=== PATIENT | male | born 1935 | race African-American/Black ===

== ENCOUNTER 2016-12-06 08:46 | Outpatient (CLI) | payer MEDICARE, OTHER ==
[~2016-12-06] VITALS: Ht 165.1 cm; Wt 71.2 kg
[2016-12-06 09:38] VITALS: BP 135/51
[2016-12-06] MEDS ORDERED: ACETAMINOPHEN325 M1 ORAL (10:55)
[2016-12-06] MEDS ORDERED: MINOXIDIL2.5 MG GT (10:55)
[2016-12-06] MEDS ORDERED: HYDRALAZINE HCL25 M1 GT (10:55)
[2016-12-06] MEDS ORDERED: MILK OF MA400 MG/51 ORAL (10:55)
[2016-12-06] MEDS ORDERED: CRANBERRY450 M3 GT (10:55)
[2016-12-06] MEDS ORDERED: ZYPREXA2.5 MG GT (10:55)
[2016-12-06] MEDS ORDERED: COLACE100 MG GT (10:55)
[2016-12-06] MEDS ORDERED: LABETALOL HCL100 MG GT (10:55)
[2016-12-06] MEDS ORDERED: LEVETIRACE100 MG/1 M GT (10:55)
[2016-12-06] MEDS ORDERED: LEVOTHYROXINE125 MCG GT (10:55)
[2016-12-06] MEDS ORDERED: TAMSULOSIN HCL0.4 MG GT (10:55)
[2016-12-06] MEDS ORDERED: NEPHROVITE1 TAB GT (10:55)
[2016-12-06] MEDS ORDERED: AMLODIPINE BESYL5 MG GT (10:55)
[2016-12-06] MEDS ORDERED: LORAZEPAM1 MG ORAL (10:55)
[2016-12-06] MEDS ORDERED: OMEPRAZOLE40 M1 GT (10:55)
--- NOTE | 2016-12-06 11:07 | GI Initial Consult Note ---
History of Present Illness General Date patient seen: Dec 06, 2016 Time patient seen: 10:00 Referring physician: KELLY Reason for Consultation: GTUBE REMOVAL Present Illness HPI 81 year old male patient referred by Dr. Valentino for G Tube removal today. The patient had the Gtube palced in 2015 due to dental issues and was unable to eat at the time. Currently okay with oral intake and PO meds. Has not been using the GT. Denies any weight loss or changes in dietary habits. Home Meds Reported Medications Acetaminophen* (ACETAMINOPHEN 325MG TABLET*) 325 Mg Tablet, 650 MG ORAL Q4H Y for Pain Scale (3-5), TAB 12/06/16 Tamsulosin Hcl (TAMSULOSIN HCL*) 0.4 Mg Cap.er.24h, 0.4 MG GT BEDTIME, CAP 12/06/16 Omeprazole (OMEPRAZOLE) 40 Mg Capsule.dr, 40 MG GT DAILY, CAP 12/06/16 Olanzapine* (ZYPREXA*) 2.5 Mg Tablet, 2.5 MG GT DAILY, #30 TAB 0 Refills 12/06/16 Vitamin B Cmplx/Vit C/Folic AC (Nephro-Kecia Tablet) 0.8 Mg Tablet, 1 TAB GT DAILY, #30 TAB 0 Refills 12/06/16 Minoxidil* (LONITEN*) 2.5 Mg Tablet, 5 MG GT DAILY, TAB 12/06/16 Magnesium Hydroxide* (MILK OF MAGNESIA*) 400 Mg/5 Ml Oral.susp, 30 ML ORAL PRN, ML 12/06/16 Lorazepam* (LORAZEPAM*) 1 Mg Tablet, 1 MG ORAL Q8HR, TAB 12/06/16 Levothyroxine Sodium* (LEVOTHYROXINE SODIUM*) 125 Mcg Tablet, 125 MCG GT DAILY, TAB Take in the morning on an empty stomach, at least 30 minutes before food. 12/06/16 Levetiracetam* (LEVETIRACETAM*) 100 Mg/1 Ml Solution, 500 MG GT BID 12/06/16 Labetalol Hcl* (NORMODYNE*) 100 Mg Tablet, 400 MG GT EVERY 12 HOURS, TAB 12/06/16 Hydralazine Hcl* (HYDRALAZINE HCL*) 25 Mg Tablet, 25 MG GT Q6HR, TAB 0 Refills 12/06/16 Cranberry Fruit Concentrate (CRANBERRY) 450 Mg Tablet, 450 MG GT DAILY, TAB 12/06/16 Docusate Sodium* (COLACE*) 100 Mg Capsule, 100 MG GT DAILY, CAP 12/06/16 Amlodipine Besylate* (AMLODIPINE BESYLATE*) 5 Mg Tablet, 5 MG GT DAILY, TAB 12/06/16 Med list reviewed/reconciled: Yes Allergies: Coded Allergies: No Known Allergies (Unverified , 12/06/16) Patient History History Provided By: Patient PMH Narrative Anemia ESRD NSTEMI hypothyroidism chronic pancreatitis arthritis dementia GERD HTN Social History: Denies: smoking, alcohol use, drug use, other Review of Systems All Other Systems: limited Physical Exam Vital Signs Date Time Temp Pulse Resp B/P (MAP) Pulse Ox O2 Delivery O2 Flow Rate FiO2 12/06/16 09:38 98.1 65 16 135/51 Sp02 EP Interpretation: reviewed General Appearance: well appearing, no apparent distress, alert Head: normocephalic EENT: PERRL/EOMI, normal ENT inspection Neck: supple Respiratory: normal breath sounds, no respiratory distress Cardiovascular: regular rhythm Gastrointestinal: normal inspection, non tender, soft, gt - present Rectal: deferred Genitourinary: no CVA tenderness Musculoskeletal: normal inspection, back normal, other - ambulates with cane Neurologic: normal inspection, alert, oriented x3, responsive Psychiatric: normal inspection, other - forgetful Skin: normal inspection, normal color, no rash, warm/dry Lymphatic: normal inspection, no adenopathy GI: Plan Problems: (1) PEG (percutaneous endoscopic gastrostomy) adjustment/replacement/removal (2) Anemia (3) ESRD (end stage renal disease) (4) Hypothyroidism (5) Chronic pancreatitis (6) Arthritis (7) Dementia (8) GERD (gastroesophageal reflux disease) (9) HTN (hypertension) Plan GT removed, patient tolerated procedure well. - do not shower for 24 hours. - dressing change prn RTC x 3 months will consider colonoscopy Thank you for referring this patient. Tiera An N.P. Dec 06, 2016 11:07
== END 2016-12-06 09:30 | disposition home or self-care (01) ==
LOC: PAN 08:46
DX: Z43.1 Encounter for attention to gastrostomy (principal); D64.9 Anemia, unspecified; I12.0 Hypertensive chronic kidney disease with stage 5 chronic kidney disease or end stage renal disease; N18.6 End stage renal disease; E03.9 Hypothyroidism, unspecified; K86.1 Other chronic pancreatitis; M19.90 Unspecified osteoarthritis, unspecified site; F03.90 Unspecified dementia, unspecified severity, without behavioral disturbance, psychotic disturbance, mood disturbance, and anxiety; K21.9 Gastro-esophageal reflux disease without esophagitis
CPT/HCPCS: 99201

== ENCOUNTER 2017-03-21 10:02 | Outpatient (CLI) | payer MEDICARE, OTHER ==
[~2017-03-21 10:02] MED LIST: ACETAMINOPHEN325 M1 ORAL; AMLODIPINE BESYL5 MG PO; COLACE100 MG GT; CRANBERRY450 M3 GT; HYDRALAZINE HCL25 M1 PO; LABETALOL HCL100 MG PO; LEVETIRACE100 MG/1 M PO; LEVOTHYROXINE125 MCG PO; LORAZEPAM1 MG ORAL; MILK OF MA400 MG/51 ORAL; MINOXIDIL2.5 MG PO; NEPHROVITE1 TAB PO; OMEPRAZOLE40 M1 GT; TAMSULOSIN HCL0.4 MG PO; ZYPREXA2.5 MG GT
--- NOTE | 2017-03-21 10:51 | GI Progress Note ---
Assessment/Plan Problems: (1) Anemia ICD Codes: D64.9 - Anemia, unspecified SNOMED: 437705638 (2) Dementia ICD Codes: F03.90 - Unspecified dementia without behavioral disturbance SNOMED: 35837044 (3) PEG (percutaneous endoscopic gastrostomy) adjustment/replacement/removal ICD Codes: Z43.1 - Encounter for attention to gastrostomy SNOMED: 830163576, 335788059 Status: stable Status Narrative Discussed with Dr. Mcdaniel. Assessment/Plan anemia labs reviewed >> - Hgb 9.0, Nov 2016 - Hgb 14.9, 03/14/17. s/p GT site removal assessed. cont plan of care RTC x 6 months Subjective Subjective denies blood in stool decrease in appetite Objective T 97.8 BP 124/42 P 63 98 RA WT 144 98 RA General Appearance: WD/WN, no apparent distress, alert Cardiovascular: normal rate Respiratory/Chest: normal breath sounds, no respiratory distress Abdominal Exam: normal bowel sounds, non tender, soft Extremities: normal range of motion, non-tender Tiera An N.PLivan Mar 21, 2017 10:50
[2017-03-21 11:19] VITALS: BP 124/42
== END 2017-03-21 10:34 | disposition home or self-care (01) ==
LOC: PAN 10:02
DX: Z43.1 Encounter for attention to gastrostomy (principal); D64.9 Anemia, unspecified; F03.90 Unspecified dementia, unspecified severity, without behavioral disturbance, psychotic disturbance, mood disturbance, and anxiety
CPT/HCPCS: 99212

== ENCOUNTER 2017-05-16 09:47 | Outpatient (CLI) | payer MEDICARE, OTHER ==
[2017-05-16 15:20] VITALS: BP 129/75
--- NOTE | 2017-05-17 15:33 | GI Progress Note ---
Assessment/Plan Problems: (1) Colonoscopy planned SNOMED: 814517366 (2) Anemia ICD Codes: D64.9 - Anemia, unspecified SNOMED: 942166433 Status: stable Status Narrative Seen with Dr. Mcdaniel. Assessment/Plan EGD/colonoscopy scheduled 05/22/17 - CLD & (Nulytely/Suprep/Movi-Prep) prep instructions given and acknowledged by patient. - NPO @ DE day prior procedure explained. The patient was seen and examined at bedside and all new and available data was reviewed in the patients chart. I agree with the above findings, impression and plan. (Patient seen earlier today. Signature stamp does not reflect patient encounter time.). - Kade Mcdaniel MD Subjective Gastrointestinal/Abdominal: Reports: no symptoms Subjective s/p GT removal weight loss Objective T 98.1 BP 129/45 P 68 General Appearance: WD/WN, no apparent distress, alert Cardiovascular: normal rate Respiratory/Chest: normal breath sounds, no respiratory distress Abdominal Exam: normal bowel sounds, non tender, soft Extremities: normal range of motion, non-tender Tiera An N.PLivan May 17, 2017 15:33 KEILY MCDANIEL May 24, 2017 11:30
== END 2017-05-16 10:20 | disposition home or self-care (01) ==
LOC: ANE 09:47 → PAN 10:20
DX: D64.9 Anemia, unspecified (principal)

== ENCOUNTER 2017-05-30 09:45 | Day surgery (SDC) | payer MEDICARE, OTHER ==
--- NOTE | 2017-05-23 07:01 | Anethesia Preoperative Eval ---
Anesthesia Pre-op PMH/ROS General Date of Evaluation: May 23, 2017 Time of Evaluation: 06:54 Anesthesiologist: colin ASA Score: ASA 4 Mallampati Score Class I : Soft palate, uvula, fauces, pillars visible Class II: Soft palate, uvula, fauces visible Class III: Soft palate, base of uvula visible Class IV: Only hard plate visible Mallampati Classification: Class II Surgeon: sandrita Diagnosis: anemia Surgical Procedure: egd/colonoscopy Anesthesia History: none Family History: no anesthesia problems Allergies: Coded Allergies: No Known Allergies (Unverified , 12/06/16) Medications: see eMAR Past Medical History Cardiovascular: Reports: HTN Pulmonary: Reports: COPD Gastrointestinal/Genitourinary: Reports: GERD, ESRD, other - pancreatitis Neurologic/Psychiatric: Reports: dementia, CVA Endocrine: Reports: DM, hypothyroidism Hematology/Immune: Reports: anemia Musculoskeletal/Integumentary: Reports: OA Anesthesia Pre-op Phys. Exam Physician Exam Constitutional: NAD Neurologic: CN 2-12 intact Cardiovascular: RRR Respiratory: CTA Gastrointestinal: S/NT/ND Airway Exam Mallampati Score: Class II MO: limited Neck: short TMD: 2fb ROM: limited Anesthesia Pre-op A/P Risk Assessment & Plan Assessment: asa4 Plan: mac Status Change Before Surgery: No Pre-Antibiotics Drug: BRIAN Davalos May 23, 2017 07:01
[~2017-05-30] VITALS: Ht 172.7 cm; Wt 68.0 kg
[2017-05-30] VITALS (7 sets, daily range): BP systolic 120–154; BP diastolic 46–75
[~2017-05-30 09:45] MED LIST changes: +Atropine Inj 1mg/10ml Syr IV PRN; +DiphenhydrAMINE 50mg/ml Inj IVP PRN; +Midazolam 2mg/2ml Inj IVP PRN; +fentaNYL 100 mcg/2 mL IV PRN
[2017-05-30] MEDS ORDERED: Propofol 200mg/20ml IV ONE (09:46)
[2017-05-30] MEDS ORDERED: Lidocaine 1% MPF 10mg/ml 5ml ONE (09:46)
[2017-05-30] MEDS ORDERED: LR 1000ml ONE (09:46)
--- NOTE | 2017-05-30 10:51 | Anethesia Preoperative Eval ---
Anesthesia Pre-op PMH/ROS General Date of Evaluation: May 30, 2017 Anesthesiologist: Irving ASA Score: ASA 4 Mallampati Score Class I : Soft palate, uvula, fauces, pillars visible Class II: Soft palate, uvula, fauces visible Class III: Soft palate, base of uvula visible Class IV: Only hard plate visible Mallampati Classification: Class II Surgeon: Jonas Diagnosis: ?GI bleed Surgical Procedure: EGD and colonoscopy Anesthesia History: none Family History: no anesthesia problems Allergies: Coded Allergies: No Known Allergies (Unverified , 05/30/17) Medications: see eMAR Past Medical History Cardiovascular: Reports: HTN, CAD, OR, other - h/o NSTEMI, Denies: valve dz, arrhythmia Pulmonary: Reports: COPD, Denies: asthma, DANIEL, other Gastrointestinal/Genitourinary: Reports: GERD, ESRD - on dialysis-M,W,F, Denies: CRI, other Neurologic/Psychiatric: Reports: dementia, CVA, depression/anxiety, other - seizures, schizophrenia, Denies: TIA Endocrine: Reports: DM, hypothyroidism, Denies: steroids, other HEENT: Denies: cataract (L), cataract (R), glaucoma, YAVAPAI-APACHE (L), YAVAPAI-APACHE (R), other Hematology/Immune: Reports: anemia, Denies: DVT, bleeding disorder, other Musculoskeletal/Integumentary: Reports: OA, DJD, Denies: RA, DDD, edema, other PSxH Narrative: Fistula Anesthesia Pre-op Phys. Exam Physician Exam see chart Constitutional: NAD Cardiovascular: RRR Respiratory: CTA Airway Exam Mallampati Score: Class II MO: full ROM: full Teeth: intact Anesthesia Pre-op A/P Labs Chemistry Test 05/30/17 10:20 Potassium Level 4.9 MMOL/L (3.5-5.1) Studies Pre-op Studies: EKG - sr Risk Assessment & Plan Assessment: ASA IV Plan: MAC Status Change Before Surgery: No Pre-Antibiotics Drug: N/A JOSE ANGEL CHAVEZ M.D. May 30, 2017 10:51
[2017-05-30] MEDS ORDERED: ASPIR 8181 MG ORAL (10:53)
[2017-05-30] MEDS ORDERED: DEPAKOTE ER250 MG ORAL (10:53)
[2017-05-30] MEDS ORDERED: LR 1000ml 1,000 ML IVLG SCH (11:04)
[2017-05-30] MEDS ORDERED: fentaNYL 100 mcg/2 mL IV PRN (11:15)
[2017-05-30] MEDS ORDERED: Hydromorphone 0.5mg/0.5ml inj IVP PRN (11:15)
[2017-05-30] MEDS ORDERED: DiphenhydrAMINE 50mg/ml Inj IVP PRN (11:15)
--- NOTE | 2017-05-30 12:10 | Immediate Post-Op Evaluation ---
Immediate Post-Op Evalulation Immediate Post-Op Evalulation Procedure: EGD and colonoscopy Date of Evaluation: May 30, 2017 Time of Evaluation: 13:22 IV Fluids: 300 Blood Products: 0 Estimated Blood Loss: 0 Urinary Output: 0 Blood Pressure Systolic: 151 Blood Pressure Diastolic: 55 Pulse Rate: 69 Respiratory Rate: 18 O2 Sat by Pulse Oximetry: 98 Temperature (Fahrenheit): 97.7 Pain Score (1-10): 0 Nausea: No Vomiting: No Complications 0 Patient Status: awake, reacts, patent, none Hydration Status: adequate Drug: N/A JOSE ANGEL CHAVEZ M.D. May 30, 2017 12:10
--- NOTE | 2017-05-30 12:11 | 48 Hour Post Anesthesia Eval ---
Post Anesthesia Evaluation Procedure: EGD and colonoscopy Date of Evaluation: May 30, 2017 Time of Evaluation: 14:30 Blood Pressure Systolic: 142 0: 55 Pulse Rate: 72 Respiratory Rate: 20 Temperature (Fahrenheit): 98 O2 Sat by Pulse Oximetry: 100 Airway: patent Nausea: No Vomiting: No Pain Intensity: 0 Hydration Status: adequate Cardiopulmonary Status: at baseline Mental Status/LOC: patient returned to baseline Post-Anesthesia Complications: 0 Follow-up care needed: ready to discharge JOSE ANGEL CHAVEZ M.D. May 30, 2017 12:10
--- NOTE | 2017-05-30 12:24 | Pre-Procedure Note/Attestation ---
Pre-Procedure Note/Attestation Complete Prior to Procedure Planned Procedure: not applicable Procedure Narrative: esophagogastroduodenoscopy and colonoscopy Indications for Procedure Pre-Operative Diagnosis: screening colon, GERD Attestation I attest that I discussed the nature of the procedure; its benefits; risks and complications; and alternatives (and the risks and benefits of such alternatives ), prior to the procedure, with the patient (or the patient's legal teleservices representative). I attest that, if there was a reasonable possibility of needing a blood transfusion, the patient (or the patient's legal teleservices representative) was given the [facility] standardized written summary, pursuant to the [employer] Blood Safety Act ([place] Health and Safety Code # 1645, as amended). I attest that I re-evaluated the patient just prior to the surgery and that there has been no change in the patient's H&P, except as documented below: KEILY DRAPER May 30, 2017 12:24
--- NOTE | 2017-05-30 12:25 | Short Stay Surgery H&P ---
History of Present Illness History of Present Illness Chief Complaint see recent office note HPI Enrike Juarez is a 82 year old male who was admitted on for Anemia Patient History Allergies: Coded Allergies: No Known Allergies (Unverified , 05/30/17) PAST MEDICAL HISTORY: Past Surgeries: Social History: Medication History Scheduled Amlodipine Besylate* (Amlodipine Besylate*), 5 MG PO BID, (Reported) Aspirin* (Aspir 81*), 81 MG ORAL DAILY, (Reported) Divalproex Sodium* (Depakote Er*), 250 MG ORAL TID, (Reported) Hydralazine Hcl* (Hydralazine Hcl*), 25 MG PO QID, (Reported) Labetalol Hcl* (Normodyne*), 400 MG PO EVERY 12 HOURS, (Reported) Levetiracetam* (Levetiracetam*), 500 MG PO BID, (Reported) Levothyroxine Sodium* (Levothyroxine Sodium*), 125 MCG PO DAILY, (Reported) Minoxidil* (Loniten*), 5 MG PO DAILY, (Reported) Tamsulosin Hcl (Tamsulosin Hcl*), 0.4 MG PO BEDTIME, (Reported) Vitamin B Cmplx/Vit C/Folic AC (Nephro-Kecia Tablet), 1 TAB PO DAILY, (Reported) Discontinued Medications Acetaminophen* (Acetaminophen 325MG Tablet*), 650 MG ORAL Q4H PRN for Pain Scale (3-5), (Reported) Discontinued Reason: Pt stopped taking med Cranberry Fruit Concentrate (Cranberry), 450 MG GT DAILY, (Reported) Discontinued Reason: Pt stopped taking med Docusate Sodium* (Colace*), 100 MG GT DAILY, (Reported) Discontinued Reason: Pt stopped taking med Lorazepam* (Lorazepam*), 1 MG ORAL Q8HR, (Reported) Discontinued Reason: Pt stopped taking med Magnesium Hydroxide* (Milk Of Magnesia*), 30 ML ORAL PRN, (Reported) Discontinued Reason: Pt stopped taking med Olanzapine* (Zyprexa*), 2.5 MG GT DAILY, (Reported) Discontinued Reason: Pt stopped taking med Omeprazole (Omeprazole), 40 MG GT DAILY, (Reported) Discontinued Reason: Pt stopped taking med Physical Exam Vital Signs Last Vital Signs Date Time Temp Pulse Resp B/P (MAP) Pulse Ox O2 Delivery O2 Flow Rate FiO2 05/30/17 10:54 98.3 67 18 154/75 99 Room Air 98.3 Labs Laboratory Tests Test 05/30/17 10:20 Potassium Level 4.9 MMOL/L (3.5-5.1) Plan Attestation Are the patient's medical conditions optimized for surgery? KEILY DRAPER May 30, 2017 12:25
--- NOTE | 2017-05-30 13:02 | Endoscopy Procedure Note ---
Endoscopy Procedure Note General Indication for Procedure: SCREENING COLON, gerd Procedures Performed: EGD, colonoscopy Operative Findings/Diagnosis: ONE COLON POLYP, GASTRITIS Specimen: yes Pt Tolerated Procedure Well: Yes Estimated Blood Loss: none Anesthesia Anesthesiologist: KATHRYN Anesthesia: MAC Inserted Devices Implant(s) used?: No Quality Quality of Bowel Preparation: Fair Did scope reach the cecum?: Yes Was there any complications?: No GI Core Measures 50 yrs or older w/o bx or poly: No 10yrs. F/U not recommended: Yes If not recommended, why?: Above average risk 10 yrs. F/U needed: No KEILY DRAPER May 30, 2017 13:02
--- NOTE | 2017-05-30 18:15 | Procedure Note ---
DATE OF PROCEDURE: 05/30/2017 SURGEON: Homero Mcdaniel M.D. PROCEDURE: Upper endoscopy with biopsy and colonoscopy with biopsy. ANESTHESIA: Per Dr. Villatoro. INSTRUMENT: Olympus adult flexible upper endoscope and colonoscope. INDICATION: Screening colonoscopy evaluation and chronic anemia. The procedure, risks, benefits, and possible consequences, including hemorrhage, aspiration, perforation and infection, and alternative treatments, were explained to the patient/legal guardian by Dr. Homero Mcdaniel and the patient/legal guardian understood and accepted these risks. DESCRIPTION OF PROCEDURE: After informed consent was obtained and the patient was adequately sedated, Olympus upper endoscope was advanced from the mouth into the second portion of the duodenum and retroflexion was performed in the stomach. The patient had a small esophageal ring, small hiatal hernia, diffuse gastritis. Random biopsy from body and antrum was obtained to rule out H. pylori infection. At this time, the upper endoscope was retrieved. The patient was turned over for colonoscopy. First, rectal exam was performed, which was normal. Then, the scope was advanced from the rectum into the cecum. Quality of prep was poor. 30% of the colonic mucosa was not seen in this examination given the poor prep. The patient had one diminutive polyp in the transverse colon, which was removed with cold biopsy forceps technique. The patient had retroflexion of the rectum, which showed evidence of a medium-sized internal hemorrhoid. The patient tolerated the procedure very well without any complication. SUMMARY OF FINDINGS: 1. Distal esophageal ring. 2. Small hiatal hernia. 3. Gastritis, status post biopsy. 4. One colonic polyp, removed, see above for details. 5. Poor colonic prep. 6. Internal hemorrhoids. RECOMMENDATIONS: Follow biopsy results and treat accordingly. Homero Mcdaniel M.D. DR: ALISA JOB#: [id number] CC:
--- NOTE | 2017-05-31 03:16 | Procedure Note ---
DATE OF PROCEDURE: 05/30/2017 NOTE: POOR AUDIO SURGEON: Homero Mcdaniel M.D. PROCEDURE: Upper endoscopy with biopsy and colonoscopy . ANESTHESIA: Dr. Villatoro. INSTRUMENT: Olympus adult flexible endoscope and colonoscope. INDICATION: Anemia and screening colonoscopy evaluation. REASON FOR PROCEDURE: The procedure, risks, benefits, and possible consequences, including hemorrhage, aspiration, perforation and infection, and alternative treatments, were explained to the patient/legal guardian by Dr. Homero Mcdaniel and the patient/legal guardian understood and accepted these risks. DESCRIPTION OF PROCEDURE: After informed consent was obtained and the patient was adequately sedated, Olympus upper endoscope was advanced from mouth to second portion of duodenum and retroflexion was performed in the stomach. small hiatal hernia, otherwise upper endoscope was normal. Gastritis was seen in the body and the antrum, which was biopsied to rule out H. pylori infection. At this time, the upper endoscope was retrieved and the patient was turned over for colonoscopy. First, rectal exam was performed . Then, the scope was advanced from the rectum into the cecum. Quality of prep was poor. see about . SUMMARY OF FINDINGS: 1. gastritis . 2. prep . 3. 4. RECOMMENDATIONS: Follow up biopsy results and treat accordingly. Homero Mcdaniel M.D. DR: ALISA JOB#: [id number] CC:
[2017-05-31 08:12] VITALS: BP 142/55
--- NOTE | 2017-05-31 17:00 | Cardiology Report ---
APPROVED REPORT EKG Measurement Heart [id number] Sinus rhythm with 1st degree AV block Septal infarct, age undetermined Abnormal ECG
== END 2017-05-30 14:30 | disposition home or self-care (01) ==
LOC: GAS 09:45
DX: Z12.11 Encounter for screening for malignant neoplasm of colon (principal); D64.9 Anemia, unspecified; K29.70 Gastritis, unspecified, without bleeding; K44.9 Diaphragmatic hernia without obstruction or gangrene; K64.8 Other hemorrhoids; D12.3 Benign neoplasm of transverse colon; K29.50 Unspecified chronic gastritis without bleeding; K63.5 Polyp of colon; K22.2 Esophageal obstruction; Z79.82 Long term (current) use of aspirin; I25.2 Old myocardial infarction; J44.9 Chronic obstructive pulmonary disease, unspecified; K21.9 Gastro-esophageal reflux disease without esophagitis; I13.11 Hypertensive heart and chronic kidney disease without heart failure, with stage 5 chronic kidney disease, or end stage renal disease; E11.22 Type 2 diabetes mellitus with diabetic chronic kidney disease; N18.6 End stage renal disease; Z99.2 Dependence on renal dialysis; E03.9 Hypothyroidism, unspecified; M19.90 Unspecified osteoarthritis, unspecified site
CPT/HCPCS: 36415; 43239; 45380; 82962; 84132; 93005; J2704; J7120; 94003; 94150

== ENCOUNTER 2017-06-29 13:31 | Outpatient (CLI) | payer MEDICARE, OTHER ==
[~2017-06-29 13:31] MED LIST changes: +ASPIR 8181 MG ORAL; -Atropine Inj 1mg/10ml Syr IV PRN; +DEPAKOTE ER250 MG ORAL; -DiphenhydrAMINE 50mg/ml Inj IVP PRN; -Midazolam 2mg/2ml Inj IVP PRN; -fentaNYL 100 mcg/2 mL IV PRN
--- NOTE | 2017-06-29 14:47 | GI Progress Note ---
Assessment/Plan Problems: (1) Anemia ICD Codes: D64.9 - Anemia, unspecified SNOMED: 611183826 (2) Dementia ICD Codes: F03.90 - Unspecified dementia without behavioral disturbance SNOMED: 48728121 (3) GERD (gastroesophageal reflux disease) ICD Codes: K21.9 - Gastro-esophageal reflux disease without esophagitis SNOMED: 736487021 Status: unchanged Status Narrative Seen with Dr. Mcdaniel. Assessment/Plan SUMMARY OF FINDINGS reviewed with patient: 1. Distal esophageal ring. 2. Small hiatal hernia. 3. Gastritis, status post biopsy. 4. One colonic polyp, removed, see above for details. 5. Poor colonic prep. 6. Internal hemorrhoids. RECOMMENDATIONS: Follow biopsy results and treat accordingly. Labs drawn today >> CBC, CEA, CA19-9, CMP RTC after lab studies Subjective Gastrointestinal/Abdominal: Reports: no symptoms Objective General Appearance: WD/WN, no apparent distress, alert Cardiovascular: normal rate Respiratory/Chest: normal breath sounds, no respiratory distress Abdominal Exam: normal bowel sounds, non tender, soft Extremities: normal range of motion, non-tender Tiera An N.P. Jun 29, 2017 14:47
[2017-06-29 16:55] LABS: BASOPHILS % (AUTO) 0.5 % (0.0-2.0); EOSINOPHILS % (AUTO) 12.9 % (0.0-3.0); HEMATOCRIT 39.7 % (42.0-52.0); HEMOGLOBIN 12.7 G/DL (14.2-18.0); LYMPHOCYTES % (AUTO) 21.1 % (20.0-45.0); MEAN CORPUSCULAR VOLUME 89 FL (80-99); MONOCYTES % (AUTO) 10.8 % (1.0-10.0); NEUTROPHILS % (AUTO) 54.7 % (45.0-75.0); PLATELET COUNT 215 K/UL (150-450); RED BLOOD COUNT 4.48 M/UL (4.70-6.10); RED CELL DISTRIBUTION WIDTH 15.2 % (11.6-14.8); WHITE BLOOD COUNT 5.8 K/UL (4.8-10.8)
[2017-06-29 17:06] LABS: ALANINE AMINOTRANSFERASE 18 U/L (12-78); ALBUMIN 3.1 G/DL (3.4-5.0); ALBUMIN/GLOBULIN RATIO 0.6 (1.0-2.7); ALKALINE PHOSPHATASE 170 U/L (46-116); ANION GAP 11 mmol/L (5-15); ASPARTATE AMINO TRANSFERASE 18 U/L (15-37); BILIRUBIN,TOTAL 0.3 MG/DL (0.2-1.0); BLOOD UREA NITROGEN 56 mg/dL (7-18); CALCIUM 9.2 MG/DL (8.5-10.1); CARBON DIOXIDE 26 MMOL/L (21-32); CHLORIDE 99 MMOL/L (98-107); CREATININE 4.9 MG/DL (0.55-1.30); POTASSIUM 4.5 MMOL/L (3.5-5.1); SODIUM 136 MMOL/L (136-145)
== END 2017-06-29 14:05 | disposition home or self-care (01) ==
LOC: PAN 13:31
DX: K21.9 Gastro-esophageal reflux disease without esophagitis (principal); D64.9 Anemia, unspecified; F03.90 Unspecified dementia, unspecified severity, without behavioral disturbance, psychotic disturbance, mood disturbance, and anxiety; K44.9 Diaphragmatic hernia without obstruction or gangrene; K29.70 Gastritis, unspecified, without bleeding; K64.8 Other hemorrhoids; K63.5 Polyp of colon
CPT/HCPCS: 36415; 80053; 82378; 85025; G0463; 99212

== ENCOUNTER 2017-11-09 12:51 | Outpatient (CLI) | payer MEDICARE, OTHER ==
--- NOTE | 2017-11-09 13:51 | GI Progress Note ---
Assessment/Plan Problems: (1) Constipation ICD Codes: K59.00 - Constipation, unspecified SNOMED: 21149756 (2) PEG (percutaneous endoscopic gastrostomy) adjustment/replacement/removal ICD Codes: Z43.1 - Encounter for attention to gastrostomy SNOMED: 592143501, 576054433 (3) Anemia ICD Codes: D64.9 - Anemia, unspecified SNOMED: 278564734 (4) GERD (gastroesophageal reflux disease) ICD Codes: K21.9 - Gastro-esophageal reflux disease without esophagitis SNOMED: 542967618 (5) Dementia ICD Codes: F03.90 - Unspecified dementia without behavioral disturbance SNOMED: 98621938 Status: stable Status Narrative Seen with Dr. Mcdaniel. Assessment/Plan EGD/colonoscopy done 05/2017. s/p GT removal 07/2017 site healed without any complications patient tolerating diet Rx miralax RTC x 6 months/prn The patient was seen and examined at bedside and all new and available data was reviewed in the patients chart. I agree with the above findings, impression and plan. (Patient seen earlier today. Signature stamp does not reflect patient encounter time.). - Homero Mcdaniel MD Subjective Subjective occasional constipation Objective T 98.1 BP 124/50 P 60 99 RA General Appearance: WD/WN, no apparent distress, alert Cardiovascular: normal rate Respiratory/Chest: normal breath sounds, no respiratory distress Abdominal Exam: normal bowel sounds, non tender, soft Extremities: non-tender Carol An DISHWASHER BUSSER Nov 09, 2017 13:51
== END 2017-11-09 13:21 | disposition home or self-care (01) ==
LOC: PAN 12:51
DX: Z43.1 Encounter for attention to gastrostomy (principal); K59.00 Constipation, unspecified; D64.9 Anemia, unspecified; K21.9 Gastro-esophageal reflux disease without esophagitis; F03.90 Unspecified dementia, unspecified severity, without behavioral disturbance, psychotic disturbance, mood disturbance, and anxiety
CPT/HCPCS: 99212

== ENCOUNTER 2018-02-16 11:08 | Inpatient (IN) | payer MEDICARE, OTHER ==
[~2018-02-16] VITALS: Ht 172.7 cm; Wt 75.7 kg
[2018-02-16 11:15] VITALS: BP 107/52
[2018-02-16 11:42] LABS: HEMATOCRIT 23.4 % (42.0-52.0); HEMOGLOBIN 7.3 G/DL (14.2-18.0); MEAN CORPUSCULAR VOLUME 84 FL (80-99); PLATELET COUNT 203 K/UL (150-450); RED BLOOD COUNT 2.79 M/UL (4.70-6.10); RED CELL DISTRIBUTION WIDTH 13.8 % (11.6-14.8); WHITE BLOOD COUNT 8.9 K/UL (4.8-10.8)
[2018-02-16 11:52] LABS: ANION GAP 11 mmol/L (5-15); BLOOD UREA NITROGEN 43 mg/dL (7-18); CALCIUM 8.8 MG/DL (8.5-10.1); CARBON DIOXIDE 24 MMOL/L (21-32); CHLORIDE 105 MMOL/L (98-107); CREATININE 6.1 MG/DL (0.55-1.30); POTASSIUM 4.6 MMOL/L (3.5-5.1); SODIUM 140 MMOL/L (136-145)
[2018-02-16 11:57] LABS: ALANINE AMINOTRANSFERASE 11 U/L (12-78); ALBUMIN 2.3 G/DL (3.4-5.0); ALBUMIN/GLOBULIN RATIO 0.4 (1.0-2.7); ALKALINE PHOSPHATASE 90 U/L (46-116); ASPARTATE AMINO TRANSFERASE 28 U/L (15-37); BILIRUBIN,TOTAL 0.4 MG/DL (0.2-1.0)
--- NOTE | 2018-02-16 14:01 | Emergency Room Report ---
History of Present Illness General Chief Complaint: Abnormal Labs Source: Medical Record Present Illness HPI Mr. Juarez is an 83 yo male with hx of ESRD who was brought from SNF for evaluation of low hbg per outpatient labs. Dr. Flores is aware of patient. Patient denies pain. Hx is limited due to patient's baseline mental status. Allergies: Coded Allergies: No Known Allergies (Unverified , 05/30/17) Patient History Limited by: age, medical condition Past Medical History: see triage record, old chart reviewed Past Surgical History: unable to obtain Social History: Denies: smoking, alcohol use, drug use Reviewed Nursing Documentation: PMH: Agreed; PSxH: Agreed Nursing Documentation-PMH Past Medical History: No History, Except For Hx Cardiac Problems: Yes - hypothyroism, anemia, HF Hx Hypertension: Yes Hx COPD: Yes Hx Diabetes: Yes - type II Hx Cancer: No Hx Gastrointestinal Problems: Yes - dysphagia, g-tube, GERD Hx Dialysis: Yes - T [facility] Hx Neurological Problems: Yes - s/p left hip fx on 01/28, muscle weakness Hx Cerebrovascular Accident: Yes Hx Transient Ischemic Attacks: Yes Hx Dementia: Yes Hx Seizures: Yes Review of Systems All Other Systems: limited - elderly patient Physical Exam Vital Signs Date Time Temp Pulse Resp B/P (MAP) Pulse Ox O2 Delivery O2 Flow Rate FiO2 02/16/18 11:15 97.0 63 16 107/52 100 Room Air Sp02 EP Interpretation: reviewed, normal General Appearance: normal inspection, no apparent distress, alert, non-toxic, Chronically Ill Eyes: bilateral eye normal inspection ENT: hearing grossly normal, normal pharynx, no angioedema, normal voice Neck: normal inspection, full range of motion, supple Respiratory: normal inspection, chest non-tender, lungs clear, normal breath sounds, no rhonchi, no respiratory distress, no retraction Cardiovascular #1: normal inspection, regular rate, rhythm, no gallop, no rub Gastrointestinal: normal inspection, normal bowel sounds, non tender, soft Rectal: normal exam, normal rectal tone, heme negative stool, other - brown stool Musculoskeletal: back normal Neurologic: alert, responsive Psychiatric: other - pleasant slightly confused Skin: normal inspection, normal color Medical Decision Making Diagnostic Impression: Primary Impression: Anemia Additional Impression: ESRD (end stage renal disease) on dialysis ER Course Severe anemia confirmed on labs today, attributed to anemia of chronic disease, no indication of GI bleed, tranfusion and type and cross ordered, Dr. Flores will admit for transfusion and dialysis to telemetry Labs Test 02/16/18 11:24 White Blood Count 8.9 K/UL (4.8-10.8) Red Blood Count 2.79 M/UL (4.70-6.10) Hemoglobin 7.3 G/DL (14.2-18.0) Hematocrit 23.4 % (42.0-52.0) Mean Corpuscular Volume 84 FL (80-99) Mean Corpuscular Hemoglobin 26.3 PG (27.0-31.0) Mean Corpuscular Hemoglobin Concent 31.3 G/DL (32.0-36.0) Red Cell Distribution Width 13.8 % (11.6-14.8) Platelet Count 203 K/UL (150-450) Mean Platelet Volume 6.3 FL (6.5-10.1) Neutrophils (%) (Auto) % (45.0-75.0) Lymphocytes (%) (Auto) % (20.0-45.0) Monocytes (%) (Auto) % (1.0-10.0) Eosinophils (%) (Auto) % (0.0-3.0) Basophils (%) (Auto) % (0.0-2.0) Differential Total Cells Counted 100 Neutrophils % (Manual) 69 % (45-75) Lymphocytes % (Manual) 15 % (20-45) Monocytes % (Manual) 5 % (1-10) Eosinophils % (Manual) 10 % (0-3) Basophils % (Manual) 0 % (0-2) Band Neutrophils 1 % (0-8) Platelet Estimate Adequate Platelet Morphology Normal Hypochromasia 1+ Sodium Level 140 MMOL/L (136-145) Potassium Level 4.6 MMOL/L (3.5-5.1) Chloride Level 105 MMOL/L (98-107) Carbon Dioxide Level 24 MMOL/L (21-32) Anion Gap 11 mmol/L (5-15) Blood Urea Nitrogen 43 mg/dL (7-18) Creatinine 6.1 MG/DL (0.55-1.30) Estimat Glomerular Filtration Rate mL/min (>60) Glucose Level 193 MG/DL (74-106) Calcium Level 8.8 MG/DL (8.5-10.1) Total Bilirubin 0.4 MG/DL (0.2-1.0) Aspartate Amino Transf (AST/SGOT) 28 U/L (15-37) Alanine Aminotransferase (ALT/SGPT) 11 U/L (12-78) Alkaline Phosphatase 90 U/L (46-116) Total Protein 7.7 G/DL (6.4-8.2) Albumin 2.3 G/DL (3.4-5.0) Globulin 5.4 g/dL Albumin/Globulin Ratio 0.4 (1.0-2.7) EKG Diagnostic Results EKG Time: 11:27 Rate: bradycardiac ST Segments: no acute changes Other Impression Sinus bradycardia rate 55 bpm nl aixs no ST elevation, nonspecific T wave pattern Last Vital Signs Date Time Temp Pulse Resp B/P (MAP) Pulse Ox O2 Delivery O2 Flow Rate FiO2 02/16/18 11:16 97.9 72 18 104/44 95 Room Air Status: unchanged Disposition: PLACE IN OBSERVATION Condition: Stable Referrals: NOT CHOSEN IPA/,REFERRING (PCP) Anita Crane MD Feb 16, 2018 14:00
[2018-02-16 16:00] VITALS: BP 115/46
[2018-02-16 20:00] VITALS: BP 111/59
[2018-02-16] MEDS: Iron Sucrose 100 MG in NS 55 ML IV SCH (20:49)
[2018-02-16] MEDS: levETIRAcetam 500mg/5ml Liquid ORAL SCH (20:51)
[2018-02-16] MEDS: Labetalol 200mg tab ORAL SCH (20:52)
[2018-02-16] MEDS: Tamsulosin 0.4mg cap ORAL SCH (20:52)
[2018-02-16] MEDS: Heparin 5000 units/ml inj SUBQ SCH (20:54)
[2018-02-16] MEDS: Minoxidil 2.5mg tab ORAL SCH (21:00)
[2018-02-16] MEDS ORDERED: Epogen (for ESRD on dialysis) SUBQ SCH (21:00)
[2018-02-17] VITALS: BP 120/61
[2018-02-17] MEDS: HydrALAZINE 25mg tab ORAL SCH ×4 (00:25→17:22)
[2018-02-17 04:00] VITALS: BP 119/82
[2018-02-17] MEDS: Depakote ER 250mg tab ORAL SCH ×3 (06:54→21:12)
[2018-02-17] MEDS: Levothyroxine 125mcg tab ORAL SCH (06:54)
[2018-02-17 08:00] VITALS: BP 115/43
[2018-02-17] MEDS: Minoxidil 2.5mg tab ORAL SCH ×2 (09:00→21:11)
[2018-02-17] MEDS: Labetalol 200mg tab ORAL SCH ×2 (09:00→21:11)
[2018-02-17] MEDS: levETIRAcetam 500mg/5ml Liquid ORAL SCH ×2 (09:23→21:09)
[2018-02-17] MEDS: Heparin 5000 units/ml inj SUBQ SCH ×2 (09:24→21:05)
[2018-02-17 12:00] VITALS: BP 126/52
--- NOTE | 2018-02-17 14:00 | History and Physical Report ---
DATE OF ADMISSION: 02/16/2018 CHIEF COMPLAINT: Low hemoglobin. HISTORY OF PRESENT ILLNESS: This is an 83-year-old male, who is on dialysis every Monday, Monday, Monday. The dialysis unit called me about hemoglobin of 6.9. I called the patient's primary care physician Dr. Madelin Valentino. The patient needed transfusion on dialysis. The patient is admitted for this purpose. The patient had open reduction and internal fixation of his left hip last week in another hospital. This is apparently the reason for his current severe anemia. PAST MEDICAL HISTORY: 1. End-stage renal failure on dialysis. 2. Status post recent open reduction and internal fixation of left hip secondary to fracture. 3. Organic brain syndrome. 4. Status post gastrostomy. 5. Anemia of chronic kidney disease. 6. Benign prostatic hypertrophy. 7. Type 2 diabetes mellitus. 8. Seizure disorder. 9. History of non-STEMI. 10. Hypothyroidism. MEDICATIONS: Amlodipine, Depakote, Procrit on dialysis, subcutaneous heparin, hydralazine, labetalol, Keppra, Synthroid, minoxidil, Protonix, Flomax, and baby aspirin. ALLERGIES: No known drug allergies. FAMILY HISTORY: Unable to obtain. The patient is very confused. SOCIAL HISTORY: Unable to obtain. The patient is very confused. REVIEW OF SYSTEMS: Unable to obtain. The patient is very confused. PHYSICAL EXAMINATION: GENERAL: This is an elderly male, who is in no acute distress. VITAL SIGNS: Blood pressure 115/43, pulse 65 and regular, respirations 20, and temperature 97.1. HEENT: The head is normocephalic and atraumatic. Pupils are equal, round, and reactive to light and accommodation consensually. NECK: Supple. Trachea midline. There was no lymphadenopathy or thyromegaly. LUNGS: Clear to auscultation and percussion. HEART: Regular rate and rhythm without rubs, murmurs, or gallops. ABDOMEN: Soft and nontender. Bowel sounds were active. EXTREMITIES: No clubbing, cyanosis, or edema. He has left upper arm AV fistula. NEUROLOGICAL: He is confused. There were no gross focal findings. LABORATORY AND ANCILLARY DATA: CBC shows hematocrit 23.4, hemoglobin 7.3. Serum chemistry, BUN 43, creatinine 6.1, electrolytes within normal limits. ASSESSMENT: 1. Severe anemia with recently worsening due to recent orthopedic surgery. 2. End-stage renal failure on dialysis. 3. Status post recent open reduction and internal fixation of left hip secondary to fracture. 4. Organic brain syndrome. 5. Status post gastrostomy. 6. Anemia of chronic kidney disease. 7. Benign prostatic hypertrophy. 8. Type 2 diabetes mellitus. 9. Seizure disorder. 10. History of non-STEMI. 11. Hypothyroidism. PLAN: 1. The patient is receiving hemodialysis now with transfusion. 2. Check another set of CBC tomorrow. If stable, discharge back to his longterm. Edda Chavez M.D. DR: SILVANA JOB#: [id number] CC:
[2018-02-17 15:59] VITALS: BP 120/54
[2018-02-17] MEDS ORDERED: Heparin Sod 1000 units/ml 10ml IV SCH (18:00)
[2018-02-17 20:00] VITALS: BP 131/55
[2018-02-17] MEDS: Tamsulosin 0.4mg cap ORAL SCH (21:08)
[2018-02-17] MEDS: Iron Sucrose 100 MG in NS 55 ML IV SCH (21:09)
[2018-02-18] VITALS (7 sets, daily range): BP systolic 111–133; BP diastolic 44–86
[2018-02-18] MEDS: HydrALAZINE 25mg tab ORAL SCH ×4 (00:05→17:28)
[2018-02-18] MEDS: Levothyroxine 125mcg tab ORAL SCH (06:21)
[2018-02-18] MEDS: Depakote ER 250mg tab ORAL SCH ×3 (06:22→21:22)
[2018-02-18 07:41] LABS: BASOPHILS % (AUTO) 0.6 % (0.0-2.0); EOSINOPHILS % (AUTO) 17.7 % (0.0-3.0); HEMATOCRIT 26.8 % (42.0-52.0); HEMOGLOBIN 8.5 G/DL (14.2-18.0); LYMPHOCYTES % (AUTO) 15.8 % (20.0-45.0); MEAN CORPUSCULAR VOLUME 84 FL (80-99); MONOCYTES % (AUTO) 10.4 % (1.0-10.0); NEUTROPHILS % (AUTO) 55.6 % (45.0-75.0); PLATELET COUNT 198 K/UL (150-450); RED BLOOD COUNT 3.19 M/UL (4.70-6.10); RED CELL DISTRIBUTION WIDTH 13.3 % (11.6-14.8); WHITE BLOOD COUNT 8.1 K/UL (4.8-10.8)
[2018-02-18 07:49] LABS: ANION GAP 9 mmol/L (5-15); BLOOD UREA NITROGEN 31 mg/dL (7-18); CALCIUM 8.8 MG/DL (8.5-10.1); CARBON DIOXIDE 27 MMOL/L (21-32); CHLORIDE 103 MMOL/L (98-107); CREATININE 5.7 MG/DL (0.55-1.30); POTASSIUM 4.1 MMOL/L (3.5-5.1); SODIUM 139 MMOL/L (136-145)
[2018-02-18] MEDS: Labetalol 200mg tab ORAL SCH ×2 (08:16→21:26)
[2018-02-18] MEDS: levETIRAcetam 500mg/5ml Liquid ORAL SCH ×2 (08:16→21:25)
[2018-02-18] MEDS: Minoxidil 2.5mg tab ORAL SCH ×2 (08:17→21:26)
[2018-02-18] MEDS: Heparin 5000 units/ml inj SUBQ SCH ×2 (08:17→21:22)
[2018-02-18] MEDS ORDERED: NS 275ml ONE (08:42)
[2018-02-18] MEDS ORDERED: Tubing IV Secondary IV ONE (08:42)
--- NOTE | 2018-02-18 09:51 | Nephrology Progress Note ---
Assessment/Plan Plan Had HD yesterday + 1 unit PRBCs transfused. Hct today 26.8. DC to [facility] Subjective Subjective No new c/o Objective Objective Last 24 Hour Vital Signs Date Time Temp Pulse Resp B/P (MAP) Pulse Ox O2 Delivery O2 Flow Rate FiO2 02/18/18 08:17 125/46 02/18/18 08:16 70 125/46 02/18/18 08:16 70 125/46 02/18/18 07:53 98.8 70 20 125/46 (72) 95 02/18/18 06:21 119/55 02/18/18 04:00 63 02/18/18 04:00 98.4 63 18 130/50 (76) 93 02/18/18 00:05 120/55 02/18/18 00:00 63 02/18/18 00:00 98.3 61 18 120/50 (73) 95 02/17/18 21:11 132/60 02/17/18 21:11 65 132/60 02/17/18 21:00 Room Air 02/17/18 20:00 97.9 67 18 131/55 (80) 98 02/17/18 20:00 67 02/17/18 17:25 70 120/54 02/17/18 17:22 120/54 02/17/18 16:00 67 02/17/18 15:59 97.8 70 20 120/54 (76) 98 02/17/18 12:00 126/52 02/17/18 12:00 98.4 58 20 126/52 (76) 97 02/17/18 11:48 60 Intake and Output 02/17/18 02/18/18 19:00 07:00 Intake Total 420 ml 60 ml Output Total 2000 ml Balance -1580 ml 60 ml Intake Oral 420 ml IV Total 60 ml Hemodialysis UF 2000 ml # Voids 3 Laboratory Tests 02/18/18 06:55: White Blood Count 8.1, Red Blood Count 3.19L, Hemoglobin 8.5L, Hematocrit 26.8L , Mean Corpuscular Volume 84, Mean Corpuscular Hemoglobin 26.7L, Mean Corpuscular Hemoglobin Concent 31.8L, Red Cell Distribution Width 13.3, Platelet Count 198, Mean Platelet Volume 7.1, Neutrophils (%) (Auto) 55.6, Lymphocytes (%) (Auto) 15.8L, Monocytes (%) (Auto) 10.4H, Eosinophils (%) (Auto ) 17.7H, Basophils (%) (Auto) 0.6, Sodium Level 139, Potassium Level 4.1, Chloride Level 103, Carbon Dioxide Level 27, Anion Gap 9, Blood Urea Nitrogen 31H, Creatinine 5.7H, Estimat Glomerular Filtration Rate , Glucose Level 134H, Calcium Level 8.8 Height (Feet): 5 Height (Inches): 8.00 Weight (Pounds): 168 Objective Confused. CV RR Lungs CTA Abd SNT. BS + E No CCE. HAYDER SAGE. Edda Chavez MD Feb 18, 2018 09:51
[2018-02-18] MEDS: Iron Sucrose 100 MG in NS 55 ML IV SCH (21:21)
[2018-02-18] MEDS: Tamsulosin 0.4mg cap ORAL SCH (21:25)
--- NOTE | 2018-02-18 22:46 | Consultation ---
History of Present Illness General Chief Complaint: Abnormal Labs Present Illness HPI 83-year-old male, with hx of dementia with behavioral dist who is my pt at [facility] was admitted for medical stabilization. the pt is confused and unable to provide hx. the pt has memory impairment the pt is more confused than baseline. Allergies: Coded Allergies: No Known Allergies (Unverified , 05/30/17) Medication History Scheduled Amlodipine Besylate* (Amlodipine Besylate*), 5 MG PO BID, (Reported) Aspirin* (Aspir 81*), 81 MG ORAL DAILY, (Reported) Divalproex Sodium* (Depakote Er*), 250 MG ORAL TID, (Reported) Hydralazine Hcl* (Hydralazine Hcl*), 25 MG PO QID, (Reported) Labetalol Hcl* (Normodyne*), 400 MG PO EVERY 12 HOURS, (Reported) Levetiracetam* (Levetiracetam*), 500 MG PO BID, (Reported) Levothyroxine Sodium* (Levothyroxine Sodium*), 125 MCG PO DAILY, (Reported) Minoxidil* (Loniten*), 5 MG PO DAILY, (Reported) Tamsulosin Hcl (Tamsulosin Hcl*), 0.4 MG PO BEDTIME, (Reported) Vitamin B Cmplx/Vit C/Folic AC (Nephro-Kecia Tablet), 1 TAB PO DAILY, (Reported) Patient History Limited by: medical condition History Provided By: Medical Record, PMD Healthcare decision maker Resuscitation status Full Code Advanced Directive on File Past Medical/Surgical History Past Medical/Surgical History: (1) Arthritis (2) Hypothyroidism (3) Chronic pancreatitis (4) ESRD (end stage renal disease) (5) HTN (hypertension) (6) Colonoscopy planned (7) Constipation (8) Dementia (9) GERD (gastroesophageal reflux disease) (10) PEG (percutaneous endoscopic gastrostomy) adjustment/replacement/removal (11) Anemia Review of Systems Psychiatric: Reports: prior hx, anxiety, depressed feelings, emotional problems Physical Exam General Appearance: alert, confused Last 24 Hour Vital Signs Date Time Temp Pulse Resp B/P (MAP) Pulse Ox O2 Delivery O2 Flow Rate FiO2 02/18/18 21:26 132/53 02/18/18 21:26 71 132/53 02/18/18 21:00 98.4 67 20 133/46 (75) 96 02/18/18 21:00 Room Air 02/18/18 20:00 67 02/18/18 17:28 115/49 02/18/18 17:28 59 115/49 02/18/18 16:00 97.9 59 18 115/49 (71) 96 02/18/18 15:44 61 02/18/18 12:00 111/44 02/18/18 12:00 98.6 20 20 111/44 (66) 94 02/18/18 11:52 66 02/18/18 08:17 125/46 02/18/18 08:16 70 125/46 02/18/18 08:16 70 125/46 02/18/18 08:00 Room Air 02/18/18 07:53 98.8 70 20 125/46 (72) 95 02/18/18 07:49 68 02/18/18 06:21 119/55 02/18/18 04:00 63 02/18/18 04:00 98.4 63 18 130/50 (76) 93 02/18/18 00:05 120/55 02/18/18 00:00 63 02/18/18 00:00 98.3 61 18 120/50 (73) 95 Intake and Output 02/17/18 02/18/18 19:00 07:00 Intake Total 420 ml 60 ml Output Total 2000 ml Balance -1580 ml 60 ml Intake Oral 420 ml IV Total 60 ml Hemodialysis UF 2000 ml # Voids 3 Laboratory Tests Test 02/18/18 06:55 White Blood Count 8.1 K/UL (4.8-10.8) Red Blood Count 3.19 M/UL (4.70-6.10) L Hemoglobin 8.5 G/DL (14.2-18.0) L Hematocrit 26.8 % (42.0-52.0) L Mean Corpuscular Volume 84 FL (80-99) Mean Corpuscular Hemoglobin 26.7 PG (27.0-31.0) L Mean Corpuscular Hemoglobin Concent 31.8 G/DL (32.0-36.0) L Red Cell Distribution Width 13.3 % (11.6-14.8) Platelet Count 198 K/UL (150-450) Mean Platelet Volume 7.1 FL (6.5-10.1) Neutrophils (%) (Auto) 55.6 % (45.0-75.0) Lymphocytes (%) (Auto) 15.8 % (20.0-45.0) L Monocytes (%) (Auto) 10.4 % (1.0-10.0) H Eosinophils (%) (Auto) 17.7 % (0.0-3.0) H Basophils (%) (Auto) 0.6 % (0.0-2.0) Sodium Level 139 MMOL/L (136-145) Potassium Level 4.1 MMOL/L (3.5-5.1) Chloride Level 103 MMOL/L (98-107) Carbon Dioxide Level 27 MMOL/L (21-32) Anion Gap 9 mmol/L (5-15) Blood Urea Nitrogen 31 mg/dL (7-18) H Creatinine 5.7 MG/DL (0.55-1.30) H Estimat Glomerular Filtration Rate mL/min (>60) Glucose Level 134 MG/DL (74-106) H Calcium Level 8.8 MG/DL (8.5-10.1) Height (Feet): 5 Height (Inches): 8.00 Weight (Pounds): 168 Medications Current Medications Medications (Trade) Dose Ordered Sig/Yamilka Route PRN Reason Start Time Stop Time Status Last Admin Dose Admin Amlodipine Besylate (Norvasc) 5 mg BID ORAL 02/17/18 09:00 03/19/18 08:59 02/18/18 08:16 Divalproex Sodium (Depakote ER) 250 mg Q8HR ORAL 02/17/18 06:00 03/19/18 05:59 02/18/18 21:22 Epoetin Chris (Procrit (for ESRD on dialysis)) 10,000 units MON-MON-MON SUBQ 02/16/18 21:00 03/18/18 20:59 02/16/18 20:51 Heparin Sodium (Porcine) (Heparin 5000 units/ml) 5,000 units EVERY 12 HOURS SUBQ 02/16/18 21:00 03/18/18 20:59 02/18/18 21:22 Heparin Sodium (Porcine) (Heparin Sod 1000 units/ml 10ml) 2,000 unit ONCE IV 02/19/18 06:00 02/19/18 18:00 Hydralazine HCl (Apresoline) 25 mg Q6HR ORAL 02/17/18 00:00 03/19/18 00:00 02/18/18 06:21 Iron Sucrose 100 mg/Sodium Chloride 60 ml @ 240 mls/hr BEDTIME IV 02/16/18 21:00 02/20/18 21:14 02/18/18 21:21 Labetalol HCl (Normodyne) 400 mg EVERY 12 HOURS ORAL 02/16/18 21:00 03/18/18 20:59 02/18/18 21:26 Levetiracetam (Keppra) 500 mg Q12HR ORAL 02/16/18 21:00 03/18/18 20:59 02/18/18 21:25 Levothyroxine Sodium (Synthroid) 125 mcg ACBREAKFAST ORAL 02/17/18 06:30 03/19/18 06:29 02/18/18 06:21 Minoxidil (Loniten) 5 mg Q12HR ORAL 02/16/18 21:00 03/18/18 20:59 02/18/18 21:26 Pantoprazole (Protonix) 40 mg DAILY ORAL 02/17/18 09:00 03/19/18 08:59 02/18/18 08:16 Sodium Chloride 1,000 ml @ 500 mls/hr Q2H PRN IVLG sbp<90 during hd 02/19/18 06:00 02/19/18 18:00 Tamsulosin HCl (Flomax) 0.4 mg BEDTIME ORAL 02/16/18 21:00 03/18/18 20:59 02/18/18 21:25 Assessment/Plan Problem List: (1) Dementia ICD Codes: F03.90 - Unspecified dementia without behavioral disturbance SNOMED: 86287129 Assessment/Plan encephalopathy due to toxin depakote 250mg tid provided ro/Pravin Knapp MD Feb 18, 2018 22:45
[2018-02-19] VITALS: BP 126/88
[2018-02-19] MEDS: HydrALAZINE 25mg tab ORAL SCH ×3 (00:15→12:00)
[2018-02-19 04:00] VITALS: BP 118/88
[2018-02-19] MEDS ORDERED: Heparin Sod 1000 units/ml 10ml IV SCH (06:00)
[2018-02-19] MEDS: Depakote ER 250mg tab ORAL SCH ×2 (06:06→15:05)
[2018-02-19] MEDS ORDERED: Levothyroxine 125mcg tab ORAL SCH (06:30)
[2018-02-19 06:33] LABS: BASOPHILS % (AUTO) 0.7 % (0.0-2.0); EOSINOPHILS % (AUTO) 16.5 % (0.0-3.0); HEMATOCRIT 27.5 % (42.0-52.0); HEMOGLOBIN 8.7 G/DL (14.2-18.0); LYMPHOCYTES % (AUTO) 17.6 % (20.0-45.0); MEAN CORPUSCULAR VOLUME 85 FL (80-99); MONOCYTES % (AUTO) 9.9 % (1.0-10.0); NEUTROPHILS % (AUTO) 55.4 % (45.0-75.0); PLATELET COUNT 204 K/UL (150-450); RED BLOOD COUNT 3.26 M/UL (4.70-6.10); RED CELL DISTRIBUTION WIDTH 13.3 % (11.6-14.8); WHITE BLOOD COUNT 7.5 K/UL (4.8-10.8)
[2018-02-19 06:53] LABS: ANION GAP 11 mmol/L (5-15); BLOOD UREA NITROGEN 39 mg/dL (7-18); CALCIUM 8.9 MG/DL (8.5-10.1); CARBON DIOXIDE 25 MMOL/L (21-32); CHLORIDE 104 MMOL/L (98-107); CREATININE 6.6 MG/DL (0.55-1.30); PHOSPHORUS 4.6 MG/DL (2.5-4.9); POTASSIUM 4.2 MMOL/L (3.5-5.1); SODIUM 140 MMOL/L (136-145)
[2018-02-19 08:00] VITALS: BP 128/46
[2018-02-19] MEDS ORDERED: Heparin Sod 1000 units/ml 10ml IV ONE (08:00)
--- NOTE | 2018-02-19 08:04 | Nephrology Progress Note ---
Assessment/Plan Plan Had HD yesterday + 1 unit PRBCs transfused. Hct today 26.8. DC to [facility] DC held due to SNF inabilty to accept patient. Awaiting HD. HCt 27.5 Subjective Subjective No new c/o Objective Objective Last 24 Hour Vital Signs Date Time Temp Pulse Resp B/P (MAP) Pulse Ox O2 Delivery O2 Flow Rate FiO2 02/19/18 06:00 118/88 02/19/18 04:00 98.9 71 18 118/88 (98) 99 02/19/18 00:15 126/88 02/19/18 00:00 98.4 65 18 126/88 (101) 100 02/18/18 22:55 98.4 62 20 124/86 (99) 100 02/18/18 21:26 132/53 02/18/18 21:26 71 132/53 02/18/18 21:00 98.4 67 20 133/46 (75) 96 02/18/18 21:00 Room Air 02/18/18 20:00 67 02/18/18 17:28 115/49 02/18/18 17:28 59 115/49 02/18/18 16:00 97.9 59 18 115/49 (71) 96 02/18/18 15:44 61 02/18/18 12:00 111/44 02/18/18 12:00 98.6 20 20 111/44 (66) 94 02/18/18 11:52 66 02/18/18 08:17 125/46 02/18/18 08:16 70 125/46 02/18/18 08:16 70 125/46 Intake and Output 02/18/18 02/19/18 19:00 07:00 Intake Total 195 ml 50 ml Balance 195 ml 50 ml Intake Oral 195 ml 50 ml # Voids 1 # Bowel Movements 2 Laboratory Tests 02/19/18 05:30: White Blood Count 7.5, Red Blood Count 3.26L, Hemoglobin 8.7L, Hematocrit 27.5L , Mean Corpuscular Volume 85, Mean Corpuscular Hemoglobin 26.7L, Mean Corpuscular Hemoglobin Concent 31.6L, Red Cell Distribution Width 13.3, Platelet Count 204, Mean Platelet Volume 7.0, Neutrophils (%) (Auto) 55.4, Lymphocytes (%) (Auto) 17.6L, Monocytes (%) (Auto) 9.9, Eosinophils (%) (Auto) 16.5H, Basophils (%) (Auto) 0.7, Sodium Level 140, Potassium Level 4.2, Chloride Level 104, Carbon Dioxide Level 25, Anion Gap 11, Blood Urea Nitrogen 39H, Creatinine 6.6H, Estimat Glomerular Filtration Rate , Glucose Level 129H, Calcium Level 8.9, Phosphorus Level 4.6 Height (Feet): 5 Height (Inches): 8.00 Weight (Pounds): 167 Objective Confused. CV RR Lungs CTA Abd SNT. BS + E No CCE. HAYDER SAGE. Edda Chavez MD Feb 19, 2018 08:04
[2018-02-19] MEDS ORDERED: Labetalol 200mg tab ORAL SCH (09:00)
[2018-02-19] MEDS ORDERED: Minoxidil 2.5mg tab ORAL SCH (09:00)
[2018-02-19] MEDS ORDERED: levETIRAcetam 500mg/5ml Liquid ORAL SCH (09:00)
[2018-02-19] MEDS ORDERED: Heparin 5000 units/ml inj SUBQ SCH (09:00)
[2018-02-19 12:00] VITALS: BP 129/55
--- NOTE | 2018-02-19 14:15 | General Progress Note ---
Assessment/Plan Problem List: (1) Dementia ICD Codes: F03.90 - Unspecified dementia without behavioral disturbance SNOMED: 92392043 Assessment/Plan encephalopathy cont depakote provided ro/st Subjective Neurologic/Psychiatric: Reports: anxiety, depressed Allergies: Coded Allergies: No Known Allergies (Unverified , 05/30/17) Objective Last 24 Hour Vital Signs Date Time Temp Pulse Resp B/P (MAP) Pulse Ox O2 Delivery O2 Flow Rate FiO2 02/19/18 12:00 97.8 63 18 129/55 (79) 97 02/19/18 12:00 128/46 02/19/18 09:00 Room Air 02/19/18 09:00 128/46 02/19/18 09:00 72 128/46 02/19/18 09:00 72 128/46 02/19/18 08:00 97.8 72 18 128/46 (73) 98 02/19/18 06:00 118/88 02/19/18 04:00 98.9 71 18 118/88 (98) 99 02/19/18 00:15 126/88 02/19/18 00:00 98.4 65 18 126/88 (101) 100 02/18/18 22:55 98.4 62 20 124/86 (99) 100 02/18/18 21:26 132/53 02/18/18 21:26 71 132/53 02/18/18 21:00 98.4 67 20 133/46 (75) 96 02/18/18 21:00 Room Air 02/18/18 20:00 67 02/18/18 17:28 115/49 02/18/18 17:28 59 115/49 02/18/18 16:00 97.9 59 18 115/49 (71) 96 02/18/18 15:44 61 Intake and Output 02/18/18 02/19/18 19:00 07:00 Intake Total 195 ml 50 ml Balance 195 ml 50 ml Intake Oral 195 ml 50 ml # Voids 1 # Bowel Movements 2 Laboratory Tests 02/19/18 05:30: White Blood Count 7.5, Red Blood Count 3.26L, Hemoglobin 8.7L, Hematocrit 27.5L , Mean Corpuscular Volume 85, Mean Corpuscular Hemoglobin 26.7L, Mean Corpuscular Hemoglobin Concent 31.6L, Red Cell Distribution Width 13.3, Platelet Count 204, Mean Platelet Volume 7.0, Neutrophils (%) (Auto) 55.4, Lymphocytes (%) (Auto) 17.6L, Monocytes (%) (Auto) 9.9, Eosinophils (%) (Auto) 16.5H, Basophils (%) (Auto) 0.7, Sodium Level 140, Potassium Level 4.2, Chloride Level 104, Carbon Dioxide Level 25, Anion Gap 11, Blood Urea Nitrogen 39H, Creatinine 6.6H, Estimat Glomerular Filtration Rate , Glucose Level 129H, Calcium Level 8.9, Phosphorus Level 4.6 Height (Feet): 5 Height (Inches): 8.00 Weight (Pounds): 167 General Appearance: no apparent distress, alert, confused Pravin Humphries MD Feb 19, 2018 14:15
[2018-02-19] MEDS ORDERED: D5 1/2NS 1000ml IV ONE (15:28)
[2018-02-19] MEDS ORDERED: Iron Sucrose 100 MG in NS 55 ML IV SCH (21:00)
[2018-02-19] MEDS ORDERED: Tamsulosin 0.4mg cap ORAL SCH (21:00)
[2018-02-19] MEDS ORDERED: Epogen (for ESRD on dialysis) SUBQ SCH (21:00)
--- NOTE | 2018-02-20 11:59 | Discharge Summary ---
Discharge Summary Discharge Summary _ DATE OF ADMISSION: 02/16/2018 DATE OF DISCHARGE: 02/19/2018 REASON FOR ADMISSION: 83 years old male with past medical history of end-stage renal failure, on hemodialysis, organic brain syndrome, anemia of chronic kidney disease, benign prostatic hypertrophy, type 2 diabetes mellitus, seizure disorder, history of non-STEMI, hypothyroidism, status post recent open reduction internal fixation left hip secondary to fracture ,status post gastrostomy, presented with evidence of anemia. At outpatient hemodialysis unit hemoglobin was 6.9. Patient required transfusion on dialysis and subsequently was transferred to [facility] ED for transfusion. Laboratory workup revealed hemoglobin 7.3 ,hematocrit 23.4 with MCV of 84. BUN 43 ,creatinine 6.1, consistent with known history of end-stage renal disease. Patient admitted with diagnoses of severe anemia, recently worsened due to orthopedic surgery, end-stage renal disease on hemodialysis,anemia of chronic kidney disease, status post recent open reduction internal fixation of left hip secondary to fracture, history of non-STEMI, hypothyroidism, organic brain syndrome, status post gastrostomy , benign prostatic hypertrophy , type 2 diabetes mellitus, seizure disorder, CONSULTANTS: psychiatrist HOSPITAL COURSE: Patient admitted to medical surgical floor. Hemodialysis was arranged. Patient received blood transfusion with hemodialysis Patient undergone transfusion of total of 2 units of packed red blood cells. Prior to discharge hemoglobin 8.7 hematocrit 27.5. Patient was on Epogen 10,000 units 3 times week. Patient was given IV Venofer. Blood pressure was managed with multiple regimen of antihypertensive, including calcium channel franny , beta-franny , Hydralazine and Minoxidil . Flomax continued. DVT and GI prophylaxis provided. Seizure precaution maintained. Keppra and Depakote continued. Levothyroxine continued Blood sugar was monitored and remained stable. Patient stabilized and [facility] FINAL DIAGNOSES: Severe anemia ,recently worsened due to recent orthopedic surgery End-stage renal failure, on hemodialysis Anemia of chronic kidney disease Status post recent open reduction internal fixation of left hip secondary to hip fracture Type 2 diabetes mellitus Benign prostatic hypertrophy Seizure disorder History of NSTEMI Hypothyroidism Organic brain syndrome Status post gastrostomy DISCHARGE MEDICATIONS: See Medication Reconciliation list. DISCHARGE INSTRUCTIONS: [facility]. Follow up with medical doctor at the facility. Follow-up with outpatient hemodialysis as scheduled. I have been assigned to dictate discharge summary for this account. I was not involved in the patient's management. Mar Yin NP Feb 20, 2018 11:59
== END 2018-02-19 15:29 | DRG 811 ==
LOC: EDBD 11:08 → EDUNIT# 11:08 → EMR 12:02 → 2E 12:04 → EDBEDREQ 12:45 → 4E 02-18 22:47
PROC: 30233N1 Transfusion of Nonautologous Red Blood Cells into Peripheral Vein, Percutaneous Approach (ICD-10-PCS; principal; 2018-02-16)
PROC: 5A1D70Z Performance of Urinary Filtration, Intermittent, Less than 6 Hours Per Day (ICD-10-PCS; 2018-02-19)
DX: D50.0 Iron deficiency anemia secondary to blood loss (chronic) (principal); N18.6 End stage renal disease; I12.0 Hypertensive chronic kidney disease with stage 5 chronic kidney disease or end stage renal disease; D63.1 Anemia in chronic kidney disease; S72.002D Fracture of unspecified part of neck of left femur, subsequent encounter for closed fracture with routine healing; X58.XXXD Exposure to other specified factors, subsequent encounter; F03.90 Unspecified dementia, unspecified severity, without behavioral disturbance, psychotic disturbance, mood disturbance, and anxiety; F09 Unspecified mental disorder due to known physiological condition; N40.0 Benign prostatic hyperplasia without lower urinary tract symptoms; G40.909 Epilepsy, unspecified, not intractable, without status epilepticus; I25.2 Old myocardial infarction; E03.9 Hypothyroidism, unspecified; Z79.82 Long term (current) use of aspirin; M19.90 Unspecified osteoarthritis, unspecified site; K21.9 Gastro-esophageal reflux disease without esophagitis; E11.22 Type 2 diabetes mellitus with diabetic chronic kidney disease; Z99.2 Dependence on renal dialysis
CPT/HCPCS: 36415; 80048; 80053; 84100; 85007; 85025; 86850; 86900; 86901; 86920; 87081; 93005; 99285

== ENCOUNTER 2018-04-04 15:37 | Inpatient (IN) | payer MEDICARE, OTHER ==
[~2018-04-04] VITALS: Ht 172.7 cm; Wt 69.4 kg
[2018-04-04 15:50] VITALS: BP 122/62
--- NOTE | 2018-04-04 15:50 | NUR ---
ED Nurse Note: Pt RAYSHAWN from dialysis center for G-tube placement and failure to thrive. Pt AAO x1 and refusing chaning to gown and being connected to monitor. Will try again.
--- NOTE | 2018-04-04 16:00 | NUR ---
ED Nurse Note: Convinced patient and pt agreed to change to gown and being connected to monitor. Pressure ulcer noted on both heels and skin dark and very dry. Shunt present on Lt upper arm covered by dressing. Denied pain or other discomfort. Calm and cooperative in bed.
--- NOTE | 2018-04-04 16:38 | Emergency Room Report ---
History of Present Illness General Chief Complaint: General Complaint Source: Medical Record Present Illness HPI Patient is an 83-year-old male sent in by facility for generalized weakness and failure to thrive. Patient had prior history of end-stage renal disease. Patient is currently on dialysis. He was noted to have decreased oral intake.He reportedly had been dialyzed earlier in the day. Allergies: Coded Allergies: No Known Allergies (Unverified , 05/30/17) Patient History Past Medical History: see triage record Reviewed Nursing Documentation: PMH: Agreed; PSxH: Agreed Nursing Documentation-PMH Past Medical History: No History, Except For Hx Cardiac Problems: Yes - hypothyroism, anemia, HF Hx Hypertension: Yes Hx COPD: Yes Hx Diabetes: Yes - type II Hx Cancer: No Hx Gastrointestinal Problems: Yes - dysphagia, g-tube, GERD Hx Dialysis: Yes - T TH S Hx Neurological Problems: Yes - s/p left hip fx on 01/28, muscle weakness Hx Cerebrovascular Accident: Yes Hx Transient Ischemic Attacks: Yes Hx Dementia: Yes Hx Seizures: Yes Review of Systems All Other Systems: negative except mentioned in HPI Physical Exam Vital Signs Date Time Temp Pulse Resp B/P (MAP) Pulse Ox O2 Delivery O2 Flow Rate FiO2 04/04/18 15:38 98.4 70 18 122/62 98 Room Air Sp02 EP Interpretation: reviewed, normal General Appearance: normal inspection, alert, Chronically Ill Head: atraumatic ENT: normal ENT inspection, hearing grossly normal, normal voice Neck: normal inspection, full range of motion, supple, no bony tend Respiratory: normal inspection, lungs clear, normal breath sounds, no respiratory distress, no retraction, no wheezing Cardiovascular #1: regular rate, rhythm, no edema Gastrointestinal: normal inspection, normal bowel sounds, non tender, soft, no guarding, no hernia Genitourinary: no CVA tenderness Musculoskeletal: normal inspection, back normal, normal range of motion Neurologic: normal inspection, alert, responsive, speech normal Psychiatric: normal inspection, judgement/insight normal, mood/affect normal Skin: normal inspection, normal color, no rash Medical Decision Making Diagnostic Impression: Primary Impression: Weakness Additional Impressions: ESRD (end stage renal disease) Dehydration ER Course Patient presented for generalized weakness. Differential diagnosis included was not limited to anemia, urinary tract infection, electrolyte abnormality, hypothyroidism, myocardial infarction, myasthenia gravis, dehydration, among others. Because of complexity of patient's case laboratory testing and imaging studies were ordered. Patient is noted to be poor historian due to dementia. He appears to be generalized weak. Per [facility]ent[facility] staff patient has had decreased oral intake. Patient be admitted for further evaluation and treatment. Dr. Kamara was contacted for inpatient management due to covering physician. Labs Test 04/04/18 17:28 White Blood Count 5.6 K/UL (4.8-10.8) Red Blood Count 5.90 M/UL (4.70-6.10) Hemoglobin 15.9 G/DL (14.2-18.0) Hematocrit 54.3 % (42.0-52.0) Mean Corpuscular Volume 92 FL (80-99) Mean Corpuscular Hemoglobin 27.0 PG (27.0-31.0) Mean Corpuscular Hemoglobin Concent 29.3 G/DL (32.0-36.0) Red Cell Distribution Width 20.0 % (11.6-14.8) Platelet Count 164 K/UL (150-450) Mean Platelet Volume 7.8 FL (6.5-10.1) Neutrophils (%) (Auto) 59.8 % (45.0-75.0) Lymphocytes (%) (Auto) 14.7 % (20.0-45.0) Monocytes (%) (Auto) 8.5 % (1.0-10.0) Eosinophils (%) (Auto) 15.0 % (0.0-3.0) Basophils (%) (Auto) 2.0 % (0.0-2.0) Prothrombin Time 10.4 SEC (9.30-11.50) Prothromb Time International Ratio 1.0 (0.9-1.1) Activated Partial Thromboplast Time 34 SEC (23-33) Sodium Level 142 MMOL/L (136-145) Potassium Level 4.4 MMOL/L (3.5-5.1) Chloride Level 105 MMOL/L (98-107) Carbon Dioxide Level 30 MMOL/L (21-32) Anion Gap 7 mmol/L (5-15) Blood Urea Nitrogen 11 mg/dL (7-18) Creatinine 3.0 MG/DL (0.55-1.30) Estimat Glomerular Filtration Rate mL/min (>60) Glucose Level 120 MG/DL (74-106) Calcium Level 9.7 MG/DL (8.5-10.1) Total Bilirubin 0.4 MG/DL (0.2-1.0) Aspartate Amino Transf (AST/SGOT) 27 U/L (15-37) Alanine Aminotransferase (ALT/SGPT) 15 U/L (12-78) Alkaline Phosphatase 207 U/L (46-116) Troponin I 0.008 ng/mL (0.000-0.056) Total Protein 9.0 G/DL (6.4-8.2) Albumin 2.8 G/DL (3.4-5.0) Globulin 6.2 g/dL Albumin/Globulin Ratio 0.5 (1.0-2.7) Thyroid Stimulating Hormone (TSH) 5.673 uiU/mL (0.358-3.740) Serum Alcohol < 3 mg/dL EKG Diagnostic Results Rate: normal Rhythm: NSR ST Segments: no acute changes ASA given to the pt in ED: No Last Vital Signs Date Time Temp Pulse Resp B/P (MAP) Pulse Ox O2 Delivery O2 Flow Rate FiO2 04/04/18 15:38 98.4 70 18 122/62 98 Room Air Status: unchanged Disposition: ADMITTED INPATIENT Condition: Stable Shashi Alvarado MD Apr 04, 2018 16:38
[2018-04-04 17:44] LABS: HEMATOCRIT 54.3 % (42.0-52.0); HEMOGLOBIN 15.9 G/DL (14.2-18.0); LYMPHOCYTES % (AUTO) 14.7 % (20.0-45.0); MEAN CORPUSCULAR VOLUME 92 FL (80-99); MONOCYTES % (AUTO) 8.5 % (1.0-10.0); NEUTROPHILS % (AUTO) 59.8 % (45.0-75.0); PLATELET COUNT 164 K/UL (150-450); WHITE BLOOD COUNT 5.6 K/UL (4.8-10.8)
[2018-04-04 17:46] LABS: ANION GAP 7 mmol/L (5-15); BLOOD UREA NITROGEN 11 mg/dL (7-18); CALCIUM 9.7 MG/DL (8.5-10.1); CARBON DIOXIDE 30 MMOL/L (21-32); CHLORIDE 105 MMOL/L (98-107); POTASSIUM 4.4 MMOL/L (3.5-5.1); SODIUM 142 MMOL/L (136-145)
[2018-04-04 17:59] LABS: ALANINE AMINOTRANSFERASE 15 U/L (12-78); ALBUMIN 2.8 G/DL (3.4-5.0); ALBUMIN/GLOBULIN RATIO 0.5 (1.0-2.7); ALKALINE PHOSPHATASE 207 U/L (46-116); ASPARTATE AMINO TRANSFERASE 27 U/L (15-37); BILIRUBIN,TOTAL 0.4 MG/DL (0.2-1.0)
[2018-04-04 18:00] VITALS: BP 151/74
--- NOTE | 2018-04-04 18:49 | NUR ---
ED Nurse Note: Per Dr. Alvarado, no urine needed due to pt is on dialysis. will attempt to give report to transfer pt.
--- NOTE | 2018-04-04 18:56 | NUR ---
ED Nurse Note: Attempted to give report to Telemetry unit. Per charge nurse, admitting nurse, AASHISH Ding will be available in 20 minutes. will endorse to next shift nurse.
--- NOTE | 2018-04-04 19:09 | NUR ---
HAND-OFF: Report given to AASHISH Cespedes. Pt is ready to be transferred and attempting to giving report was not available. aashish Ding will receive report by 7:30pm and it was endorsed.
[2018-04-04] MEDS ORDERED: MIRCERA IJ (19:44)
[2018-04-04] MEDS ORDERED: VITAMIN D1000 UNI1 ORAL (19:44)
--- NOTE | 2018-04-04 19:50 | NUR ---
ED Nurse Note: PT BEING AMDITTED TO FLOOR UNIT, REPORT CALELD TO AASHISH WESLEY TO RESUME CARE, PT IN BED AWAKE AND ALERT, IV SITE INTACT AND PATENT, BELONGINGS LIST COMPLETED, NO S/S OF PAIN OR ANY DISTRESS, PT BEING TAKEN TO FLOOR UNIT BY RN AND ER-TECH VIA SHELBI AND ACLS PROTOCOLS, NAD NOTED DURING PT TRANSPORT TO UNIT.
[2018-04-04 21:00] VITALS: BP 157/64
--- NOTE | 2018-04-04 21:00 | NUR ---
NURSE NOTES: Got report from Rubina ZENDEJAS from ER on phone prior to pt being brought up to unit. Initial assessment done. Pt denies any pain or discomfort. Pt has DTI bilateral heels and had that prior to being brought up here on unit. Pt came in with DTI bilateral heels from [facility]. Pictures of DTI bilateral heels taken in ER. Swabs done (CRE,VRE,MRSA,Wound) when pt came onto unit. V/S: BP:157/64 T:97.5 R:20 O2:100% on room air HR:64. Continue to monitor.
--- NOTE | 2018-04-04 21:00 | NUR ---
NURSE NOTES: Paged for orders. called back right away and gave me orders. Orders placed. Continue to monitor.
[2018-04-04] MEDS: Tamsulosin 0.4mg cap ORAL SCH (23:00)
[2018-04-04] MEDS: HydrALAZINE 25mg tab ORAL SCH (23:00)
[2018-04-05] VITALS: BP 143/50
[2018-04-05 04:00] VITALS: BP 150/54
[2018-04-05] MEDS: Levothyroxine 125mcg tab ORAL SCH (06:00)
--- NOTE | 2018-04-05 07:20 | NUR ---
NURSE NOTES: Received report from Gavin ZENDEJAS. Pt is awake, alert, oriented x1 to name/confused. On room air with no respiratory distress. Denies pain, and displays no signs/symptoms of any pain/discomfort. IV access on right AC #20G, saline lock, patent/intact. AV shunt on left UA for dialysis, last dialysis treatment was on 04/04/18 prior to admission per night/shift report. Side rails padded for seizure precautions, suction set up, oxygen available. Call light is placed is within easy reach, bed in lowest position, two side rails up, brakes engaged, alarm on.
--- NOTE | 2018-04-05 07:35 | NUR ---
HAND-OFF: Report given to Missy ZENDEJAS. endorsed plan of care.
[2018-04-05 08:00] VITALS: BP 131/47
[2018-04-05] MEDS: Minoxidil 2.5mg tab ORAL SCH (08:57)
[2018-04-05] MEDS: Vitamin D 1000 IU Tab ORAL SCH (08:57)
[2018-04-05] MEDS: Aspirin EC 81mg tab ORAL SCH (08:57)
[2018-04-05] MEDS: Depakote ER 250mg tab ORAL SCH ×3 (08:57→17:19)
[2018-04-05] MEDS: HydrALAZINE 25mg tab ORAL SCH ×4 (08:58→20:39)
[2018-04-05] MEDS: Nephrovite tab (Rena-Vite) ORAL SCH ×2 (08:58→17:19)
[2018-04-05] MEDS ORDERED: Vitamin D 1000 IU Tab ORAL SCH (09:00)
[2018-04-05] MEDS: Heparin 5000 units/ml inj SUBQ SCH ×2 (09:02→20:40)
--- NOTE | 2018-04-05 10:39 | NUR ---
RD ASSESSMENT & RECOMMENDATIONS SEE CARE ACTIVITY FOR COMPLETE ASSESSMENT DAILY ESTIMATED NEEDS: Needs based on ESRD ON HD, wound 65kg 30-35 kcals/kg [id number] total kcals 1.25-1.8 g protein/kg 81-117 g total protein Fluid per MD, on HD NUTRITION DIAGNOSIS: Increased kcal and protein needs r/t wound healing and renal dysfunction as evidenced by pt w/ R heel DTI, L heel unstageable wound, w/ ESRD on HD. CURRENT DIET:RENAL/ CCHO MED PO DIET RECOMMENDATIONS: RENAL DIET (texture as tolerated) ADDITIONAL RECOMMENDATIONS: 1) F/up w/ H&P 2) Monitor po intake closely-> FTT per MD 3) Add NEPRO 1 tetra yecenia daily (425 kcal each) 4) Add snacks BID in b/w meals 5) Check A1C / eval of BG 6) Wound care: add CLAUDIA BID ->REC VIT C per Nephrology
--- NOTE | 2018-04-05 11:01 | GI Initial Consult Note ---
History of Present Illness General Date patient seen: Apr 05, 2018 Time patient seen: 10:55 Reason for Hospitalization: General Complaint Referring physician: HILL BROOKS Reason for Consultation: Failure to thrive Present Illness HPI Patient is an 83-year-old male sent in by facility for generalized weakness and failure to thrive. Patient had prior history of end-stage renal disease. Patient is currently on dialysis. He was noted to have decreased oral intake.He reportedly had been dialyzed earlier in the day. GI consulted for PEG evaluation. Initial HPI as noted above. The patient was seen, awake alert and oriented x2-3. No apparent distress. No active signs or symptoms of nausea or vomiting. According to the patient, he states that he is sufficiently eating well. The patient had a history of upper endoscopy and colonoscopy done last year in May 2017. Status post G-tube removal in July 2017. The site healed without any complications and the patient was able to tolerate diet at the time. Patient presents today with reported decreased oral intake. Labs reviewed; no anemia. No leukocytosis. No transaminitis. Home Meds Reported Medications Methoxy Peg-Epoetin Beta (Mircera) 75 Mcg/0.3 Ml Syringe, 75 MCG IJ Q2WKS ON 3RD HD 04/04/18 Cholecalciferol (Vitamin D3)* (VITAMIN D*) 1,000 Unit Tablet, 1000 UNIT ORAL DAILY, TAB 04/04/18 Divalproex Sodium* (DEPAKOTE ER*) 250 Mg Tab.er.24h, 250 MG ORAL TID, TAB 05/30/17 Aspirin* (ASPIR 81*) 81 Mg Tablet.dr, 81 MG ORAL DAILY, TAB 05/30/17 Tamsulosin Hcl (TAMSULOSIN HCL*) 0.4 Mg Cap.er.24h, 0.4 MG PO BEDTIME, CAP 12/06/16 Vitamin B Cmplx/Vit C/Folic AC (Nephro-Kecia Tablet) 0.8 Mg Tablet, 1 TAB PO BID 12/06/16 Minoxidil* (LONITEN*) 2.5 Mg Tablet, 5 MG PO DAILY, TAB 12/06/16 Levothyroxine Sodium* (LEVOTHYROXINE SODIUM*) 125 Mcg Tablet, 125 MCG PO DAILY, TAB Take in the morning on an empty stomach, at least 30 minutes before food. 12/06/16 Levetiracetam* (LEVETIRACETAM*) 100 Mg/1 Ml Solution, 500 MG PO BID 12/06/16 Labetalol Hcl* (NORMODYNE*) 100 Mg Tablet, 400 MG PO EVERY 12 HOURS, TAB 12/06/16 Hydralazine Hcl* (HYDRALAZINE HCL*) 25 Mg Tablet, 25 MG PO QID, TAB 0 Refills 12/06/16 Amlodipine Besylate* (AMLODIPINE BESYLATE*) 5 Mg Tablet, 5 MG PO BID, TAB 12/06/16 Med list reviewed/reconciled: Yes Allergies: Coded Allergies: No Known Allergies (Unverified , 05/30/17) Patient History Limited by: medical condition History Provided By: Patient, Medical Record PMH Narrative Past Medical History: see triage record Reviewed Nursing Documentation: PMH: Agreed; PSxH: Agreed Nursing Documentation-PMH Past Medical History: No History, Except For Hx Cardiac Problems: Yes - hypothyroidism, anemia, CHF Hx Hypertension: Yes Hx COPD: Yes Hx Diabetes: Yes - type II Hx Cancer: No Hx Gastrointestinal Problems: Yes - dysphagia, g-tube, GERD Hx Dialysis: Yes - T [facility] Hx Neurological Problems: Yes - s/p left hip fx on 01/28, muscle weakness Hx Cerebrovascular Accident: Yes Hx Transient Ischemic Attacks: Yes Hx Dementia: Yes Hx Seizures: Yes Social History: Denies: smoking, alcohol use, drug use, other Review of Systems All Other Systems: negative except mentioned in HPI Physical Exam Vital Signs Date Time Temp Pulse Resp B/P (MAP) Pulse Ox O2 Delivery O2 Flow Rate FiO2 04/04/18 15:38 98.4 70 18 122/62 98 Room Air 04/04/18 15:50 97 Sp02 EP Interpretation: reviewed, normal Labs Laboratory Tests Test 04/04/18 17:28 White Blood Count 5.6 K/UL (4.8-10.8) Red Blood Count 5.90 M/UL (4.70-6.10) Hemoglobin 15.9 G/DL (14.2-18.0) Hematocrit 54.3 % (42.0-52.0) H Mean Corpuscular Volume 92 FL (80-99) Mean Corpuscular Hemoglobin 27.0 PG (27.0-31.0) Mean Corpuscular Hemoglobin Concent 29.3 G/DL (32.0-36.0) L Red Cell Distribution Width 20.0 % (11.6-14.8) H Platelet Count 164 K/UL (150-450) Mean Platelet Volume 7.8 FL (6.5-10.1) Neutrophils (%) (Auto) 59.8 % (45.0-75.0) Lymphocytes (%) (Auto) 14.7 % (20.0-45.0) L Monocytes (%) (Auto) 8.5 % (1.0-10.0) Eosinophils (%) (Auto) 15.0 % (0.0-3.0) H Basophils (%) (Auto) 2.0 % (0.0-2.0) Prothrombin Time 10.4 SEC (9.30-11.50) Prothromb Time International Ratio 1.0 (0.9-1.1) Activated Partial Thromboplast Time 34 SEC (23-33) H Sodium Level 142 MMOL/L (136-145) Potassium Level 4.4 MMOL/L (3.5-5.1) Chloride Level 105 MMOL/L (98-107) Carbon Dioxide Level 30 MMOL/L (21-32) Anion Gap 7 mmol/L (5-15) Blood Urea Nitrogen 11 mg/dL (7-18) Creatinine 3.0 MG/DL (0.55-1.30) H Estimat Glomerular Filtration Rate mL/min (>60) Glucose Level 120 MG/DL (74-106) H Calcium Level 9.7 MG/DL (8.5-10.1) Total Bilirubin 0.4 MG/DL (0.2-1.0) Aspartate Amino Transf (AST/SGOT) 27 U/L (15-37) Alanine Aminotransferase (ALT/SGPT) 15 U/L (12-78) Alkaline Phosphatase 207 U/L (46-116) H Troponin I 0.008 ng/mL (0.000-0.056) Total Protein 9.0 G/DL (6.4-8.2) H Albumin 2.8 G/DL (3.4-5.0) L Globulin 6.2 g/dL Albumin/Globulin Ratio 0.5 (1.0-2.7) L Thyroid Stimulating Hormone (TSH) 5.673 uiU/mL (0.358-3.740) Serum Alcohol < 3 mg/dL General Appearance: well appearing, no apparent distress, alert Head: normocephalic EENT: PERRL/EOMI, normal ENT inspection Neck: supple Respiratory: normal breath sounds, no respiratory distress Cardiovascular: normal rate Gastrointestinal: normal inspection, non tender, soft, normal bowel sounds, non -distended Rectal: deferred Genitourinary: deferred Musculoskeletal: normal inspection, back normal Neurologic: alert, responsive Psychiatric: normal inspection, judgement/insight normal, memory normal Skin: normal inspection, normal color, no rash, warm/dry, palpation normal, well hydrated Lymphatic: normal inspection, no adenopathy Current Medications Current Medications Medications (Trade) Dose Ordered Sig/Yamilka Route PRN Reason Start Time Stop Time Status Last Admin Dose Admin Amlodipine Besylate (Norvasc) 5 mg BID ORAL 04/05/18 09:00 05/05/18 08:59 04/05/18 08:58 Aspirin (Ecotrin) 81 mg DAILY ORAL 04/05/18 09:00 05/05/18 08:59 04/05/18 08:57 Divalproex Sodium (Depakote ER) 250 mg TID ORAL 04/05/18 09:00 05/05/18 08:59 04/05/18 08:57 Heparin Sodium (Porcine) (Heparin 5000 units/ml) 5,000 units EVERY 12 HOURS SUBQ 04/05/18 09:00 05/05/18 08:59 04/05/18 09:02 Hydralazine HCl (Apresoline) 25 mg QID ORAL 04/04/18 23:00 05/04/18 22:59 04/05/18 08:58 Labetalol HCl (Normodyne) 400 mg EVERY 12 HOURS ORAL 04/04/18 23:00 05/04/18 22:59 04/05/18 08:58 Levetiracetam (Keppra) 500 mg BID ORAL 04/05/18 09:00 05/05/18 08:59 04/05/18 08:58 Levothyroxine Sodium (Synthroid) 125 mcg DAILY@0630 ORAL 04/05/18 06:30 05/05/18 06:29 Minoxidil (Loniten) 5 mg DAILY ORAL 04/05/18 09:00 05/05/18 08:59 04/05/18 08:57 Tamsulosin HCl (Flomax) 0.4 mg BEDTIME ORAL 04/04/18 23:00 05/04/18 22:59 Vitamin B Complex/ Vit C/Folic Acid (Nephrovite) 1 tab BID ORAL 04/05/18 09:00 05/05/18 08:59 04/05/18 08:58 Vitamin D (Vitamin D) 1,000 intlu DAILY ORAL 04/05/18 09:00 05/05/18 08:59 04/05/18 08:57 GI: Plan Problems: (1) Severe malnutrition (2) Dehydration (3) PEG (percutaneous endoscopic gastrostomy) adjustment/replacement/removal (4) GERD (gastroesophageal reflux disease) (5) Dementia (6) Anemia (7) Constipation (8) Encounter for generalized patient complaints Plan EGD/colonoscopy done 05/2017. s/p GT removal 07/2017 PEG scheduled for tomorrow. - NPO @ AL. - hold all blood thinners Calorie count ordered for 48 hours One-to-one feeder Strict aspiration precaution PPI IV p.o. hydration We will follow with additional recommendations post procedure Discussed with Dr. Mcdaniel. Thank you for this patient referral, we will follow. The patient was seen and examined at bedside and all new and available data was reviewed in the patients chart. I agree with the above findings, impression and plan. (Patient seen earlier today. Signature stamp does not reflect patient encounter time.). - MD Nataliya StoreyHon[facility] FERRYBOAT Apr 05, 2018 11:01
[2018-04-05 12:00] VITALS: BP 154/75
--- NOTE | 2018-04-05 13:00 | NUR ---
NURSE NOTES:WOUND CARE NOTES:Pt presents with DTPI to R heel .Wound bed black with red tinged borders and is fluctuant(L)3.6cm x(W)5.4cm.Hyperpigmentation periwound. Stable dry eschar L heel (L)2.6cm x (W)3.8cm.Hyperpigmented skin periwound.Sacrum is intact without redness but pt verbalized tenderness when sacrococcygeal area palpated.Moisture barrier applied and covered with Optifoam drsg. Tx.Plan:Swab R and L heels with Betadine.Cover with Optifoam Daily and prn. Off-load Heels with Pillow. Apply Moisture Barrier to Sacrum. Cover with Optifoam drsg.Change every 7 days and prn. Reposition at least every 2hours or as tolerated. Support surface mattress.
--- NOTE | 2018-04-05 14:50 | Consultation ---
History of Present Illness General Chief Complaint: General Complaint Referring physician: HILL BROOKS Reason for Consultation: Failure to thrive Present Illness HPI 83 year old very pleasant male presented with failure to thrive. Hx of failure to thrive with prior G tube placement which was able to be removed once tolerating more PO intake. Since has been deteriorating and has also developed wounds because of malnutrition. surgery called to evaluate and assist with care / management. patient seen, chart reviewed, patient examined. Allergies: Coded Allergies: No Known Allergies (Unverified , 05/30/17) Medication History Scheduled Amlodipine Besylate* (Amlodipine Besylate*), 5 MG PO BID, (Reported) Aspirin* (Aspir 81*), 81 MG ORAL DAILY, (Reported) Cholecalciferol (Vitamin D3)* (Vitamin D*), 1,000 UNIT ORAL DAILY, (Reported) Divalproex Sodium* (Depakote Er*), 250 MG ORAL TID, (Reported) Hydralazine Hcl* (Hydralazine Hcl*), 25 MG PO QID, (Reported) Labetalol Hcl* (Normodyne*), 400 MG PO EVERY 12 HOURS, (Reported) Levetiracetam* (Levetiracetam*), 500 MG PO BID, (Reported) Levothyroxine Sodium* (Levothyroxine Sodium*), 125 MCG PO DAILY, (Reported) Methoxy Peg-Epoetin Beta (Mircera), 75 MCG IJ Q2WKS ON 3RD HD, (Reported) Minoxidil* (Loniten*), 5 MG PO DAILY, (Reported) Tamsulosin Hcl (Tamsulosin Hcl*), 0.4 MG PO BEDTIME, (Reported) Vitamin B Cmplx/Vit C/Folic AC (Nephro-Kecia Tablet), 1 TAB PO BID, (Reported) Patient History History Provided By: Patient, Medical Record, PMD Healthcare decision maker N Resuscitation status Advanced Directive on File Past Medical/Surgical History Past Medical/Surgical History: (1) Arthritis (2) Hypothyroidism (3) Chronic pancreatitis (4) HTN (hypertension) (5) Colonoscopy planned (6) Encounter for generalized patient complaints (7) Constipation (8) Anemia (9) Dementia (10) GERD (gastroesophageal reflux disease) (11) Severe malnutrition (12) PEG (percutaneous endoscopic gastrostomy) adjustment/replacement/removal (13) Dehydration (14) Weakness (15) ESRD (end stage renal disease) Review of Systems All Other Systems: negative except mentioned in HPI Physical Exam General Appearance: no apparent distress, alert, thin Lines, tubes and drains: peripheral HEENT: anicteric Neck: normal inspection Respiratory/Chest: normal breath sounds, no respiratory distress, no accessory muscle use Cardiovascular/Chest: normal rate Abdomen: soft, no organomegaly, no mass, other Extremities: normal inspection, other Skin Exam: warm/dry, other Neurologic: alert, responsive Last 24 Hour Vital Signs Date Time Temp Pulse Resp B/P (MAP) Pulse Ox O2 Delivery O2 Flow Rate FiO2 04/05/18 13:00 108/44 04/05/18 08:58 68 150/54 04/05/18 08:58 150/54 04/05/18 08:58 68 150/54 04/05/18 08:57 150/54 04/05/18 04:30 68 04/05/18 04:00 97.7 20 150/54 (86) 95 04/05/18 00:47 66 04/05/18 00:00 98.0 20 143/50 (81) 100 04/04/18 23:56 Room Air 04/04/18 23:00 64 157/64 04/04/18 23:00 157/64 04/04/18 21:00 64 04/04/18 21:00 97.5 20 157/64 (95) 100 04/04/18 20:04 98.0 84 18 151/74 97 Room Air 97 04/04/18 18:00 98.0 84 18 151/74 97 Room Air 04/04/18 15:50 65 15 Room Air 97 04/04/18 15:50 98.4 65 18 122/62 98 Room Air 04/04/18 15:38 98.4 70 18 122/62 98 Room Air Intake and Output 04/04/18 04/05/18 19:00 07:00 Intake Total 0 ml Balance 0 ml Intake Oral 0 ml # Voids 1 # Bowel Movements 2 Laboratory Tests Test 04/04/18 17:28 White Blood Count 5.6 K/UL (4.8-10.8) Red Blood Count 5.90 M/UL (4.70-6.10) Hemoglobin 15.9 G/DL (14.2-18.0) Hematocrit 54.3 % (42.0-52.0) H Mean Corpuscular Volume 92 FL (80-99) Mean Corpuscular Hemoglobin 27.0 PG (27.0-31.0) Mean Corpuscular Hemoglobin Concent 29.3 G/DL (32.0-36.0) L Red Cell Distribution Width 20.0 % (11.6-14.8) H Platelet Count 164 K/UL (150-450) Mean Platelet Volume 7.8 FL (6.5-10.1) Neutrophils (%) (Auto) 59.8 % (45.0-75.0) Lymphocytes (%) (Auto) 14.7 % (20.0-45.0) L Monocytes (%) (Auto) 8.5 % (1.0-10.0) Eosinophils (%) (Auto) 15.0 % (0.0-3.0) H Basophils (%) (Auto) 2.0 % (0.0-2.0) Prothrombin Time 10.4 SEC (9.30-11.50) Prothromb Time International Ratio 1.0 (0.9-1.1) Activated Partial Thromboplast Time 34 SEC (23-33) H Sodium Level 142 MMOL/L (136-145) Potassium Level 4.4 MMOL/L (3.5-5.1) Chloride Level 105 MMOL/L (98-107) Carbon Dioxide Level 30 MMOL/L (21-32) Anion Gap 7 mmol/L (5-15) Blood Urea Nitrogen 11 mg/dL (7-18) Creatinine 3.0 MG/DL (0.55-1.30) H Estimat Glomerular Filtration Rate mL/min (>60) Glucose Level 120 MG/DL (74-106) H Calcium Level 9.7 MG/DL (8.5-10.1) Total Bilirubin 0.4 MG/DL (0.2-1.0) Aspartate Amino Transf (AST/SGOT) 27 U/L (15-37) Alanine Aminotransferase (ALT/SGPT) 15 U/L (12-78) Alkaline Phosphatase 207 U/L (46-116) H Troponin I 0.008 ng/mL (0.000-0.056) Total Protein 9.0 G/DL (6.4-8.2) H Albumin 2.8 G/DL (3.4-5.0) L Globulin 6.2 g/dL Albumin/Globulin Ratio 0.5 (1.0-2.7) L Thyroid Stimulating Hormone (TSH) 5.673 uiU/mL (0.358-3.740) Serum Alcohol < 3 mg/dL Microbiology Date/Time Source Procedure Growth Status 04/04/18 22:00 Foot Right Gram Stain - Final Resulted 04/04/18 22:00 Foot Right Wound Culture Pending Resulted Height (Feet): 5 Height (Inches): 8.00 Weight (Pounds): 160 Medications Current Medications Medications (Trade) Dose Ordered Sig/Yamilka Route PRN Reason Start Time Stop Time Status Last Admin Dose Admin Amlodipine Besylate (Norvasc) 5 mg BID ORAL 04/05/18 09:00 05/05/18 08:59 04/05/18 08:58 Aspirin (Ecotrin) 81 mg DAILY ORAL 04/05/18 09:00 05/05/18 08:59 04/05/18 08:57 Cefoxitin Sodium 1 gm/Dextrose 55 ml @ 110 mls/hr ONCE PRN IV environmental studies faculty member to GI lab 04/06/18 08:00 04/07/18 07:59 Divalproex Sodium (Depakote ER) 250 mg TID ORAL 04/05/18 09:00 05/05/18 08:59 04/05/18 14:04 Heparin Sodium (Porcine) (Heparin 5000 units/ml) 5,000 units EVERY 12 HOURS SUBQ 04/05/18 09:00 05/05/18 08:59 04/05/18 09:02 Hydralazine HCl (Apresoline) 25 mg QID ORAL 04/04/18 23:00 05/04/18 22:59 04/05/18 08:58 Labetalol HCl (Normodyne) 400 mg EVERY 12 HOURS ORAL 04/04/18 23:00 05/04/18 22:59 04/05/18 08:58 Levetiracetam (Keppra) 500 mg BID ORAL 04/05/18 09:00 05/05/18 08:59 04/05/18 08:58 Levothyroxine Sodium (Synthroid) 125 mcg DAILY@0630 ORAL 04/05/18 06:30 05/05/18 06:29 Minoxidil (Loniten) 5 mg DAILY ORAL 04/05/18 09:00 05/05/18 08:59 04/05/18 08:57 Tamsulosin HCl (Flomax) 0.4 mg BEDTIME ORAL 04/04/18 23:00 05/04/18 22:59 Vitamin B Complex/ Vit C/Folic Acid (Nephrovite) 1 tab BID ORAL 04/05/18 09:00 05/05/18 08:59 04/05/18 08:58 Vitamin D (Vitamin D) 1,000 intlu DAILY ORAL 04/05/18 09:00 05/05/18 08:59 04/05/18 08:57 Assessment/Plan Problem List: (1) Severe malnutrition Assessment & Plan: Failure to thrive resulting in loss of weight, weakness, and now developing 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 Stable dry eschar L heel (L)2.6cm x (W)3.8cm.Hyperpigmented skin periwound.Sacrum is intact without redness but pt verbalized tenderness when sacrococcygeal area palpated.Moisture barrier applied and covered with Optifoam drsg. GI for PEG placement Nutritional optimization necessary to help with wound healing Swab R and L heels with Betadine.Cover with Optifoam Daily and prn. Off-load Heels with Pillow. Apply Moisture Barrier to Sacrum. Cover with Optifoam drsg.Change every 7 days and prn. Reposition at least every 2hours or as tolerated. Support surface mattress. thank you will follow with recs ICD Codes: E43 - Unspecified severe protein-calorie malnutrition SNOMED: 14771261 Demarco Benz Apr 05, 2018 14:50
[2018-04-05] MEDS ORDERED: Heparin Sod 1000 units/ml 10ml IV PRN (17:30)
--- NOTE | 2018-04-05 19:43 | NUR ---
HAND-OFF: Report given to Claudia ZENDEJAS. Pt is resting in bed in stable condition. Endorsed plan of care; SPR mattress ordered, consent for EGD/PEG received/filed in chart, NPO midnight, hold Heparin, contacted [facility] dialysis for tomorrow, spoke with He.
--- NOTE | 2018-04-05 19:45 | NUR ---
NURSE NOTES: Bedside report received from AASHISH Louis. Pt is resting in bed. Arousable by name, otherwise confused. bus monitor showing NSR. On RA; sating well, VSS. Pt is NPO at [facility] for EGD with possible PEG placement and biopsy; consent in the chart. Skin is clean and dry, dressings intact. HAYDER shunt noted, asymptomatic. RAC 20g SL; patent. Bed is locked in lowest position, SR x3, call lamb within reach, bed alarm engaged. Will continue to monitor and follow plan of care.
[2018-04-05 20:00] VITALS: BP 142/60
--- NOTE | 2018-04-05 20:02 | NUR ---
CASE MANAGEMENT: REVIEW 83/M SARAHA FROM RENAL CC: GENERALIZED WEAKNESS IS: DEHYDRATION . ESRD ON HD . MALNUTRITION T 97.5 HR 64 RR 18 BP 151/74 SAT 97% ROOM AIR ALK PHOS 207 TSH 5.673 SI: NS FLUSH X1 GI AND SURGICAL CONSULT FOR PEG PLACEMENT PATIENT ADMITTED TO TELEMETRY UNIT 04/04/2018 DCP: PATIENT IS FROM [facility]
[2018-04-05] MEDS: Tamsulosin 0.4mg cap ORAL SCH (20:39)
--- NOTE | 2018-04-05 21:00 | History and Physical Report ---
DATE OF ADMISSION: 04/04/2018 CHIEF COMPLAINT: Weight loss and anorexia. HISTORY OF PRESENT ILLNESS: This is an 83-year-old male, who is on dialysis every Monday, Monday, and Monday. During the last few months, the patient has been noticed to be extremely malnourished. The patient is demented. He is from a [facility] under the care of Dr. Madelin Valentino. Previously, he had a G-tube that was removed several months ago. After removal of the G-tube, the patient declined nutritionally again. The patient does not consume enough calories and protein. I called Dr. Valentino and obtained her consent to put the patient in this hospital for placement of a G-tube. PAST MEDICAL HISTORY: 1. End-stage renal failure due to diabetic nephropathy. 2. Degenerative joint disease. 3. Organic brain syndrome. 4. Hypertensive cardiovascular disease. 5. Hypothyroidism. 6. Seizure disorder. MEDICATIONS: Medications from the [facility], amlodipine, baby aspirin, vitamin D3, Depakote, hydralazine, labetalol, Keppra, Synthroid, Epogen, minoxidil, tamsulosin, and multivitamin. ALLERGIES: No known drug allergies. FAMILY HISTORY: Unable to obtain due to mental status. SOCIAL HISTORY: Unable to obtain due to mental status. REVIEW OF SYSTEMS: Unable to obtain due to mental status. PHYSICAL EXAMINATION: GENERAL: This is an elderly male, who is in no acute distress. VITAL SIGNS: Blood pressure 108/44, pulse 62 and regular, respirations 20, and temperature 97.3 oral. HEENT: The head is normocephalic and atraumatic. He has very poor oral dentition. NECK: Supple. Trachea midline. There was no lymphadenopathy or thyromegaly. LUNGS: Clear to auscultation and percussion. HEART: Regular rate and rhythm without rubs, murmurs, or gallops. ABDOMEN: Soft and nontender. Bowel sounds were active. EXTREMITIES: He has right heel wound with tinged borders and is fluctuant. He also has an eschar of the left heel. NEUROLOGIC: The patient is confused. There were no gross focal findings. LABORATORY AND ANCILLARY DATA: CBC within normal limits. Serum chemistry, creatinine 3, BUN 11 post dialysis, and glucose 120. Alkaline phosphatase 207. Albumin is 2.8. TSH 5.6. ASSESSMENT: Severe protein-calorie malnutrition. PLAN: 1. Obtain G-tube. The plan is to get one tomorrow. 2. Podiatry and General Surgery consult for the patient's wound. 3. Hemodialysis tomorrow. The patient is scheduled. Edda Chavez M.D. DR: KESHIA JOB#: [id number] CC:
[2018-04-06] VITALS (11 sets, daily range): BP systolic 102–150; BP diastolic 36–75
[2018-04-06] MEDS: Levothyroxine 125mcg tab ORAL SCH (05:54)
[2018-04-06 07:11] LABS: BASOPHILS % (AUTO) 1.6 % (0.0-2.0); EOSINOPHILS % (AUTO) 17.8 % (0.0-3.0); HEMATOCRIT 53.7 % (42.0-52.0); LYMPHOCYTES % (AUTO) 15.5 % (20.0-45.0); MEAN CORPUSCULAR VOLUME 91 FL (80-99); MONOCYTES % (AUTO) 8.1 % (1.0-10.0); PLATELET COUNT 213 K/UL (150-450); RED BLOOD COUNT 5.89 M/UL (4.70-6.10); RED CELL DISTRIBUTION WIDTH 20.3 % (11.6-14.8); WHITE BLOOD COUNT 7.3 K/UL (4.8-10.8)
--- NOTE | 2018-04-06 07:16 | NUR ---
HAND-OFF: Report given to AASHISH Charles.
--- NOTE | 2018-04-06 07:25 | NUR ---
Received patient and report from [facility] shift nurse Claudia, reported sinus Rhythm with AVB. Patient in bed awake, alert, and oriented x1-2 with padded side rails x 2 up with head of bed up and call light with in reach. No acute distress noted. No complaint of pain. Will continue to monitor.
[2018-04-06 07:26] LABS: ANION GAP 7 mmol/L (5-15); BLOOD UREA NITROGEN 34 mg/dL (7-18); CALCIUM 9.7 MG/DL (8.5-10.1); CARBON DIOXIDE 29 MMOL/L (21-32); CHLORIDE 106 MMOL/L (98-107); CREATININE 4.9 MG/DL (0.55-1.30); POTASSIUM 5.3 MMOL/L (3.5-5.1); SODIUM 142 MMOL/L (136-145)
[2018-04-06] MEDS ORDERED: DiphenhydrAMINE 50mg/ml Inj IVP PRN (08:00)
[2018-04-06] MEDS ORDERED: cefOXitin Sod 1 GM in D5W 55 ML IV PRN (08:00)
[2018-04-06] MEDS ORDERED: Lidocaine 1% MPF 10mg/ml 5ml ONE (08:00)
[2018-04-06] MEDS ORDERED: Atropine Inj 1mg/10ml Syr IV PRN (08:00)
[2018-04-06] MEDS ORDERED: Midazolam 2mg/2ml Inj IVP PRN (08:00)
[2018-04-06] MEDS ORDERED: fentaNYL 100 mcg/2 mL IV PRN (08:00)
[2018-04-06] MEDS ORDERED: Propofol 200mg/20ml IV ONE (08:00)
--- NOTE | 2018-04-06 08:10 | Anethesia Preoperative Eval ---
Anesthesia Pre-op PMH/ROS General Date of Evaluation: Apr 06, 2018 Time of Evaluation: 07:59 Anesthesiologist: colin ASA Score: ASA 4 Mallampati Score Class I : Soft palate, uvula, fauces, pillars visible Class II: Soft palate, uvula, fauces visible Class III: Soft palate, base of uvula visible Class IV: Only hard plate visible Mallampati Classification: Class II Surgeon: sandrita Diagnosis: severe malnutrition Surgical Procedure: peg placement Anesthesia History: none Family History: no anesthesia problems Allergies: Coded Allergies: No Known Allergies (Unverified , 05/30/17) Medications: see eMAR Patient NPO?: Yes Past Medical History Cardiovascular: Reports: HTN - hypertensive cardiovascular disease Gastrointestinal/Genitourinary: Reports: GERD, ESRD - mwf, other - chronic pancreatitis Neurologic/Psychiatric: Reports: dementia - organic brain syndrome, other - seizure disorder Endocrine: Reports: hypothyroidism Hematology/Immune: Reports: anemia Musculoskeletal/Integumentary: Reports: DJD Anesthesia Pre-op Phys. Exam Physician Exam Last Vital Signs Date Time Temp Pulse Resp B/P (MAP) Pulse Ox O2 Delivery O2 Flow Rate FiO2 04/06/18 04:00 97.1 63 18 125/50 (75) 99 04/05/18 21:00 Room Air 04/04/18 20:04 97 Constitutional: NAD Neurologic: CN 2-12 intact Cardiovascular: RRR Respiratory: CTA Gastrointestinal: S/NT/ND Airway Exam Mallampati Score: Class II MO: limited Neck: flexible TMD: 2fb ROM: limited Teeth: missing Anesthesia Pre-op A/P Labs Hematology Test 04/06/18 05:50 White Blood Count 7.3 K/UL (4.8-10.8) Red Blood Count 5.89 M/UL (4.70-6.10) Hemoglobin 16.0 G/DL (14.2-18.0) Hematocrit 53.7 % (42.0-52.0) H Mean Corpuscular Volume 91 FL (80-99) Mean Corpuscular Hemoglobin 27.1 PG (27.0-31.0) Mean Corpuscular Hemoglobin Concent 29.8 G/DL (32.0-36.0) L Red Cell Distribution Width 20.3 % (11.6-14.8) H Platelet Count 213 K/UL (150-450) Mean Platelet Volume 6.9 FL (6.5-10.1) Neutrophils (%) (Auto) 57.0 % (45.0-75.0) Lymphocytes (%) (Auto) 15.5 % (20.0-45.0) L Monocytes (%) (Auto) 8.1 % (1.0-10.0) Eosinophils (%) (Auto) 17.8 % (0.0-3.0) H Basophils (%) (Auto) 1.6 % (0.0-2.0) Coagulation Test 04/06/18 05:50 Prothrombin Time 10.5 SEC (9.30-11.50) Prothromb Time International Ratio 1.0 (0.9-1.1) Activated Partial Thromboplast Time 36 SEC (23-33) H Chemistry Test 04/06/18 05:50 Sodium Level 142 MMOL/L (136-145) Potassium Level 5.3 MMOL/L (3.5-5.1) H Chloride Level 106 MMOL/L (98-107) Carbon Dioxide Level 29 MMOL/L (21-32) Anion Gap 7 mmol/L (5-15) Blood Urea Nitrogen 34 mg/dL (7-18) H Creatinine 4.9 MG/DL (0.55-1.30) H Estimat Glomerular Filtration Rate mL/min (>60) Glucose Level 128 MG/DL (74-106) H Calcium Level 9.7 MG/DL (8.5-10.1) Risk Assessment & Plan Assessment: asa4. Plan: mac Status Change Before Surgery: No Pre-Antibiotics Drug: cefoxitin 1gram Given Within 1 Hr of Incision: Yes Time Given: 10:12 Shima Sánchez MD Apr 06, 2018 08:10
[2018-04-06] MEDS: Heparin 5000 units/ml inj SUBQ SCH ×2 (09:00→22:19)
[2018-04-06] MEDS: Aspirin EC 81mg tab ORAL SCH (09:00)
[2018-04-06] MEDS: Minoxidil 2.5mg tab ORAL SCH (09:00)
[2018-04-06] MEDS: Depakote ER 250mg tab ORAL SCH ×2 (09:00→12:50)
[2018-04-06] MEDS: Nephrovite tab (Rena-Vite) ORAL SCH (09:00)
[2018-04-06] MEDS: HydrALAZINE 25mg tab ORAL SCH ×2 (09:00→12:50)
--- NOTE | 2018-04-06 09:59 | NUR ---
NURSE NOTES: Patient left floor with OR tech on gurney.
--- NOTE | 2018-04-06 10:03 | Pre-Procedure Note/Attestation ---
Pre-Procedure Note/Attestation Complete Prior to Procedure Planned Procedure: not applicable Procedure Narrative: egd/peg Indications for Procedure Pre-Operative Diagnosis: dysphagia Attestation I attest that I discussed the nature of the procedure; its benefits; risks and complications; and alternatives (and the risks and benefits of such alternatives ), prior to the procedure, with the patient (or the patient's legal loan servicing representative). I attest that, if there was a reasonable possibility of needing a blood transfusion, the patient (or the patient's legal loan servicing representative) was given the [facility] standardized written summary, pursuant to the [place] Blood Safety Act ([place] Health and Safety Code # 1645, as amended). I attest that I re-evaluated the patient just prior to the surgery and that there has been no change in the patient's H&P, except as documented below: Homero Mcdaniel MD Apr 06, 2018 10:03
[2018-04-06] MEDS ORDERED: cefOXitin 1gm Inj IVPB ONE (10:07)
--- NOTE | 2018-04-06 10:11 | General Progress Note ---
Assessment/Plan Problem List: (1) HTN (hypertension) ICD Codes: I10 - Essential (primary) hypertension SNOMED: 20840074 (2) Hypothyroidism ICD Codes: E03.9 - Hypothyroidism, unspecified SNOMED: 55015065 (3) ESRD (end stage renal disease) ICD Codes: N18.6 - End stage renal disease SNOMED: 37859892 (4) PEG (percutaneous endoscopic gastrostomy) adjustment/replacement/removal ICD Codes: Z43.1 - Encounter for attention to gastrostomy SNOMED: 584234225, 732365180 Assessment/Plan plan PEG for today Subjective ROS Limited/Unobtainable: No Allergies: Coded Allergies: No Known Allergies (Unverified , 05/30/17) Objective Last 24 Hour Vital Signs Date Time Temp Pulse Resp B/P (MAP) Pulse Ox O2 Delivery O2 Flow Rate FiO2 04/06/18 08:00 97.1 64 20 149/69 (95) 91 04/06/18 07:40 66 04/06/18 04:00 97.1 63 18 125/50 (75) 99 04/06/18 04:00 62 04/06/18 00:00 62 04/06/18 00:00 98.0 92 18 131/75 (93) 98 04/05/18 21:00 Room Air 04/05/18 20:39 69 142/60 04/05/18 20:39 142/60 04/05/18 20:00 67 04/05/18 20:00 97.0 69 18 142/60 (87) 91 04/05/18 17:21 61 128/48 04/05/18 17:20 128/48 04/05/18 16:00 66 04/05/18 13:00 108/44 04/05/18 12:00 62 04/05/18 12:00 97.3 90 20 154/75 (101) 93 Intake and Output 04/05/18 04/06/18 18:59 06:59 Intake Total 260 ml 240 ml Balance 260 ml 240 ml Intake Oral 260 ml 240 ml # Voids 1 # Bowel Movements 2 Laboratory Tests 04/06/18 05:50: White Blood Count 7.3, Red Blood Count 5.89, Hemoglobin 16.0, Hematocrit 53.7H, Mean Corpuscular Volume 91, Mean Corpuscular Hemoglobin 27.1, Mean Corpuscular Hemoglobin Concent 29.8L, Red Cell Distribution Width 20.3H, Platelet Count 213 , Mean Platelet Volume 6.9, Neutrophils (%) (Auto) 57.0, Lymphocytes (%) (Auto) 15.5L, Monocytes (%) (Auto) 8.1, Eosinophils (%) (Auto) 17.8H, Basophils (%) ( Auto) 1.6, Prothrombin Time 10.5, Prothromb Time International Ratio 1.0, Activated Partial Thromboplast Time 36H, Sodium Level 142, Potassium Level 5.3H , Chloride Level 106, Carbon Dioxide Level 29, Anion Gap 7, Blood Urea Nitrogen 34H, Creatinine 4.9H, Estimat Glomerular Filtration Rate , Glucose Level 128H, Calcium Level 9.7 Height (Feet): 5 Height (Inches): 8.00 Weight (Pounds): 159 General Appearance: no apparent distress EENT: normal ENT inspection Neck: supple Cardiovascular: normal rate Respiratory/Chest: decreased breath sounds Abdomen: normal bowel sounds, non tender, soft Extremities: non-tender Homero Mcdaniel MD Apr 06, 2018 10:11
--- NOTE | 2018-04-06 10:24 | Endoscopy Procedure Note ---
Endoscopy Procedure Note General Indication for Procedure: dysphgaia Procedures Performed: EGD, PEG Operative Findings/Diagnosis: same Specimen: none Pt Tolerated Procedure Well: Yes Estimated Blood Loss: none Anesthesia Anesthesiologist: colin Anesthesia: MAC Inserted Devices Implant(s) used?: No GI Core Measures 50 yrs or older w/o bx or poly: Not Applicable 10yrs. F/U not recommended: Not Applicable Homero Mcdaniel MD Apr 06, 2018 10:24
--- NOTE | 2018-04-06 10:48 | Immediate Post-Op Evaluation ---
Immediate Post-Op Evalulation Immediate Post-Op Evalulation Procedure: egd/peg Date of Evaluation: Apr 06, 2018 Time of Evaluation: 10:45 IV Fluids: 100ml 0.9ns Blood Products: none Estimated Blood Loss: negligible Blood Pressure Systolic: 102 Blood Pressure Diastolic: 39 Pulse Rate: 59 Respiratory Rate: 18 O2 Sat by Pulse Oximetry: 100 Temperature (Fahrenheit): 97.3 Pain Score (1-10): 0 Nausea: No Vomiting: No Complications none Patient Status: awake, reacts, patent Hydration Status: adequate Drug: cefoxitin 1gm Given Within 1 Hr of Incision: Yes Time Given: 10:12 Shima Sánchez MD Apr 06, 2018 10:47
--- NOTE | 2018-04-06 10:49 | 48 Hour Post Anesthesia Eval ---
Post Anesthesia Evaluation Procedure: egd/peg Date of Evaluation: Apr 06, 2018 Time of Evaluation: 10:48 Blood Pressure Systolic: 102 0: 42 Pulse Rate: 59 Respiratory Rate: 18 Temperature (Fahrenheit): 97.3 O2 Sat by Pulse Oximetry: 100 Airway: patent Nausea: No Vomiting: No Pain Intensity: 0 Hydration Status: adequate Cardiopulmonary Status: stable Mental Status/LOC: patient returned to baseline Post-Anesthesia Complications: none Follow-up care needed: N/A Shima Sánchez MD Apr 06, 2018 10:49
--- NOTE | 2018-04-06 11:18 | Surgery Progress Note ---
Surgery Progress Note Subjective Additional Comments scope today. otherwise stable. labs noted Objective Last 24 Hour Vital Signs Date Time Temp Pulse Resp B/P (MAP) Pulse Ox O2 Delivery O2 Flow Rate FiO2 04/06/18 10:53 59 18 147/48 99 Room Air 04/06/18 10:49 59 18 100 04/06/18 10:47 59 18 100 04/06/18 10:43 59 18 148/50 100 Room Air 04/06/18 10:38 59 18 117/38 100 Nasal Cannula 3 04/06/18 10:33 97.3 59 18 102/36 100 Nasal Cannula 3 04/06/18 09:00 Room Air 04/06/18 08:00 97.1 64 20 149/69 (95) 91 04/06/18 07:40 66 04/06/18 04:00 97.1 63 18 125/50 (75) 99 04/06/18 04:00 62 04/06/18 00:00 62 04/06/18 00:00 98.0 92 18 131/75 (93) 98 04/05/18 21:00 Room Air 04/05/18 20:39 69 142/60 04/05/18 20:39 142/60 04/05/18 20:00 67 04/05/18 20:00 97.0 69 18 142/60 (87) 91 04/05/18 17:21 61 128/48 04/05/18 17:20 128/48 04/05/18 16:00 66 04/05/18 13:00 108/44 04/05/18 12:00 62 04/05/18 12:00 97.3 90 20 154/75 (101) 93 I&O Intake and Output 04/05/18 04/06/18 18:59 06:59 Intake Total 260 ml 240 ml Balance 260 ml 240 ml Intake Oral 260 ml 240 ml # Voids 1 # Bowel Movements 2 Dressing: dry, other Wound: clean, other Drains: other Cardiovascular: RSR Respiratory: decreased breath sounds Abdomen: soft, present bowel sounds, non-distended Extremities: other Laboratory Tests Test 04/06/18 05:50 White Blood Count 7.3 K/UL (4.8-10.8) Red Blood Count 5.89 M/UL (4.70-6.10) Hemoglobin 16.0 G/DL (14.2-18.0) Hematocrit 53.7 % (42.0-52.0) H Mean Corpuscular Volume 91 FL (80-99) Mean Corpuscular Hemoglobin 27.1 PG (27.0-31.0) Mean Corpuscular Hemoglobin Concent 29.8 G/DL (32.0-36.0) L Red Cell Distribution Width 20.3 % (11.6-14.8) H Platelet Count 213 K/UL (150-450) Mean Platelet Volume 6.9 FL (6.5-10.1) Neutrophils (%) (Auto) 57.0 % (45.0-75.0) Lymphocytes (%) (Auto) 15.5 % (20.0-45.0) L Monocytes (%) (Auto) 8.1 % (1.0-10.0) Eosinophils (%) (Auto) 17.8 % (0.0-3.0) H Basophils (%) (Auto) 1.6 % (0.0-2.0) Prothrombin Time 10.5 SEC (9.30-11.50) Prothromb Time International Ratio 1.0 (0.9-1.1) Activated Partial Thromboplast Time 36 SEC (23-33) H Sodium Level 142 MMOL/L (136-145) Potassium Level 5.3 MMOL/L (3.5-5.1) H Chloride Level 106 MMOL/L (98-107) Carbon Dioxide Level 29 MMOL/L (21-32) Anion Gap 7 mmol/L (5-15) Blood Urea Nitrogen 34 mg/dL (7-18) H Creatinine 4.9 MG/DL (0.55-1.30) H Estimat Glomerular Filtration Rate mL/min (>60) Glucose Level 128 MG/DL (74-106) H Calcium Level 9.7 MG/DL (8.5-10.1) Plan Problems: (1) Severe malnutrition Assessment & Plan: Failure to thrive resulting in loss of weight, weakness, and now developing 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 Stable dry eschar L heel (L)2.6cm x (W)3.8cm.Hyperpigmented skin periwound.Sacrum is intact without redness but pt verbalized tenderness when sacrococcygeal area palpated.Moisture barrier applied and covered with Optifoam drsg. GI for PEG placement Nutritional optimization necessary to help with wound healing Swab R and L heels with Betadine.Cover with Optifoam Daily and prn. Off-load Heels with Pillow. Apply Moisture Barrier to Sacrum. Cover with Optifoam drsg.Change every 7 days and prn. Reposition at least every 2hours or as tolerated. Support surface mattress. thank you will follow with Demarco Gamboa Apr 06, 2018 11:18
--- NOTE | 2018-04-06 11:25 | Nephrology Progress Note ---
Assessment/Plan Plan New PEG in. Dietary to recommend. ESRD - HD to follow. Expect DC tonight or early am Subjective Subjective Confused. Post PEG. Objective Objective Last 24 Hour Vital Signs Date Time Temp Pulse Resp B/P (MAP) Pulse Ox O2 Delivery O2 Flow Rate FiO2 04/06/18 10:53 59 18 147/48 99 Room Air 04/06/18 10:49 59 18 100 04/06/18 10:47 59 18 100 04/06/18 10:43 59 18 148/50 100 Room Air 04/06/18 10:38 59 18 117/38 100 Nasal Cannula 3 04/06/18 10:33 97.3 59 18 102/36 100 Nasal Cannula 3 04/06/18 09:00 Room Air 04/06/18 08:00 97.1 64 20 149/69 (95) 91 04/06/18 07:40 66 04/06/18 04:00 97.1 63 18 125/50 (75) 99 04/06/18 04:00 62 04/06/18 00:00 62 04/06/18 00:00 98.0 92 18 131/75 (93) 98 04/05/18 21:00 Room Air 04/05/18 20:39 69 142/60 04/05/18 20:39 142/60 04/05/18 20:00 67 04/05/18 20:00 97.0 69 18 142/60 (87) 91 04/05/18 17:21 61 128/48 04/05/18 17:20 128/48 04/05/18 16:00 66 04/05/18 13:00 108/44 04/05/18 12:00 62 04/05/18 12:00 97.3 90 20 154/75 (101) 93 Intake and Output 04/05/18 04/06/18 18:59 06:59 Intake Total 260 ml 240 ml Balance 260 ml 240 ml Intake Oral 260 ml 240 ml # Voids 1 # Bowel Movements 2 Laboratory Tests 04/06/18 05:50: White Blood Count 7.3, Red Blood Count 5.89, Hemoglobin 16.0, Hematocrit 53.7H, Mean Corpuscular Volume 91, Mean Corpuscular Hemoglobin 27.1, Mean Corpuscular Hemoglobin Concent 29.8L, Red Cell Distribution Width 20.3H, Platelet Count 213 , Mean Platelet Volume 6.9, Neutrophils (%) (Auto) 57.0, Lymphocytes (%) (Auto) 15.5L, Monocytes (%) (Auto) 8.1, Eosinophils (%) (Auto) 17.8H, Basophils (%) ( Auto) 1.6, Prothrombin Time 10.5, Prothromb Time International Ratio 1.0, Activated Partial Thromboplast Time 36H, Sodium Level 142, Potassium Level 5.3H , Chloride Level 106, Carbon Dioxide Level 29, Anion Gap 7, Blood Urea Nitrogen 34H, Creatinine 4.9H, Estimat Glomerular Filtration Rate , Glucose Level 128H, Calcium Level 9.7 Height (Feet): 5 Height (Inches): 8.00 Weight (Pounds): 159 Objective CV RR Lungs CTA Abd SNT. BS + Edda Paz MD Apr 06, 2018 11:25
[2018-04-06] MEDS: Vitamin D 1000 IU Tab ORAL SCH (12:49)
--- NOTE | 2018-04-06 14:26 | NUR ---
RD ASSESSMENT & RECOMMENDATIONS SEE CARE ACTIVITY FOR COMPLETE ASSESSMENT RD CONSULT FOR TF RECOMMENDATION DAILY ESTIMATED NEEDS: Needs based on ESRD ON HD, wound 65kg 25-30 kcals/kg 0144-2019 total kcals 1.25-1.8 g protein/kg 81-117 g total protein Fluid per MD, on HD mL/kg total fluid mLs NUTRITION DIAGNOSIS: - Increased kcal and protein needs r/t wound healing and renal dysfunction as evidenced by pt w/ R heel DTI, L heel unstageable wound, w/ ESRD on HD. - Inadequate oral intake R/T poor appetite, clinical condition as evidenced by s/p PEG placement to meet nutritional needs w/ GT feeding. CURRENT DIET:NPO CURRENT TF:NEPRO @ 40ML/HR X 24 HRS PO DIET RECOMMENDATIONS: FOR ORAL GRAT IF APPROPRIATE-> RENAL DIET (texture as tolerated) ENTERAL NUTRITION RECOMMENDATIONS: Nepro @ 45ml/hr x 24 hrs to provide 1080ml, 1944kcal, 87g prot, 785ml free water * Rec to increase goal rate to 45ml/hr- meets 100% est kcal/prot needs * Rec to initiate Nepro @ 15ml/hr x 6 hrs, advance 10ml q 4-6 hrs as tolerated to goal rate. * HOB over 30 degrees/ water flush per MD ADDITIONAL RECOMMENDATIONS: 1) Monitor lytes closely w/ TF, replete as needed 2) Wound care: add CLAUDIA BID 3) Check A1C / eval of BG 4) Obtain dry wt post HD . . .
--- NOTE | 2018-04-06 15:30 | Procedure Note ---
DATE OF PROCEDURE: 04/06/2018 PROCEDURE: Upper endoscopy with PEG placement. SURGEON: Homero Mcdaniel M.D. ANESTHESIA: Per Dr. Desai. INSTRUMENT: Olympus upper endoscope. INDICATION: Dysphagia and failure to thrive. REASON FOR PROCEDURE: The procedure, risks, benefits, and possible consequences, including hemorrhage, aspiration, perforation and infection, and alternative treatments, were explained to the patient/legal guardian by Dr. Homero Mcdaniel and the patient/legal guardian understood and accepted these risks. PROCEDURE IN DETAIL: After informed consent was obtained and the patient was adequately sedated, Olympus upper endoscope was advanced from mouth and the second portion of the duodenum and retroflexion was performed in the stomach. Then, under endoscopic guidance under sterile condition, a 20-Panamanian pull type of G-tube was successfully placed in epigastric area. The distance from the tip of the tube to skin was about 3 cm in size. The patient tolerated the procedure very well without any complication. SUMMARY OF FINDINGS: Status post successful PEG placement. RECOMMENDATIONS: 1. Abdominal binder. 2. Elevate the head of the bed at all times. 3. G-tube flush. 4. G-tube care. 5. Start tube feeding later today. I want to thank Dr. Chavez for this kind referral. Homero Mcdaniel M.D. DR: BRYCE JOB#: [id number] CC: Edda Chavez M.D.; Fax#: [phone]
--- NOTE | 2018-04-06 15:50 | NUR ---
NURSE NOTES: At 1530, patient pulled off EKGs and attempted to pull out GT, stated doesn't need it. Educated pros and cons regarding EKGs and GT, patient continued to attempt to pull off. Informed MD Kamara, new order soft wrist restraints.
--- NOTE | 2018-04-06 16:00 | NUR ---
NURSE NOTES: Restraints applied, provided education to patient with verbal understanding received. Will continue to monitor skin and assess patient.
--- NOTE | 2018-04-06 19:25 | NUR ---
HAND-OFF: Report given to Brielle.
--- NOTE | 2018-04-06 19:30 | NUR ---
NURSE NOTES: Report received from Brooke RN/Araceli RN. Pt is awake, alert, and oriented x1. Pt is on room air and breathing is even and unlabored. No acute distress noted. IV site is asymptomatic, patent, and intact. Bilateral soft wrists noted to be in place - peripheral pulses palpated, no swelling noted, pt has active range of motion. Bed placed in lowest position with brake engaged, side rails up x3, and bed alarm on. HD nurse currently at bedside. Will continue to monitor.
--- NOTE | 2018-04-06 20:00 | NUR ---
NURSE NOTES: MD Chavez paged regarding changing medication routes to GT s/p GT placement today. Awaiting call back for further instructions. G-tube noted to be patent and intact, running Nepro @ 40cc/hr. 20cc residual noted from g-tube. Continuing with tube feeding per protocol. HOB kept greater than 30 degrees while feeding is on. G-tube dressing noted to be dry and intact also. Abdominal binder in place per MD orders. Will continue with plan of care.
--- NOTE | 2018-04-06 20:17 | NUR ---
NURSE NOTES: MD Chavez return call and provided orders that all medications be changed to GT route. Orders noted and carried out.
[2018-04-06] MEDS: Tamsulosin 0.4mg cap ORAL SCH (21:00)
--- NOTE | 2018-04-06 21:13 | NUR ---
NURSE NOTES: Spoke with pharmacy regarding medications unable to be administered via GT route. Per pharmacist, for ASA change to ASA chewable, for depakote ER change order to depakote sln, and change Keppra to sln as well. Flomax unable to be administered via GT. Per pharmacist, alternative is doxasozin. MD Chavez paged to request replacement orders for flomax. Awaiting call back for further instructions.
[2018-04-06] MEDS ORDERED: Nephrovite tab (Rena-Vite) GT SCH (22:00)
[2018-04-06] MEDS: Depakote 125mg Sprinkles GT SCH (22:18)
[2018-04-06] MEDS: HydrALAZINE 25mg tab GT SCH (22:18)
[2018-04-06] MEDS: levETIRAcetam 500mg/5ml Liquid GT SCH (22:21)
[2018-04-07] VITALS: BP 121/50
[2018-04-07 04:00] VITALS: BP 139/44
[2018-04-07] MEDS: Depakote 125mg Sprinkles GT SCH ×3 (06:17→21:53)
[2018-04-07] MEDS: Levothyroxine 125mcg tab GT SCH (06:17)
[2018-04-07 07:25] LABS: ANION GAP 7 mmol/L (5-15); BLOOD UREA NITROGEN 29 mg/dL (7-18); CALCIUM 9.2 MG/DL (8.5-10.1); CARBON DIOXIDE 28 MMOL/L (21-32); CHLORIDE 102 MMOL/L (98-107); POTASSIUM 4.1 MMOL/L (3.5-5.1); SODIUM 137 MMOL/L (136-145)
--- NOTE | 2018-04-07 07:28 | NUR ---
HAND-OFF: Report given to Sergio Hong RN. Pt is resting in bed in stable condition. No acute distress noted. Endorsed plan of care. Addendum: 04/07/18 at 5991 by SKIP CRYSTAL RN Endorsed to AM shift that we are unable to administer Flomax via GT and to notify MD Chavez and request alternative order. Sergio ZENDEJAS verbalized understanding.
[2018-04-07 07:31] LABS: BASOPHILS % (AUTO) 0.5 % (0.0-2.0); HEMATOCRIT 46.6 % (42.0-52.0); HEMOGLOBIN 14.1 G/DL (14.2-18.0); MEAN CORPUSCULAR VOLUME 90 FL (80-99); NEUTROPHILS % (AUTO) 75.5 % (45.0-75.0); PLATELET COUNT 204 K/UL (150-450); RED BLOOD COUNT 5.17 M/UL (4.70-6.10); RED CELL DISTRIBUTION WIDTH 19.7 % (11.6-14.8); WHITE BLOOD COUNT 9.3 K/UL (4.8-10.8)
--- NOTE | 2018-04-07 07:38 | General Progress Note ---
Assessment/Plan Problem List: (1) HTN (hypertension) ICD Codes: I10 - Essential (primary) hypertension SNOMED: 45209880 (2) Hypothyroidism ICD Codes: E03.9 - Hypothyroidism, unspecified SNOMED: 29697685 (3) ESRD (end stage renal disease) ICD Codes: N18.6 - End stage renal disease SNOMED: 49272258 (4) PEG (percutaneous endoscopic gastrostomy) adjustment/replacement/removal ICD Codes: Z43.1 - Encounter for attention to gastrostomy SNOMED: 290112053, 581396892 Assessment/Plan s/p GT placement yesterday GTF GT care dc planning per primary team Subjective ROS Limited/Unobtainable: No Allergies: Coded Allergies: No Known Allergies (Unverified , 05/30/17) Objective Last 24 Hour Vital Signs Date Time Temp Pulse Resp B/P (MAP) Pulse Ox O2 Delivery O2 Flow Rate FiO2 04/07/18 04:00 63 04/07/18 04:00 97.3 67 17 139/44 (75) 100 04/07/18 00:00 97.0 69 17 121/50 (73) 100 04/07/18 00:00 66 04/06/18 22:22 86 130/56 04/06/18 22:18 130/56 04/06/18 22:17 86 130/56 04/06/18 21:00 Room Air 04/06/18 20:00 86 04/06/18 20:00 97.0 96 18 139/56 (83) 99 04/06/18 16:00 97.1 65 20 121/57 (78) 100 04/06/18 16:00 68 04/06/18 12:50 147/48 04/06/18 12:00 97.3 61 20 150/57 (88) 99 04/06/18 12:00 60 04/06/18 10:53 59 18 147/48 99 Room Air 04/06/18 10:49 59 18 100 04/06/18 10:47 59 18 100 04/06/18 10:43 59 18 148/50 100 Room Air 04/06/18 10:38 59 18 117/38 100 Nasal Cannula 3 04/06/18 10:33 97.3 59 18 102/36 100 Nasal Cannula 3 04/06/18 09:00 Room Air 04/06/18 08:00 97.1 64 20 149/69 (95) 91 04/06/18 07:40 66 Intake and Output 04/06/18 04/07/18 18:59 06:59 Intake Total 510 ml Balance 510 ml Intake Oral 110 ml Free Water 30 ml IV Total 260 ml Tube Feeding 110 ml # Voids 1 # Bowel Movements 1 Laboratory Tests 04/07/18 06:06: White Blood Count 9.3, Red Blood Count 5.17, Hemoglobin 14.1L, Hematocrit 46.6, Mean Corpuscular Volume 90, Mean Corpuscular Hemoglobin 27.3, Mean Corpuscular Hemoglobin Concent 30.3L, Red Cell Distribution Width 19.7H, Platelet Count 204 , Mean Platelet Volume 7.7, Neutrophils (%) (Auto) 75.5H, Lymphocytes (%) (Auto ) 10.0L, Monocytes (%) (Auto) 6.0, Eosinophils (%) (Auto) 8.0H, Basophils (%) ( Auto) 0.5, Sodium Level 137, Potassium Level 4.1, Chloride Level 102, Carbon Dioxide Level 28, Anion Gap 7, Blood Urea Nitrogen 29H, Creatinine 4.0H, Estimat Glomerular Filtration Rate , Glucose Level 207H, Calcium Level 9.2 Height (Feet): 5 Height (Inches): 8.00 Weight (Pounds): 159 General Appearance: no apparent distress EENT: normal ENT inspection Neck: supple Cardiovascular: normal rate Respiratory/Chest: decreased breath sounds Abdomen: normal bowel sounds, non tender, soft Extremities: non-tender Homero Mcdaniel MD Apr 07, 2018 07:38
[2018-04-07 08:00] VITALS: BP 133/46
--- NOTE | 2018-04-07 08:27 | NUR ---
NURSE NOTES: Report received from AASHISH Hannah. Pt is asleep. Pt is on room air and breathing is even and unlabored. No acute distress noted. IV site is asymptomatic, patent, and intact. Bilateral soft wrists noted to be in place - peripheral pulses palpated, no swelling noted, pt has active range of motion. Bed placed in lowest position with brake engaged, side rails up x3, and bed alarm on. Patient is on Nepro feeding @ 40ml/hr. Patient's Gt is intact. Patient has heel protectors on. Will continue to monitor. Paged Dr. Tamayo about Flomax adjustment to Gtube @8:30am
[2018-04-07] MEDS: Minoxidil 2.5mg tab GT SCH (10:13)
[2018-04-07] MEDS: HydrALAZINE 25mg tab GT SCH ×4 (10:14→21:54)
[2018-04-07] MEDS: levETIRAcetam 500mg/5ml Liquid GT SCH ×2 (10:14→21:52)
[2018-04-07] MEDS: Aspirin Baby 81mg GT SCH (10:14)
[2018-04-07] MEDS: Vitamin D 1000 IU Tab GT SCH (10:14)
[2018-04-07] MEDS: Nephrovite tab (Rena-Vite) GT SCH ×2 (10:15→18:28)
[2018-04-07] MEDS: Heparin 5000 units/ml inj SUBQ SCH ×2 (10:30→21:53)
[2018-04-07 12:00] VITALS: BP 97/45
--- NOTE | 2018-04-07 13:30 | Consultation ---
History of Present Illness General Date patient seen: Apr 07, 2018 Time patient seen: 01:00 Chief Complaint: General Complaint Referring physician: HILL BROOKS Reason for Consultation: B/L Heel ulcerations Present Illness Allergies: Coded Allergies: No Known Allergies (Unverified , 05/30/17) Medication History Scheduled Amlodipine Besylate* (Amlodipine Besylate*), 5 MG PO BID, (Reported) Aspirin* (Aspir 81*), 81 MG ORAL DAILY, (Reported) Cholecalciferol (Vitamin D3)* (Vitamin D*), 1,000 UNIT ORAL DAILY, (Reported) Divalproex Sodium* (Depakote Er*), 250 MG ORAL TID, (Reported) Hydralazine Hcl* (Hydralazine Hcl*), 25 MG PO QID, (Reported) Labetalol Hcl* (Normodyne*), 400 MG PO EVERY 12 HOURS, (Reported) Levetiracetam* (Levetiracetam*), 500 MG PO BID, (Reported) Levothyroxine Sodium* (Levothyroxine Sodium*), 125 MCG PO DAILY, (Reported) Methoxy Peg-Epoetin Beta (Mircera), 75 MCG IJ Q2WKS ON 3RD HD, (Reported) Minoxidil* (Loniten*), 5 MG PO DAILY, (Reported) Tamsulosin Hcl (Tamsulosin Hcl*), 0.4 MG PO BEDTIME, (Reported) Vitamin B Cmplx/Vit C/Folic AC (Nephro-Kecia Tablet), 1 TAB PO BID, (Reported) Patient History Healthcare decision maker N Resuscitation status Advanced Directive on File Physical Exam Last 24 Hour Vital Signs Date Time Temp Pulse Resp B/P (MAP) Pulse Ox O2 Delivery O2 Flow Rate FiO2 04/07/18 12:00 97.6 64 18 97/45 (62) 98 04/07/18 10:15 66 133/46 04/07/18 10:14 133/46 04/07/18 10:14 66 133/46 04/07/18 10:13 133/46 04/07/18 09:00 Room Air 04/07/18 08:00 97.1 66 18 133/46 (75) 99 04/07/18 07:41 65 04/07/18 04:00 63 04/07/18 04:00 97.3 67 17 139/44 (75) 100 04/07/18 00:00 97.0 69 17 121/50 (73) 100 04/07/18 00:00 66 04/06/18 22:22 86 130/56 04/06/18 22:18 130/56 04/06/18 22:17 86 130/56 04/06/18 21:00 Room Air 04/06/18 20:00 86 04/06/18 20:00 97.0 96 18 139/56 (83) 99 04/06/18 16:00 97.1 65 20 121/57 (78) 100 04/06/18 16:00 68 Intake and Output 04/06/18 04/07/18 18:59 06:59 Intake Total 510 ml Balance 510 ml Intake Oral 110 ml Free Water 30 ml IV Total 260 ml Tube Feeding 110 ml # Voids 1 # Bowel Movements 1 Laboratory Tests Test 04/07/18 06:06 White Blood Count 9.3 K/UL (4.8-10.8) Red Blood Count 5.17 M/UL (4.70-6.10) Hemoglobin 14.1 G/DL (14.2-18.0) L Hematocrit 46.6 % (42.0-52.0) Mean Corpuscular Volume 90 FL (80-99) Mean Corpuscular Hemoglobin 27.3 PG (27.0-31.0) Mean Corpuscular Hemoglobin Concent 30.3 G/DL (32.0-36.0) L Red Cell Distribution Width 19.7 % (11.6-14.8) H Platelet Count 204 K/UL (150-450) Mean Platelet Volume 7.7 FL (6.5-10.1) Neutrophils (%) (Auto) 75.5 % (45.0-75.0) H Lymphocytes (%) (Auto) 10.0 % (20.0-45.0) L Monocytes (%) (Auto) 6.0 % (1.0-10.0) Eosinophils (%) (Auto) 8.0 % (0.0-3.0) H Basophils (%) (Auto) 0.5 % (0.0-2.0) Sodium Level 137 MMOL/L (136-145) Potassium Level 4.1 MMOL/L (3.5-5.1) Chloride Level 102 MMOL/L (98-107) Carbon Dioxide Level 28 MMOL/L (21-32) Anion Gap 7 mmol/L (5-15) Blood Urea Nitrogen 29 mg/dL (7-18) H Creatinine 4.0 MG/DL (0.55-1.30) H Estimat Glomerular Filtration Rate mL/min (>60) Glucose Level 207 MG/DL (74-106) H Calcium Level 9.2 MG/DL (8.5-10.1) Height (Feet): 5 Height (Inches): 8.00 Weight (Pounds): 159 Medications Current Medications Medications (Trade) Dose Ordered Sig/Yamilka Route PRN Reason Start Time Stop Time Status Last Admin Dose Admin Amlodipine Besylate (Norvasc) 5 mg Q12HR GT 04/06/18 21:00 05/06/18 20:59 04/07/18 10:14 Aspirin (ASA) 81 mg DAILY GT 04/07/18 09:00 05/07/18 08:59 04/07/18 10:14 Divalproex Sodium (Depakote Sprinkles) 250 mg Q8HR GT 04/06/18 22:00 05/06/18 21:59 04/07/18 06:17 Heparin Sodium (Porcine) (Heparin 5000 units/ml) 5,000 units EVERY 12 HOURS SUBQ 04/05/18 09:00 05/05/18 08:59 04/07/18 10:30 Hydralazine HCl (Apresoline) 25 mg QID GT 04/06/18 21:00 05/04/18 22:59 04/07/18 10:14 Labetalol HCl (Normodyne) 400 mg EVERY 12 HOURS GT 04/06/18 21:00 05/04/18 22:59 04/07/18 10:15 Levetiracetam (Keppra) 500 mg Q12HR GT 04/06/18 21:00 05/06/18 20:59 04/07/18 10:14 Levothyroxine Sodium (Synthroid) 125 mcg DAILY@0630 GT 04/07/18 06:30 05/05/18 06:29 04/07/18 06:17 Minoxidil (Loniten) 5 mg DAILY GT 04/07/18 09:00 05/05/18 08:59 04/07/18 10:13 Tamsulosin HCl (Flomax) 0.4 mg BEDTIME ORAL 04/04/18 23:00 05/04/18 22:59 04/05/18 20:39 Vitamin B Complex/ Vit C/Folic Acid (Nephrovite) 1 tab BID GT 04/07/18 09:00 05/05/18 08:59 04/07/18 10:15 Vitamin D (Vitamin D) 1,000 intlu DAILY GT 04/07/18 09:00 05/05/18 08:59 04/07/18 10:14 Objective Narrative Focused: B/L LE exam: - Right foot: +1/4 DP/PT pulses. Plantar medial heel ulceration is noted, approx 3.0cm x 3.0 cm with overlying eschar, UTD depth of wound, (-) active purulent drainage, normal temp differential, (-) mal-odor - Left foot: +1/4 DP/PT pulses. Plantar medial heel ulceration is noted, approx 3.5cm x 3.5cm with overlying eschar, UTD depth of wound, (-) active purulent drainage, normal temp differential, (-) mal-odor Assessment/Plan Assessment/Plan A: - B/L Heel ulcerations, stable. - S/p GT placement - DM - ESRD P: - Pt seen and evaluated. - chart reviewed. - Temp, 97.6 - WBC, 9.3 - ESR, CRP pending. - B/L Foot and MRI pending. - Arterial U/S pending. - Daily wound care order submitted. - B/L LE Pravalon boots. - IV ABx. - No acute surgical intervention required at this time. Will await official imaging studies. - Podiatry will cont to monitor. Dequan Spivey DPM Apr 07, 2018 13:30
--- NOTE | 2018-04-07 13:44 | Nephrology Progress Note ---
Assessment/Plan Plan New PEG in. Dietary to recommend. ESRD - HD to follow. Expect DC tonight or early am. Subjective Subjective Confused. Post PEG. Objective Objective Last 24 Hour Vital Signs Date Time Temp Pulse Resp B/P (MAP) Pulse Ox O2 Delivery O2 Flow Rate FiO2 04/07/18 12:00 97.6 64 18 97/45 (62) 98 04/07/18 10:15 66 133/46 04/07/18 10:14 133/46 04/07/18 10:14 66 133/46 04/07/18 10:13 133/46 04/07/18 09:00 Room Air 04/07/18 08:00 97.1 66 18 133/46 (75) 99 04/07/18 07:41 65 04/07/18 04:00 63 04/07/18 04:00 97.3 67 17 139/44 (75) 100 04/07/18 00:00 97.0 69 17 121/50 (73) 100 04/07/18 00:00 66 04/06/18 22:22 86 130/56 04/06/18 22:18 130/56 04/06/18 22:17 86 130/56 04/06/18 21:00 Room Air 04/06/18 20:00 86 04/06/18 20:00 97.0 96 18 139/56 (83) 99 04/06/18 16:00 97.1 65 20 121/57 (78) 100 04/06/18 16:00 68 Intake and Output 04/06/18 04/07/18 18:59 06:59 Intake Total 510 ml Balance 510 ml Intake Oral 110 ml Free Water 30 ml IV Total 260 ml Tube Feeding 110 ml # Voids 1 # Bowel Movements 1 Laboratory Tests 04/07/18 06:06: White Blood Count 9.3, Red Blood Count 5.17, Hemoglobin 14.1L, Hematocrit 46.6, Mean Corpuscular Volume 90, Mean Corpuscular Hemoglobin 27.3, Mean Corpuscular Hemoglobin Concent 30.3L, Red Cell Distribution Width 19.7H, Platelet Count 204 , Mean Platelet Volume 7.7, Neutrophils (%) (Auto) 75.5H, Lymphocytes (%) (Auto ) 10.0L, Monocytes (%) (Auto) 6.0, Eosinophils (%) (Auto) 8.0H, Basophils (%) ( Auto) 0.5, Erythrocyte Sedimentation Rate [Pending], Sodium Level 137, Potassium Level 4.1, Chloride Level 102, Carbon Dioxide Level 28, Anion Gap 7, Blood Urea Nitrogen 29H, Creatinine 4.0H, Estimat Glomerular Filtration Rate , Glucose Level 207H, Calcium Level 9.2, C-Reactive Protein, Quantitative [Pending ] Height (Feet): 5 Height (Inches): 8.00 Weight (Pounds): 159 Objective CV RR Lungs CTA Abd SNT. BS + Edda Paz MD Apr 07, 2018 13:43
[2018-04-07] MEDS ORDERED: HYDRALAZINE HCL25 M1 GT (13:48)
[2018-04-07] MEDS ORDERED: NORMODYNE100 MG GT (13:48)
[2018-04-07] MEDS ORDERED: KEPPRA LIQ100 MG/1 M GT (13:48)
[2018-04-07] MEDS ORDERED: NORVASC5 MG GT (13:48)
[2018-04-07] MEDS ORDERED: HYTRIN1 MG ORAL (13:48)
[2018-04-07] MEDS ORDERED: LEVOTHYROXINE125 MCG GT (13:48)
[2018-04-07] MEDS ORDERED: ASPIRIN81 MG GT (13:48)
[2018-04-07] MEDS ORDERED: HEPARIN SO5000 UNIT2 SUBQ (13:48)
[2018-04-07] MEDS ORDERED: DEPAKOTE SPRIN125 M1 GT (13:48)
[2018-04-07] MEDS ORDERED: NEPHROVITE1 TAB GT (13:48)
[2018-04-07] MEDS ORDERED: LONITEN2.5 MG GT (13:48)
[2018-04-07] MEDS ORDERED: VITAMIN D1000 UNI1 GT (13:48)
--- NOTE | 2018-04-07 16:00 | NUR ---
NURSE NOTES: @16:00 Made call to EDYTA Cagle for discharge planning. Made charge nurse aware of discharge plan to [facility]. @18:00 Dressing changes done and abdominal dressing change done. Patient had pericare done with Nepro running at 40ml/hr. Patient tolerate feeding with no residual. Bowel Sounds present in 4 quadrants. @1900 No new updates on discharge plan. Endorse to date night caregiver nurse.
--- NOTE | 2018-04-07 16:11 | NUR ---
NURSE NOTES: Received orders for DC to SNF: [facility] for chicken picker time of 1pm. @12:30pm: Gave report to AASHISH Douglass at [facility]. Transport arrived at 1pm. When blood pressure was rechecked it 175 SBP. Scheduled blood pressure medication Hydralazine by mouth was given. After 45 minutes, the transporters states a Will Call and to call when blood pressure is lowered. @2:30pm Blood pressure was 145/85. Called dispatcher. Estimated arrival at 3:30pm @3:30: Transporters arrived and took patient to [facility]. Patient had blue blanket and upper denture. All belongings of patient were sent to the SNF facility. Patient ID band was removed. Patient had no heart monitor on and no IV heplock. Patient left at 3:55pm. Addendum: 04/07/18 at 2013 by Sergio Soto RN error, wrong patient. LASHON
--- NOTE | 2018-04-07 16:28 | Diagnostic Imaging Report ---
EXAM: XR Left Foot, 2 Views CLINICAL HISTORY: OSTEOMY TECHNIQUE: Frontal and lateral views of the left foot. COMPARISON: No relevant prior studies available. FINDINGS: Bones/joints: No acute fracture. Plantar and posterior calcaneal spurs. Osteopenia. Probable old fractures of the third and fourth proximal phalanges. Possibly coalition or ankylosis in the mid foot region. Soft tissues: Soft tissue edema. Vasculature: Vascular calcifications. IMPRESSION: No acute fracture.
--- NOTE | 2018-04-07 16:29 | Diagnostic Imaging Report ---
EXAM: XR Right Foot, 2 Views CLINICAL HISTORY: OSTEOMY TECHNIQUE: Frontal and lateral views of the right foot. COMPARISON: No relevant prior studies available. FINDINGS: Bones/joints: No acute fracture. Osteopenia. 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 Osteopenia. Posterior calcaneal spur. Soft tissues: Soft tissue swelling. Vasculature: Vascular calcifications. IMPRESSION: No acute fracture.
--- NOTE | 2018-04-07 18:18 | Surgery Progress Note ---
Surgery Progress Note Subjective Additional Comments s/p PEG. doing well. pending HD. Objective Last 24 Hour Vital Signs Date Time Temp Pulse Resp B/P (MAP) Pulse Ox O2 Delivery O2 Flow Rate FiO2 04/07/18 13:00 97/45 04/07/18 12:00 97.6 64 18 97/45 (62) 98 04/07/18 11:45 62 04/07/18 10:15 66 133/46 04/07/18 10:14 133/46 04/07/18 10:14 66 133/46 04/07/18 10:13 133/46 04/07/18 09:00 Room Air 04/07/18 08:00 97.1 66 18 133/46 (75) 99 04/07/18 07:41 65 04/07/18 04:00 63 04/07/18 04:00 97.3 67 17 139/44 (75) 100 04/07/18 00:00 97.0 69 17 121/50 (73) 100 04/07/18 00:00 66 04/06/18 22:22 86 130/56 04/06/18 22:18 130/56 04/06/18 22:17 86 130/56 04/06/18 21:00 Room Air 04/06/18 20:00 86 04/06/18 20:00 97.0 96 18 139/56 (83) 99 I&O Intake and Output 04/06/18 04/07/18 19:00 07:00 Intake Total 510 ml Balance 510 ml Intake Oral 110 ml Free Water 30 ml IV Total 260 ml Tube Feeding 110 ml # Voids 1 # Bowel Movements 1 Dressing: other Wound: other Drains: other Cardiovascular: RSR Respiratory: clear Abdomen: soft, present bowel sounds, other, non-distended Extremities: other Laboratory Tests Test 04/07/18 06:06 White Blood Count 9.3 K/UL (4.8-10.8) Red Blood Count 5.17 M/UL (4.70-6.10) Hemoglobin 14.1 G/DL (14.2-18.0) L Hematocrit 46.6 % (42.0-52.0) Mean Corpuscular Volume 90 FL (80-99) Mean Corpuscular Hemoglobin 27.3 PG (27.0-31.0) Mean Corpuscular Hemoglobin Concent 30.3 G/DL (32.0-36.0) L Red Cell Distribution Width 19.7 % (11.6-14.8) H Platelet Count 204 K/UL (150-450) Mean Platelet Volume 7.7 FL (6.5-10.1) Neutrophils (%) (Auto) 75.5 % (45.0-75.0) H Lymphocytes (%) (Auto) 10.0 % (20.0-45.0) L Monocytes (%) (Auto) 6.0 % (1.0-10.0) Eosinophils (%) (Auto) 8.0 % (0.0-3.0) H Basophils (%) (Auto) 0.5 % (0.0-2.0) Erythrocyte Sedimentation Rate 42 MM/HR (0-20) H Sodium Level 137 MMOL/L (136-145) Potassium Level 4.1 MMOL/L (3.5-5.1) Chloride Level 102 MMOL/L (98-107) Carbon Dioxide Level 28 MMOL/L (21-32) Anion Gap 7 mmol/L (5-15) Blood Urea Nitrogen 29 mg/dL (7-18) H Creatinine 4.0 MG/DL (0.55-1.30) H Estimat Glomerular Filtration Rate mL/min (>60) Glucose Level 207 MG/DL (74-106) H Calcium Level 9.2 MG/DL (8.5-10.1) C-Reactive Protein, Quantitative 12.7 mg/dL (0.00-0.90) H Plan Problems: (1) Severe malnutrition Assessment & Plan: Failure to thrive resulting in loss of weight, weakness, and now developing 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 Stable dry eschar L heel (L)2.6cm x (W)3.8cm.Hyperpigmented skin periwound.Sacrum is intact without redness but pt verbalized tenderness when sacrococcygeal area palpated.Moisture barrier applied and covered with Optifoam drsg. s/p PEG Nutritional optimization necessary to help with wound healing Swab R and L heels with Betadine.Cover with Optifoam Daily and prn. Off-load Heels with Pillow. Apply Moisture Barrier to Sacrum. Cover with Optifoam drsg.Change every 7 days and prn. Reposition at least every 2hours or as tolerated. Support surface mattress. thank you will follow with Demarco Gamboa Apr 07, 2018 18:18
[2018-04-07 18:20] VITALS: BP 144/57
--- NOTE | 2018-04-07 19:30 | NUR ---
NURSE NOTES: Report received from Sergio ZENDEJAS. Pt is awake, alert, and oriented x1. Pt is on room air and breathing is even and unlabored. No acute distress noted. IV site is asymptomatic, patent, and intact.Bed placed in lowest position with brake engaged, side rails up x2, and bed alarm on. Will continue to monitor and follow plan of care.
[2018-04-07 20:00] VITALS: BP 146/50
--- NOTE | 2018-04-07 20:27 | NUR ---
HAND-OFF: Report given to AASHISH Mccord. Endorse plan of discharge and care.
[2018-04-07] MEDS: Tamsulosin 0.4mg cap ORAL SCH (21:54)
[2018-04-08] VITALS: BP 106/47
[2018-04-08 04:00] VITALS: BP 128/49
[2018-04-08] MEDS: Levothyroxine 125mcg tab GT SCH (05:39)
[2018-04-08] MEDS: Depakote 125mg Sprinkles GT SCH ×3 (05:39→22:36)
--- NOTE | 2018-04-08 07:16 | NUR ---
HAND-OFF: Report given to Sergio ZENDEJAS.
--- NOTE | 2018-04-08 07:30 | NUR ---
NURSE NOTES: Report received from Suri ZENDEJAS. Pt is AAO x2. Pt is on room air and breathing is even and unlabored. No acute distress noted. Patient denies pain. IV site is asymptomatic, patent, and intact. Bed placed in lowest position with brake engaged, side rails up x2, and bed alarm on. Will continue to monitor and follow plan of care.
[2018-04-08 08:00] VITALS: BP 142/53
--- NOTE | 2018-04-08 08:01 | General Progress Note ---
Assessment/Plan Problem List: (1) HTN (hypertension) ICD Codes: I10 - Essential (primary) hypertension SNOMED: 54954833 (2) Hypothyroidism ICD Codes: E03.9 - Hypothyroidism, unspecified SNOMED: 26369477 (3) ESRD (end stage renal disease) ICD Codes: N18.6 - End stage renal disease SNOMED: 91855932 (4) PEG (percutaneous endoscopic gastrostomy) adjustment/replacement/removal ICD Codes: Z43.1 - Encounter for attention to gastrostomy SNOMED: 475857027, 590039688 Assessment/Plan s/p GT placement GTF GT care dc planning per primary team Subjective ROS Limited/Unobtainable: No Allergies: Coded Allergies: No Known Allergies (Unverified , 05/30/17) Objective Last 24 Hour Vital Signs Date Time Temp Pulse Resp B/P (MAP) Pulse Ox O2 Delivery O2 Flow Rate FiO2 04/08/18 04:00 63 04/08/18 04:00 96.4 63 18 128/49 (75) 100 04/08/18 00:00 58 04/08/18 00:00 97.6 64 18 106/47 (66) 100 04/07/18 21:54 62 146/50 04/07/18 21:54 146/50 04/07/18 21:54 62 146/50 04/07/18 21:00 Room Air 04/07/18 20:00 97.4 62 18 146/50 (82) 98 04/07/18 20:00 64 04/07/18 18:28 144/57 04/07/18 18:20 65 144/57 (86) 04/07/18 13:00 97/45 04/07/18 12:00 97.6 64 18 97/45 (62) 98 04/07/18 11:45 62 04/07/18 10:15 66 133/46 04/07/18 10:14 133/46 04/07/18 10:14 66 133/46 04/07/18 10:13 133/46 04/07/18 09:00 Room Air 04/07/18 08:00 97.1 66 18 133/46 (75) 99 Intake and Output 04/07/18 04/08/18 19:00 07:00 # Voids 2 1 Height (Feet): 5 Height (Inches): 8.00 Weight (Pounds): 146 General Appearance: no apparent distress EENT: normal ENT inspection Neck: supple Cardiovascular: normal rate Respiratory/Chest: decreased breath sounds Abdomen: normal bowel sounds, non tender, soft Extremities: non-tender Homero Mcdaniel MD Apr 08, 2018 08:00
[2018-04-08] MEDS: levETIRAcetam 500mg/5ml Liquid GT SCH ×2 (09:44→22:35)
[2018-04-08] MEDS: Aspirin Baby 81mg GT SCH (09:44)
[2018-04-08] MEDS: Terazosin 1mg cap ORAL SCH (09:44)
[2018-04-08] MEDS: Nephrovite tab (Rena-Vite) GT SCH ×2 (09:44→18:40)
[2018-04-08] MEDS: HydrALAZINE 25mg tab GT SCH ×4 (09:44→22:37)
[2018-04-08] MEDS: Minoxidil 2.5mg tab GT SCH (09:44)
[2018-04-08] MEDS: Vitamin D 1000 IU Tab GT SCH (09:50)
[2018-04-08] MEDS: Heparin 5000 units/ml inj SUBQ SCH ×2 (09:53→22:38)
--- NOTE | 2018-04-08 11:19 | Cardiology Report ---
APPROVED REPORT EKG Measurement Heart [id number] Sinus rhythm with 1st degree AV block Septal infarct, age undetermined Abnormal ECG
[2018-04-08 12:00] VITALS: BP 100/45
--- NOTE | 2018-04-08 12:10 | Nephrology Progress Note ---
Assessment/Plan Plan New PEG in. Dietary to recommend. ESRD - HD to follow. HD tomorrow then DC Subjective Subjective Confused. Post PEG. Patient not DC'ed to SNF. Not accepting during the weekend. Objective Objective Last 24 Hour Vital Signs Date Time Temp Pulse Resp B/P (MAP) Pulse Ox O2 Delivery O2 Flow Rate FiO2 04/08/18 09:50 72 142/53 04/08/18 09:44 142/53 04/08/18 09:44 142/53 04/08/18 09:44 72 142/53 04/08/18 08:00 97.5 72 18 142/53 (82) 100 04/08/18 04:00 63 04/08/18 04:00 96.4 63 18 128/49 (75) 100 04/08/18 00:00 58 04/08/18 00:00 97.6 64 18 106/47 (66) 100 04/07/18 21:54 62 146/50 04/07/18 21:54 146/50 04/07/18 21:54 62 146/50 04/07/18 21:00 Room Air 04/07/18 20:00 97.4 62 18 146/50 (82) 98 04/07/18 20:00 64 04/07/18 18:28 144/57 04/07/18 18:20 65 144/57 (86) 04/07/18 13:00 97/45 Intake and Output 04/07/18 04/08/18 19:00 07:00 # Voids 2 1 Height (Feet): 5 Height (Inches): 8.00 Weight (Pounds): 146 Objective CV RR Lungs CTA Abd SNT. BS + New PEG Edda Chavez MD Apr 08, 2018 12:10
[2018-04-08] MEDS ORDERED: Heparin Sod 1000 units/ml 10ml IV PRN (12:30)
[2018-04-08 15:59] VITALS: BP 132/47
[2018-04-08 20:00] VITALS: BP 139/44
--- NOTE | 2018-04-08 20:45 | NUR ---
HAND-OFF: Report given to AASHISH Newman. Patient is resting in bed.
--- NOTE | 2018-04-08 20:45 | NUR ---
NURSE NOTES: Received report from Jessica Soto RN. Patient is asleep in bed with no s/s of acute distress noted. A/O x1. Sinus rhythm with 1st degree AVB noted on school lunch monitor. Saturating well on room air. Receiving Nepro @ 40 cc/hr via GT and tolerating well. Right AC 20g IV saline lock, intact and patent. Left upper arm AV shunt noted. Bed locked in lowest position with side rails up x3. Call light left within reach. Will continue to monitor.
[2018-04-08] MEDS: Tamsulosin 0.4mg cap ORAL SCH (22:36)
[2018-04-09] VITALS: BP 124/40
[2018-04-09 04:00] VITALS: BP 143/45
[2018-04-09] MEDS: Depakote 125mg Sprinkles GT SCH ×3 (06:21→21:39)
[2018-04-09] MEDS: Levothyroxine 125mcg tab GT SCH (06:25)
--- NOTE | 2018-04-09 07:10 | NUR ---
HAND-OFF: Report given to Merlin Cat RN.
--- NOTE | 2018-04-09 07:30 | NUR ---
NURSE NOTES: Spoke with Kim ZENDEJAS. Pt is awake, alert, confused, oriented to name only. On room air with no respiratory distress. No signs/symptoms of pain present. Left AV shunt present on upper arm for dialysis, scheduled to have HD at bedside today. Peripheral IV access on right AC #20G, saline lock, patent/intact. Skin has bilateral heel dressings, with bilateral heel protectors on, dressings dry/intact, will change/assess during my shift, and as needed. Pt is on fall and seizure precautions, bed in lowest position, three side rails up and side rails padded, call light is within easy reach, brakes engaged, alarm on. GT feeding, on Nepro at 40/hour/goal, pt tolerating well with no residual, no s/s of nausea/vomiting present. PT is scheduled for MRI of bilateral feet today. Will continue with plan of care.
[2018-04-09 07:41] LABS: BASOPHILS % (AUTO) 0.6 % (0.0-2.0); EOSINOPHILS % (AUTO) 14.3 % (0.0-3.0); HEMATOCRIT 41.9 % (42.0-52.0); LYMPHOCYTES % (AUTO) 11.8 % (20.0-45.0); MEAN CORPUSCULAR VOLUME 89 FL (80-99); MONOCYTES % (AUTO) 9.4 % (1.0-10.0); NEUTROPHILS % (AUTO) 63.9 % (45.0-75.0); PLATELET COUNT 215 K/UL (150-450); RED CELL DISTRIBUTION WIDTH 19.4 % (11.6-14.8); WHITE BLOOD COUNT 8.3 K/UL (4.8-10.8)
[2018-04-09 07:54] LABS: ANION GAP 7 mmol/L (5-15); BLOOD UREA NITROGEN 49 mg/dL (7-18); CALCIUM 9.2 MG/DL (8.5-10.1); CARBON DIOXIDE 28 MMOL/L (21-32); CHLORIDE 101 MMOL/L (98-107); CREATININE 5.9 MG/DL (0.55-1.30); POTASSIUM 4.3 MMOL/L (3.5-5.1); SODIUM 136 MMOL/L (136-145)
[2018-04-09 08:00] VITALS: BP 134/44
--- NOTE | 2018-04-09 08:38 | NUR ---
PT RECEIVING DIALYSIS, WILL ATTEMPT MRI BILATERAL HEELS LATER IN DAY. TJB 08:15
[2018-04-09] MEDS: Minoxidil 2.5mg tab GT SCH (09:00)
[2018-04-09] MEDS: Heparin 5000 units/ml inj SUBQ SCH ×2 (09:00→21:42)
[2018-04-09] MEDS: Terazosin 1mg cap ORAL SCH (09:00)
[2018-04-09] MEDS: HydrALAZINE 25mg tab GT SCH ×4 (09:00→21:40)
[2018-04-09] MEDS: Aspirin Baby 81mg GT SCH (09:00)
[2018-04-09] MEDS ORDERED: LORazepam Inj 2mg/ml 1ml IV SCH (09:30)
--- NOTE | 2018-04-09 09:42 | Nephrology Progress Note ---
Assessment/Plan Plan New PEG in. Dietary to recommend. MRI of ankles, then DC to SNF Subjective Subjective Confused. Post PEG. On HD now .Patient not DC'ed to SNF. Not accepting during the weekend. Objective Objective Last 24 Hour Vital Signs Date Time Temp Pulse Resp B/P (MAP) Pulse Ox O2 Delivery O2 Flow Rate FiO2 04/09/18 08:00 97.8 68 18 134/44 (74) 98 04/09/18 08:00 67 04/09/18 04:00 98.6 71 18 143/45 (77) 98 04/09/18 03:53 68 04/09/18 00:00 98.9 67 18 124/40 (68) 98 04/08/18 23:53 68 04/08/18 22:37 139/44 04/08/18 22:37 71 139/44 04/08/18 22:36 71 139/44 04/08/18 21:00 Room Air 04/08/18 20:01 71 04/08/18 20:00 98.6 71 18 139/44 (75) 99 04/08/18 18:40 132/47 04/08/18 15:59 98.0 65 18 132/47 (75) 100 04/08/18 15:21 64 04/08/18 13:00 100/45 04/08/18 12:00 98.3 59 18 100/45 (63) 100 04/08/18 11:33 60 04/08/18 09:50 72 142/53 04/08/18 09:44 142/53 04/08/18 09:44 142/53 04/08/18 09:44 72 142/53 Intake and Output 04/08/18 04/09/18 19:00 07:00 Intake Total 40 ml 360 ml Output Total 0 ml Balance 40 ml 360 ml Free Water 40 ml Tube Feeding 40 ml 320 ml Output Urine Total 0 ml # Voids 1 1 Laboratory Tests 04/09/18 06:10: White Blood Count 8.3, Red Blood Count 4.70, Hemoglobin 13.0L, Hematocrit 41.9L , Mean Corpuscular Volume 89, Mean Corpuscular Hemoglobin 27.6, Mean Corpuscular Hemoglobin Concent 31.0L, Red Cell Distribution Width 19.4H, Platelet Count 215, Mean Platelet Volume 7.6, Neutrophils (%) (Auto) 63.9, Lymphocytes (%) (Auto) 11.8L, Monocytes (%) (Auto) 9.4, Eosinophils (%) (Auto) 14.3H, Basophils (%) (Auto) 0.6, Sodium Level 136, Potassium Level 4.3, Chloride Level 101, Carbon Dioxide Level 28, Anion Gap 7, Blood Urea Nitrogen 49H, Creatinine 5.9H, Estimat Glomerular Filtration Rate , Glucose Level 146H, Calcium Level 9.2 Height (Feet): 5 Height (Inches): 8.00 Weight (Pounds): 150 Objective CV RR Lungs CTA Abd SNT. BS + Edda Paz MD Apr 09, 2018 09:42
[2018-04-09] MEDS: levETIRAcetam 500mg/5ml Liquid GT SCH ×2 (10:16→21:00)
[2018-04-09] MEDS: Vitamin D 1000 IU Tab GT SCH (10:16)
[2018-04-09] MEDS: Nephrovite tab (Rena-Vite) GT SCH ×2 (10:16→18:59)
--- NOTE | 2018-04-09 11:15 | GI Progress Note ---
Assessment/Plan Problems: (1) Severe malnutrition ICD Codes: E43 - Unspecified severe protein-calorie malnutrition SNOMED: 44574568 (2) GERD (gastroesophageal reflux disease) ICD Codes: K21.9 - Gastro-esophageal reflux disease without esophagitis SNOMED: 150789495 (3) Dementia ICD Codes: F03.90 - Unspecified dementia without behavioral disturbance SNOMED: 93546010 (4) Anemia ICD Codes: D64.9 - Anemia, unspecified SNOMED: 820375264 (5) Constipation ICD Codes: K59.00 - Constipation, unspecified SNOMED: 62137138 (6) Encounter for generalized patient complaints ICD Codes: Z00.8 - Encounter for other general examination SNOMED: 650897121 (7) Dehydration ICD Codes: E86.0 - Dehydration SNOMED: 57029269 (8) PEG (percutaneous endoscopic gastrostomy) adjustment/replacement/removal ICD Codes: Z43.1 - Encounter for attention to gastrostomy SNOMED: 377418233, 308471025 Status: stable Status Narrative Discussed with Dr. Mcdaniel. Assessment/Plan s/p GT placement GTF per RD to goal GT care bowel regime dc planning per primary team The patient was seen and examined at bedside and all new and available data was reviewed in the patients chart. I agree with the above findings, impression and plan. (Patient seen earlier today. Signature stamp does not reflect patient encounter time.). - Homero Mcdaniel MD Subjective Gastrointestinal/Abdominal: Reports: no symptoms Objective Last 24 Hour Vital Signs Date Time Temp Pulse Resp B/P (MAP) Pulse Ox O2 Delivery O2 Flow Rate FiO2 04/09/18 09:00 Room Air 04/09/18 08:00 97.8 68 18 134/44 (74) 98 04/09/18 08:00 67 04/09/18 04:00 98.6 71 18 143/45 (77) 98 04/09/18 03:53 68 04/09/18 00:00 98.9 67 18 124/40 (68) 98 04/08/18 23:53 68 04/08/18 22:37 139/44 04/08/18 22:37 71 139/44 04/08/18 22:36 71 139/44 04/08/18 21:00 Room Air 04/08/18 20:01 71 04/08/18 20:00 98.6 71 18 139/44 (75) 99 04/08/18 18:40 132/47 04/08/18 15:59 98.0 65 18 132/47 (75) 100 04/08/18 15:21 64 04/08/18 13:00 100/45 04/08/18 12:00 98.3 59 18 100/45 (63) 100 04/08/18 11:33 60 Intake and Output 04/08/18 04/09/18 19:00 07:00 Intake Total 40 ml 360 ml Output Total 0 ml Balance 40 ml 360 ml Free Water 40 ml Tube Feeding 40 ml 320 ml Output Urine Total 0 ml # Voids 1 1 Laboratory Tests Test 04/09/18 06:10 White Blood Count 8.3 K/UL (4.8-10.8) Red Blood Count 4.70 M/UL (4.70-6.10) Hemoglobin 13.0 G/DL (14.2-18.0) L Hematocrit 41.9 % (42.0-52.0) L Mean Corpuscular Volume 89 FL (80-99) Mean Corpuscular Hemoglobin 27.6 PG (27.0-31.0) Mean Corpuscular Hemoglobin Concent 31.0 G/DL (32.0-36.0) L Red Cell Distribution Width 19.4 % (11.6-14.8) H Platelet Count 215 K/UL (150-450) Mean Platelet Volume 7.6 FL (6.5-10.1) Neutrophils (%) (Auto) 63.9 % (45.0-75.0) Lymphocytes (%) (Auto) 11.8 % (20.0-45.0) L Monocytes (%) (Auto) 9.4 % (1.0-10.0) Eosinophils (%) (Auto) 14.3 % (0.0-3.0) H Basophils (%) (Auto) 0.6 % (0.0-2.0) Sodium Level 136 MMOL/L (136-145) Potassium Level 4.3 MMOL/L (3.5-5.1) Chloride Level 101 MMOL/L (98-107) Carbon Dioxide Level 28 MMOL/L (21-32) Anion Gap 7 mmol/L (5-15) Blood Urea Nitrogen 49 mg/dL (7-18) H Creatinine 5.9 MG/DL (0.55-1.30) H Estimat Glomerular Filtration Rate mL/min (>60) Glucose Level 146 MG/DL (74-106) H Calcium Level 9.2 MG/DL (8.5-10.1) Height (Feet): 5 Height (Inches): 8.00 Weight (Pounds): 150 General Appearance: WD/WN, no apparent distress, alert Cardiovascular: normal rate Respiratory/Chest: normal breath sounds, no respiratory distress Abdominal Exam: normal bowel sounds, non tender, soft, GT site - Clean dry and intact Extremities: non-tender Carol An NP Apr 09, 2018 11:15
[2018-04-09 12:00] VITALS: BP 120/44
--- NOTE | 2018-04-09 12:33 | Consultation ---
History of Present Illness General Chief Complaint: General Complaint Referring physician: HILL BROOKS Reason for Consultation: B/L Heel ulcerations Present Illness HPI 83-year-old male, who is on dialysis and is severely malfunctioned. Im well familiar with this pt from the pt has dementia with behavioral disturbance and he receives Depakote. the pt is unable to participate answer the questions appropriately. poor memory Allergies: Coded Allergies: No Known Allergies (Unverified , 05/30/17) Medication History Scheduled Amlodipine Besylate (Norvasc), 5 MG GT Q12HR Amlodipine Besylate* (Amlodipine Besylate*), 5 MG PO BID, (Reported) Aspirin* (Aspir 81*), 81 MG ORAL DAILY, (Reported) Aspirin* (Aspirin*), 81 MG GT DAILY Cholecalciferol (Vitamin D3)* (Vitamin D*), 1,000 UNIT ORAL DAILY, (Reported) Cholecalciferol (Vitamin D3)* (Vitamin D*), 1,000 INTLU GT DAILY Divalproex Sodium (Divalproex Sodium), 250 MG GT Q8HR Divalproex Sodium* (Depakote Er*), 250 MG ORAL TID, (Reported) Heparin Sod (Porcine) (Heparin Sodium*), 5,000 UNITS SUBQ EVERY 12 HOURS Hydralazine Hcl* (Hydralazine Hcl*), 25 MG PO QID, (Reported) Hydralazine Hcl* (Hydralazine Hcl*), 25 MG GT QID Labetalol HCl (Labetalol HCl), 400 MG GT EVERY 12 HOURS Labetalol Hcl* (Normodyne*), 400 MG PO EVERY 12 HOURS, (Reported) Levetiracetam (Keppra), 500 MG GT Q12HR Levetiracetam* (Levetiracetam*), 500 MG PO BID, (Reported) Levothyroxine Sodium* (Levothyroxine Sodium*), 125 MCG PO DAILY, (Reported) Levothyroxine Sodium* (Levothyroxine Sodium*), 125 MCG GT DAILY@0630 Methoxy Peg-Epoetin Beta (Mircera), 75 MCG IJ Q2WKS ON 3RD HD, (Reported) Minoxidil (Minoxidil), 5 MG GT DAILY Minoxidil* (Loniten*), 5 MG PO DAILY, (Reported) Tamsulosin Hcl (Tamsulosin Hcl*), 0.4 MG PO BEDTIME, (Reported) Terazosin HCl (Terazosin HCl), 1 MG ORAL DAILY Vitamin B Cmplx/Vit C/Folic AC (Nephro-Kecia Tablet), 1 TAB PO BID, (Reported) Vitamin B Cmplx/Vit C/Folic AC (Nephro-Kecia Tablet), 1 TAB GT BID Patient History Healthcare decision maker N Resuscitation status Advanced Directive on File Past Medical/Surgical History Past Medical/Surgical History: (1) Encounter for generalized patient complaints (2) Constipation (3) Anemia (4) Dementia (5) GERD (gastroesophageal reflux disease) (6) Severe malnutrition (7) PEG (percutaneous endoscopic gastrostomy) adjustment/replacement/removal (8) Dehydration (9) ESRD (end stage renal disease) (10) Arthritis (11) Hypothyroidism (12) Chronic pancreatitis (13) Weakness (14) HTN (hypertension) (15) Colonoscopy planned Review of Systems Psychiatric: Reports: prior hx, anxiety, depressed feelings, emotional problems , hallucinations Physical Exam General Appearance: alert, confused, agitated Last 24 Hour Vital Signs Date Time Temp Pulse Resp B/P (MAP) Pulse Ox O2 Delivery O2 Flow Rate FiO2 04/09/18 09:00 Room Air 04/09/18 08:00 97.8 68 18 134/44 (74) 98 04/09/18 08:00 67 04/09/18 04:00 98.6 71 18 143/45 (77) 98 04/09/18 03:53 68 04/09/18 00:00 98.9 67 18 124/40 (68) 98 04/08/18 23:53 68 04/08/18 22:37 139/44 04/08/18 22:37 71 139/44 04/08/18 22:36 71 139/44 04/08/18 21:00 Room Air 04/08/18 20:01 71 04/08/18 20:00 98.6 71 18 139/44 (75) 99 04/08/18 18:40 132/47 04/08/18 15:59 98.0 65 18 132/47 (75) 100 04/08/18 15:21 64 04/08/18 13:00 100/45 Intake and Output 04/08/18 04/09/18 19:00 07:00 Intake Total 40 ml 360 ml Output Total 0 ml Balance 40 ml 360 ml Free Water 40 ml Tube Feeding 40 ml 320 ml Output Urine Total 0 ml # Voids 1 1 Laboratory Tests Test 04/09/18 06:10 White Blood Count 8.3 K/UL (4.8-10.8) Red Blood Count 4.70 M/UL (4.70-6.10) Hemoglobin 13.0 G/DL (14.2-18.0) L Hematocrit 41.9 % (42.0-52.0) L Mean Corpuscular Volume 89 FL (80-99) Mean Corpuscular Hemoglobin 27.6 PG (27.0-31.0) Mean Corpuscular Hemoglobin Concent 31.0 G/DL (32.0-36.0) L Red Cell Distribution Width 19.4 % (11.6-14.8) H Platelet Count 215 K/UL (150-450) Mean Platelet Volume 7.6 FL (6.5-10.1) Neutrophils (%) (Auto) 63.9 % (45.0-75.0) Lymphocytes (%) (Auto) 11.8 % (20.0-45.0) L Monocytes (%) (Auto) 9.4 % (1.0-10.0) Eosinophils (%) (Auto) 14.3 % (0.0-3.0) H Basophils (%) (Auto) 0.6 % (0.0-2.0) Sodium Level 136 MMOL/L (136-145) Potassium Level 4.3 MMOL/L (3.5-5.1) Chloride Level 101 MMOL/L (98-107) Carbon Dioxide Level 28 MMOL/L (21-32) Anion Gap 7 mmol/L (5-15) Blood Urea Nitrogen 49 mg/dL (7-18) H Creatinine 5.9 MG/DL (0.55-1.30) H Estimat Glomerular Filtration Rate mL/min (>60) Glucose Level 146 MG/DL (74-106) H Calcium Level 9.2 MG/DL (8.5-10.1) Height (Feet): 5 Height (Inches): 8.00 Weight (Pounds): 150 Medications Current Medications Medications (Trade) Dose Ordered Sig/Yamilka Route PRN Reason Start Time Stop Time Status Last Admin Dose Admin Amlodipine Besylate (Norvasc) 5 mg Q12HR GT 04/06/18 21:00 05/06/18 20:59 04/08/18 22:37 Aspirin (ASA) 81 mg DAILY GT 04/07/18 09:00 05/07/18 08:59 04/08/18 09:44 Divalproex Sodium (Depakote Sprinkles) 250 mg Q8HR GT 04/06/18 22:00 05/06/18 21:59 04/09/18 06:21 Heparin Sodium (Porcine) (Heparin 5000 units/ml) 5,000 units EVERY 12 HOURS SUBQ 04/05/18 09:00 05/05/18 08:59 04/08/18 22:38 Heparin Sodium (Porcine) (Heparin Sod 1000 units/ml 10ml) 2,000 unit ONCE PRN IV FOR HD USE ONLY 04/08/18 12:30 04/09/18 23:59 Hydralazine HCl (Apresoline) 25 mg QID GT 04/06/18 21:00 05/04/18 22:59 04/08/18 22:37 Labetalol HCl (Normodyne) 400 mg EVERY 12 HOURS GT 04/06/18 21:00 05/04/18 22:59 04/08/18 22:36 Levetiracetam (Keppra) 500 mg Q12HR GT 04/06/18 21:00 05/06/18 20:59 04/09/18 10:16 Levothyroxine Sodium (Synthroid) 125 mcg DAILY@0630 GT 04/07/18 06:30 05/05/18 06:29 04/09/18 06:25 Minoxidil (Loniten) 5 mg DAILY GT 04/07/18 09:00 05/05/18 08:59 04/08/18 09:44 Sodium Chloride 1,000 ml @ 500 mls/hr Q2H PRN IVLG sbp<90 during hd 04/08/18 12:30 04/09/18 23:59 Tamsulosin HCl (Flomax) 0.4 mg BEDTIME ORAL 04/04/18 23:00 05/04/18 22:59 04/08/18 22:36 Terazosin HCl (Hytrin) 1 mg DAILY GT 04/10/18 09:00 05/08/18 08:59 Vitamin B Complex/ Vit C/Folic Acid (Nephrovite) 1 tab BID GT 04/07/18 09:00 05/05/18 08:59 04/09/18 10:16 Vitamin D (Vitamin D) 1,000 intlu DAILY GT 04/07/18 09:00 05/05/18 08:59 04/09/18 10:16 Assessment/Plan Problem List: (1) Dementia with behavioral disturbance ICD Codes: F03.91 - Unspecified dementia with behavioral disturbance SNOMED: 9068942837014 Assessment/Plan depakote 250mg po tid zyprexa 5mg qhs prn Pravin Humphries MD Apr 09, 2018 12:33
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
--- NOTE | 2018-04-09 14:04 | NUR ---
WILL REATTEMPT MRI EXAM TOMORROW WITHOUT SEDATION. DR. STANLEY HAS BEEN INFORMED. TJ 14:01
--- NOTE | 2018-04-09 14:12 | Diagnostic Imaging Report ---
APPROVED REPORT CPT Code: 14889 Symptoms Non-healing Ulcer : Bilaterally RIGHT LEG: Common femoral artery waveform analysis is within normal limits at rest. Color flow duplex sonography reveals calcification throughout the superficial femoral and popliteal arteries. There is no evidence of significant stenosis or occlusion within these segments. The tibioperoneal trunk was not well visualized. The distal posterior and dorsalis pedis arteries are also mildly calcified. Doppler tibial artery waveform analysis is compatible with moderate ischemia at rest. LEFT LEG: Common femoral artery waveform analysis is within normal limits at rest. Color flow duplex sonography reveals calcification throughout the superficial femoral artery. A moderate (50-60%) stenosis is seen in the distal superficial femoral tibial artery. The popliteal artery was patent. The tibioperoneal trunk was not well visualized. The distal posterior and dorsalis pedis arteries are also mildly calcified. Doppler tibial artery waveform analysis is compatible with moderate ischemia at rest.
[2018-04-09 16:00] VITALS: BP 147/63
--- NOTE | 2018-04-09 17:57 | Podiatric Progress Note ---
Assessment/Plan Patient Enrike Juarez is a 83 year old male who was admitted on Apr 04, 2018 at 17:32 with Assessment/Plan A: - B/L Heel ulcerations, stable. - S/p GT placement - DM - ESRD P: - Pt seen and evaluated. - chart reviewed. - Temp, 96.4 - WBC, 8.3 - ESR, CRP pending. - Spoke with business process architect today, pt unable to complete study secondary to increased motion of B/L LE. Per tech will re-attempt tomorrow. - Arterial U/S result showed RLE : multi-vessel arterial disease, DP, Post Tib show mild to moderat ischemia. LLE: multile vessel arterial disease, Stenosis of distal superficial femoral tib A. DP, Post Tib show mild to moderat ischemia. - Rec vasc consultt based on arterial study for poss vasc intervention. - Daily wound care order submitted. - B/L LE Pravalon boots. - IV ABx. - No acute surgical intervention required at this time. Will await official imaging studies if possible and any vasc recommendations. - Podiatry will cont to monitor. Subjective Allergies: Coded Allergies: No Known Allergies (Unverified , 05/30/17) Subjective Pt seen bedside for B/L heel ulceration. Pt resting at bedside. Objective Exam Last 24 Hour Vital Signs Date Time Temp Pulse Resp B/P (MAP) Pulse Ox O2 Delivery O2 Flow Rate FiO2 04/09/18 13:00 120/44 04/09/18 12:00 71 04/09/18 12:00 97.8 72 18 120/44 (69) 100 04/09/18 09:00 Room Air 04/09/18 08:00 97.8 68 18 134/44 (74) 98 04/09/18 08:00 67 04/09/18 04:00 98.6 71 18 143/45 (77) 98 04/09/18 03:53 68 04/09/18 00:00 98.9 67 18 124/40 (68) 98 04/08/18 23:53 68 04/08/18 22:37 139/44 04/08/18 22:37 71 139/44 04/08/18 22:36 71 139/44 04/08/18 21:00 Room Air 04/08/18 20:01 71 04/08/18 20:00 98.6 71 18 139/44 (75) 99 04/08/18 18:40 132/47 Laboratory Tests Test 04/09/18 06:10 White Blood Count 8.3 K/UL (4.8-10.8) Red Blood Count 4.70 M/UL (4.70-6.10) Hemoglobin 13.0 G/DL (14.2-18.0) L Hematocrit 41.9 % (42.0-52.0) L Mean Corpuscular Volume 89 FL (80-99) Mean Corpuscular Hemoglobin 27.6 PG (27.0-31.0) Mean Corpuscular Hemoglobin Concent 31.0 G/DL (32.0-36.0) L Red Cell Distribution Width 19.4 % (11.6-14.8) H Platelet Count 215 K/UL (150-450) Mean Platelet Volume 7.6 FL (6.5-10.1) Neutrophils (%) (Auto) 63.9 % (45.0-75.0) Lymphocytes (%) (Auto) 11.8 % (20.0-45.0) L Monocytes (%) (Auto) 9.4 % (1.0-10.0) Eosinophils (%) (Auto) 14.3 % (0.0-3.0) H Basophils (%) (Auto) 0.6 % (0.0-2.0) Sodium Level 136 MMOL/L (136-145) Potassium Level 4.3 MMOL/L (3.5-5.1) Chloride Level 101 MMOL/L (98-107) Carbon Dioxide Level 28 MMOL/L (21-32) Anion Gap 7 mmol/L (5-15) Blood Urea Nitrogen 49 mg/dL (7-18) H Creatinine 5.9 MG/DL (0.55-1.30) H Estimat Glomerular Filtration Rate mL/min (>60) Glucose Level 146 MG/DL (74-106) H Calcium Level 9.2 MG/DL (8.5-10.1) Microbiology Date/Time Source Procedure Growth Status 04/04/18 22:00 Nose MRSA Culture - Final Staphylococcus Aureus - Mrsa Complete 04/04/18 22:00 Rectum VRE Culture - 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 Complete Dermatological Wound Assessment : Exudate Amount: Scant Dermatological Narrative Focused: B/L LE exam: - Right foot: +1/4 DP/PT pulses. Plantar medial heel ulceration is noted, approx 3.0cm x 3.0 cm with overlying eschar, UTD depth of wound, (-) active purulent drainage, normal temp differential, (-) mal-odor - Left foot: +1/4 DP/PT pulses. Plantar medial heel ulceration is noted, approx 3.5cm x 3.5cm with overlying eschar, UTD depth of wound, (-) active purulent drainage, normal temp differential, (-) mal-odor Dequan Spivey DPM Apr 09, 2018 17:57
--- NOTE | 2018-04-09 19:33 | NUR ---
HAND-OFF: Report given to Kristen ZENDEJAS. Pt is asleep in bed in stable condition. Endorsed plan of care.
--- NOTE | 2018-04-09 19:34 | NUR ---
NURSE NOTES: Received report fromDinora Cat RN. Pt is sleeping in the bed w/ distress, easily arousable by voice stimuli, receiving GT feeding, Nepro running at 40/H. HOB elevated 45 degree. Safety measures are applied with bed alarm on, bed in lowest position, and breaks are engaged. Seizure precaution are applied with padded side rails and suction is ready. Call light and side table are w/in reach. Will follow plans of care.
[2018-04-09 20:00] VITALS: BP 159/59
[2018-04-09] MEDS: Tamsulosin 0.4mg cap ORAL SCH (21:39)
[2018-04-10] VITALS: BP 142/68
--- NOTE | 2018-04-10 01:10 | NUR ---
NURSE NOTES: Pt is sleeping in the bed, arousable by shaking. No distress noted. Will continue to monitor.
[2018-04-10 04:00] VITALS: BP 149/52
[2018-04-10] MEDS: Levothyroxine 125mcg tab GT SCH (06:30)
[2018-04-10] MEDS: Depakote 125mg Sprinkles GT SCH ×2 (07:13→14:00)
--- NOTE | 2018-04-10 07:25 | NUR ---
HAND-OFF: Report given to Dinora Cat RN. Pt has been cleaned, dired and repositioned.
--- NOTE | 2018-04-10 07:30 | NUR ---
NURSE NOTES: Received report from Kristen ZENDEJAS. Pt is awake, alert, confused. On room air with no respiratory distress. No signs/symptoms of pain or discomfort noted. On GT feeding Nepro at 40mL/hour, tolerating well, with no episodes of nausea/vomiting, no residual. Dialysis access left upper arm, AV shunt, and peripheral line, right AC #20G, saline lock, patent/intact. Skin has bilateral feet dressings, dry/intact, will change dressing/reassess during my shift as ordered/needed, bilateral heel protectors on. Pt is placed on seizure and fall precautions, side rails padded, suction and oxygen set up at bedside. Call light is within easy reach, bed in lowest position, three side rails up, brakes engaged, alarm on. Will continue to monitor and follow plan of care per MD orders and protocol.
[2018-04-10 08:00] VITALS: BP 128/75
[2018-04-10 08:31] LABS: BASOPHILS % (AUTO) 0.7 % (0.0-2.0); EOSINOPHILS % (AUTO) 16.7 % (0.0-3.0); HEMATOCRIT 44.1 % (42.0-52.0); HEMOGLOBIN 13.7 G/DL (14.2-18.0); MEAN CORPUSCULAR VOLUME 89 FL (80-99); MONOCYTES % (AUTO) 8.2 % (1.0-10.0); NEUTROPHILS % (AUTO) 64.5 % (45.0-75.0); PLATELET COUNT 216 K/UL (150-450); RED BLOOD COUNT 4.95 M/UL (4.70-6.10); RED CELL DISTRIBUTION WIDTH 19.5 % (11.6-14.8)
[2018-04-10] MEDS ORDERED: Terazosin 1mg cap GT SCH (09:00)
[2018-04-10] MEDS: levETIRAcetam 500mg/5ml Liquid GT SCH (09:28)
[2018-04-10] MEDS: Vitamin D 1000 IU Tab GT SCH (09:28)
[2018-04-10] MEDS: Minoxidil 2.5mg tab GT SCH (09:29)
[2018-04-10] MEDS: Aspirin Baby 81mg GT SCH (09:29)
[2018-04-10] MEDS: Nephrovite tab (Rena-Vite) GT SCH (09:29)
[2018-04-10] MEDS: HydrALAZINE 25mg tab GT SCH ×2 (09:30→13:00)
[2018-04-10] MEDS: Heparin 5000 units/ml inj SUBQ SCH (09:31)
[2018-04-10 09:37] LABS: ANION GAP 8 mmol/L (5-15); BLOOD UREA NITROGEN 40 mg/dL (7-18); CALCIUM 9.5 MG/DL (8.5-10.1); CARBON DIOXIDE 28 MMOL/L (21-32); CHLORIDE 100 MMOL/L (98-107); CREATININE 5.1 MG/DL (0.55-1.30); POTASSIUM 4.2 MMOL/L (3.5-5.1); SODIUM 136 MMOL/L (136-145)
--- NOTE | 2018-04-10 11:20 | Nephrology Progress Note ---
Assessment/Plan Plan New PEG in. Dietary to recommend. MRI of ankles, then DC to SNF. Couldn't do MRI yesterday. DC to SNF. Subjective Subjective Confused. Post PEG. On HD now .Patient not DC'ed to SNF. Not accepting during the weekend. Objective Objective Last 24 Hour Vital Signs Date Time Temp Pulse Resp B/P (MAP) Pulse Ox O2 Delivery O2 Flow Rate FiO2 04/10/18 09:30 67 138/75 04/10/18 09:30 138/75 04/10/18 09:29 138/75 04/10/18 09:29 67 138/75 04/10/18 04:05 71 04/10/18 04:00 98.8 71 20 149/52 (84) 98 04/10/18 00:00 98.4 70 20 142/68 (92) 99 04/09/18 23:20 65 04/09/18 22:09 74 159/59 04/09/18 21:40 159/59 04/09/18 21:40 74 159/59 04/09/18 21:00 Room Air 04/09/18 20:00 98.4 74 20 159/59 (92) 99 04/09/18 19:08 65 04/09/18 18:59 147/63 04/09/18 16:00 96.4 71 20 147/63 (91) 99 04/09/18 16:00 68 04/09/18 13:00 120/44 04/09/18 12:00 71 04/09/18 12:00 97.8 72 18 120/44 (69) 100 Laboratory Tests 04/10/18 07:48: White Blood Count 8.0, Red Blood Count 4.95, Hemoglobin 13.7L, Hematocrit 44.1, Mean Corpuscular Volume 89, Mean Corpuscular Hemoglobin 27.6, Mean Corpuscular Hemoglobin Concent 31.0L, Red Cell Distribution Width 19.5H, Platelet Count 216 , Mean Platelet Volume 6.9, Neutrophils (%) (Auto) 64.5, Lymphocytes (%) (Auto) 10.0L, Monocytes (%) (Auto) 8.2, Eosinophils (%) (Auto) 16.7H, Basophils (%) ( Auto) 0.7, Sodium Level 136, Potassium Level 4.2, Chloride Level 100, Carbon Dioxide Level 28, Anion Gap 8, Blood Urea Nitrogen 40H, Creatinine 5.1H, Estimat Glomerular Filtration Rate , Glucose Level 173H, Calcium Level 9.5 Height (Feet): 5 Height (Inches): 8.00 Weight (Pounds): 153 Objective CV RR Lungs CTA Abd SNT. BS + New Edda Zafar MD Apr 10, 2018 11:20
--- NOTE | 2018-04-10 11:41 | NUR ---
*-* DISCHARGE PLANNING *-* PATIENT HAS BEEN REFERRED TO: [facility] P:[phone] F:[phone]
[2018-04-10 12:00] VITALS: BP 120/48
--- NOTE | 2018-04-10 12:04 | General Progress Note ---
Assessment/Plan Problem List: (1) Dementia with behavioral disturbance ICD Codes: F03.91 - Unspecified dementia with behavioral disturbance SNOMED: 7513718975058 Assessment/Plan depakote 250mg po tid zyprexa 5mg qhs prn Subjective Neurologic/Psychiatric: Reports: anxiety, depressed, emotional problems Allergies: Coded Allergies: No Known Allergies (Unverified , 05/30/17) Objective Last 24 Hour Vital Signs Date Time Temp Pulse Resp B/P (MAP) Pulse Ox O2 Delivery O2 Flow Rate FiO2 04/10/18 09:30 67 138/75 04/10/18 09:30 138/75 04/10/18 09:29 138/75 04/10/18 09:29 67 138/75 04/10/18 04:05 71 04/10/18 04:00 98.8 71 20 149/52 (84) 98 04/10/18 00:00 98.4 70 20 142/68 (92) 99 04/09/18 23:20 65 04/09/18 22:09 74 159/59 04/09/18 21:40 159/59 04/09/18 21:40 74 159/59 04/09/18 21:00 Room Air 04/09/18 20:00 98.4 74 20 159/59 (92) 99 04/09/18 19:08 65 04/09/18 18:59 147/63 04/09/18 16:00 96.4 71 20 147/63 (91) 99 04/09/18 16:00 68 04/09/18 13:00 120/44 Laboratory Tests 04/10/18 07:48: White Blood Count 8.0, Red Blood Count 4.95, Hemoglobin 13.7L, Hematocrit 44.1, Mean Corpuscular Volume 89, Mean Corpuscular Hemoglobin 27.6, Mean Corpuscular Hemoglobin Concent 31.0L, Red Cell Distribution Width 19.5H, Platelet Count 216 , Mean Platelet Volume 6.9, Neutrophils (%) (Auto) 64.5, Lymphocytes (%) (Auto) 10.0L, Monocytes (%) (Auto) 8.2, Eosinophils (%) (Auto) 16.7H, Basophils (%) ( Auto) 0.7, Sodium Level 136, Potassium Level 4.2, Chloride Level 100, Carbon Dioxide Level 28, Anion Gap 8, Blood Urea Nitrogen 40H, Creatinine 5.1H, Estimat Glomerular Filtration Rate , Glucose Level 173H, Calcium Level 9.5 Height (Feet): 5 Height (Inches): 8.00 Weight (Pounds): 153 General Appearance: alert, confused, agitated Pravin Humphries MD Apr 10, 2018 12:04
--- NOTE | 2018-04-10 12:22 | NUR ---
*-* DISCHARGE PLANNED *-* [facility] ROOM# [id number] SKILLED T:[phone] FOR NURSE TO NURSE REPORT AMBULANCE HAS BEEN ARRANGED FOR PICK AT [phone]
--- NOTE | 2018-04-10 13:08 | NUR ---
WENT TO REATTEMPT MRI ON PT AT 13:00, THIS TIME W/O SEDATION. I WAS TOLD PATIENT IS BEING DISCHARGED AND THE MRI EXAM WAS CANCELLED PER DR. STANLEY, PER AASHISH FELIX.
--- NOTE | 2018-04-10 13:20 | GI Progress Note ---
Assessment/Plan Problems: (1) Severe malnutrition ICD Codes: E43 - Unspecified severe protein-calorie malnutrition SNOMED: 61088849 (2) GERD (gastroesophageal reflux disease) ICD Codes: K21.9 - Gastro-esophageal reflux disease without esophagitis SNOMED: 379602340 (3) Dementia ICD Codes: F03.90 - Unspecified dementia without behavioral disturbance SNOMED: 31691538 (4) Anemia ICD Codes: D64.9 - Anemia, unspecified SNOMED: 640121389 (5) Constipation ICD Codes: K59.00 - Constipation, unspecified SNOMED: 72893774 (6) Encounter for generalized patient complaints ICD Codes: Z00.8 - Encounter for other general examination SNOMED: 760350342 (7) Dehydration ICD Codes: E86.0 - Dehydration SNOMED: 61751040 (8) PEG (percutaneous endoscopic gastrostomy) adjustment/replacement/removal ICD Codes: Z43.1 - Encounter for attention to gastrostomy SNOMED: 704337737, 504113016 Status: stable Status Narrative Discussed with Dr. Mcdaniel Assessment/Plan s/p GT placement GTF per RD to goal GT care bowel regime dc planning per primary team The patient was seen and examined at bedside and all new and available data was reviewed in the patients chart. I agree with the above findings, impression and plan. (Patient seen earlier today. Signature stamp does not reflect patient encounter time.). - Homero Mcdaniel MD Subjective Gastrointestinal/Abdominal: Reports: no symptoms Objective Last 24 Hour Vital Signs Date Time Temp Pulse Resp B/P (MAP) Pulse Ox O2 Delivery O2 Flow Rate FiO2 04/10/18 12:00 60 04/10/18 12:00 98.2 60 20 120/48 (72) 99 04/10/18 09:30 67 138/75 04/10/18 09:30 138/75 04/10/18 09:29 138/75 04/10/18 09:29 67 138/75 04/10/18 09:00 Room Air 04/10/18 08:00 98.1 67 20 128/75 (92) 100 04/10/18 08:00 65 04/10/18 04:05 71 04/10/18 04:00 98.8 71 20 149/52 (84) 98 04/10/18 00:00 98.4 70 20 142/68 (92) 99 04/09/18 23:20 65 04/09/18 22:09 74 159/59 04/09/18 21:40 159/59 04/09/18 21:40 74 159/59 04/09/18 21:00 Room Air 04/09/18 20:00 98.4 74 20 159/59 (92) 99 04/09/18 19:08 65 04/09/18 18:59 147/63 04/09/18 16:00 96.4 71 20 147/63 (91) 99 04/09/18 16:00 68 Laboratory Tests Test 04/10/18 07:48 White Blood Count 8.0 K/UL (4.8-10.8) Red Blood Count 4.95 M/UL (4.70-6.10) Hemoglobin 13.7 G/DL (14.2-18.0) L Hematocrit 44.1 % (42.0-52.0) Mean Corpuscular Volume 89 FL (80-99) Mean Corpuscular Hemoglobin 27.6 PG (27.0-31.0) Mean Corpuscular Hemoglobin Concent 31.0 G/DL (32.0-36.0) L Red Cell Distribution Width 19.5 % (11.6-14.8) H Platelet Count 216 K/UL (150-450) Mean Platelet Volume 6.9 FL (6.5-10.1) Neutrophils (%) (Auto) 64.5 % (45.0-75.0) Lymphocytes (%) (Auto) 10.0 % (20.0-45.0) L Monocytes (%) (Auto) 8.2 % (1.0-10.0) Eosinophils (%) (Auto) 16.7 % (0.0-3.0) H Basophils (%) (Auto) 0.7 % (0.0-2.0) Sodium Level 136 MMOL/L (136-145) Potassium Level 4.2 MMOL/L (3.5-5.1) Chloride Level 100 MMOL/L (98-107) Carbon Dioxide Level 28 MMOL/L (21-32) Anion Gap 8 mmol/L (5-15) Blood Urea Nitrogen 40 mg/dL (7-18) H Creatinine 5.1 MG/DL (0.55-1.30) H Estimat Glomerular Filtration Rate mL/min (>60) Glucose Level 173 MG/DL (74-106) H Calcium Level 9.5 MG/DL (8.5-10.1) Height (Feet): 5 Height (Inches): 8.00 Weight (Pounds): 153 General Appearance: WD/WN, no apparent distress, alert Cardiovascular: normal rate Respiratory/Chest: normal breath sounds, no respiratory distress Abdominal Exam: normal bowel sounds, non tender, soft, GT site - Clean dry and intact Extremities: normal range of motion, non-tender Carol An NP Apr 10, 2018 13:20
--- NOTE | 2018-04-10 14:30 | NUR ---
NURSE NOTES: Pt was discharged per MD order. Tele monitor removed and returned. IV access removed. Pt's belonging's list checked/signed. Report given to Manda at receiving facility/SNF. Pt left facility in stable condition, via BLS transport. Photo of pt's bilateral heels and sacrum taken, will be uploaded.
--- NOTE | 2018-04-11 10:06 | Discharge Summary ---
Discharge Summary Discharge Summary _ DATE OF ADMISSION: 04/04/2018 DATE OF DISCHARGE: 04/10/2018 DISCHARGED BY: Dr. 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 Patient had a G-tube in the past, that was removed several months ago. After removal of the G-tube patient declined nutritional intake, and according to nursing staff at the facility did not consume enough calories and protein. Laboratory workup revealed no leukocytosis, stable hemoglobin hematocrit. BUN 11, creatinine 3.0. Troponin negative. Albumin 2.8. Stable electrolytes. TSH 5.67 Serum alcohol level was negative. Patient was admitted for placement of G-tube. CONSULTANTS: GI specialist Dr. Mcdaniel Real Estate Processor Dr. Spivey surgery Dr. Benz psychiatrist [facility] COURSE: Patient admitted to telemetry floor. Hemodialysis provided as per precinct i police sergeant recommendations with close monitoring of volumes , cardiorenal parameters and electrolytes. GI specialist and surgery consults were requested. Consent was obtained, and patient subsequently undergone on upper endoscopy with PEG placement. Abdominal binder was applied postprocedure. G-tube site care provided. Tube feeding started later as per registered dietitian recommendation of tube feeding type and goal rate. Strict aspiration and reflux precautions were maintained. Patient was able to tolerate tube feeding. Bowel regimen instituted. GI prophylaxis with PPI provided. Nutritional recommendation regarding protein supplements implemented in plan of care. General surgeon seen and evaluated patient for deep tissue pressure injury to right heel and stable dry eschar to left heel. Wound care provided as per general surgeon recommendation. Podiatry consult was recommended , who seen and evaluated patient for bilateral heel ulceration . X-ray of the bilateral foot reveal no evidence of acute fracture , and showed soft tissue edema. Arterial duplex bilateral lower extremity revealed moderate ischemia tibial artery bilaterally and moderate stenosis with 50-60% in the distal superficial femoral tibial vein left lower extremity. Per load checker evaluation, no acute surgical intervention was required at this time. MRI of bilateral foot , as ordered by load checker, unable to be done prior to discharge , and recommended to be done as outpatient due to elevated inflammatory markers: ESR 42 , CRP . 12.7 . Wound culture of the right foot revealed MRSA. Antibiotic provided as per podiatry recommendation. [facility] facility medications were resumed. Blood pressure was managed with multiply regimen of antihypertensive , remained stable. Dose of Synthroid was uptitrated due to elevated TSH. Seizure precautions were maintained, Depakote and Keppra was continued. Antiplatelet therapy with aspirin continued. GI prophylaxis provided. Psychiatrist closely followed . Psychiatrist y diagnosed patient with dementia with behavioral disturbances. Psychiatric medication regimen optimized as per psychiatrist. Reality orientation supportive therapy provided. Patient clinically stabilized. Patient tolerated G-tube feedings. Patient was stable for discharge back to senior living facility for continuation of care. FINAL DIAGNOSES: Severe protein calorie malnutrition. Dehydration Status post EGD with placement of gastrostomy tube GERD Bilateral heel ulcer End-stage renal disease due to diabetic nephropathy; on hemodialysis Diabetes mellitus type 2 Dementia with behavioral disturbances Degenerative joint disease. Organic brain syndrome. Hypertensive cardiovascular disease. Hypothyroidism. Seizure disorder. DISCHARGE MEDICATIONS: See Medication Reconciliation list. DISCHARGE INSTRUCTIONS: Patient was discharged to the senior living facility. Follow up with medical doctor at the facility. I have been assigned to dictate discharge summary for this account. I was not involved in the patient's management. Mar Yin NP Apr 11, 2018 10:06
== END 2018-04-10 14:30 | DRG 640 ==
LOC: EDBD 15:37 → EMR 16:10 → EDBEDREQ 16:44 → 2E 17:32 → EDBEDREQ 18:44 → 2E 04-05 20:32
PROC: 0DH63UZ Insertion of Feeding Device into Stomach, Percutaneous Approach (ICD-10-PCS; principal; 2018-04-06 10:14)
PROC: 5A1D70Z Performance of Urinary Filtration, Intermittent, Less than 6 Hours Per Day (ICD-10-PCS; principal; 2018-04-06 10:14)
DX: E43 Unspecified severe protein-calorie malnutrition (principal); N18.6 End stage renal disease; F03.91 Unspecified dementia, unspecified severity, with behavioral disturbance; I13.11 Hypertensive heart and chronic kidney disease without heart failure, with stage 5 chronic kidney disease, or end stage renal disease; E86.0 Dehydration; R62.7 Adult failure to thrive; K21.9 Gastro-esophageal reflux disease without esophagitis; E11.22 Type 2 diabetes mellitus with diabetic chronic kidney disease; Z99.2 Dependence on renal dialysis; L89.610 Pressure ulcer of right heel, unstageable; M19.90 Unspecified osteoarthritis, unspecified site; B95.62 Methicillin resistant Staphylococcus aureus infection as the cause of diseases classified elsewhere; F09 Unspecified mental disorder due to known physiological condition; G40.909 Epilepsy, unspecified, not intractable, without status epilepticus; R13.10 Dysphagia, unspecified; K59.00 Constipation, unspecified; Z68.21 Body mass index [BMI] 21.0-21.9, adult
CPT/HCPCS: 36415; 80048; 80053; 80299; 80329; 84443; 84484; 85025; 85610; 85651; 85730; 86140; 86850; 86900; 86901; 87070; 87081; 87181; 87205; 93005; 93925; 94003; 94150; 99285

== ENCOUNTER 2018-05-23 12:57 | Inpatient (IN) | payer MEDICARE, OTHER ==
[~2018-05-23] VITALS: Ht 172.7 cm; Wt 61.0 kg
[~2018-05-23 12:57] MED LIST changes: +ASPIRIN81 MG GT; +DEPAKOTE SPRIN125 M1 GT; +HEPARIN SO5000 UNIT2 SUBQ; +HYDRALAZINE HCL25 M1 GT; +HYTRIN1 MG ORAL; +KEPPRA LIQ100 MG/1 M GT; +LEVOTHYROXINE125 MCG GT; +LONITEN2.5 MG GT; +MIRCERA IJ; +NEPHROVITE1 TAB GT; +NORMODYNE100 MG GT; +NORVASC5 MG GT; +VITAMIN D1000 UNI1 GT; +VITAMIN D1000 UNI1 ORAL
--- NOTE | 2018-05-23 17:00 | NUR ---
NURSE NOTES: Pt received as a direct admit under the direction of Dr. Flores. Per report of MD pt experienced low b/p while at dialysis center. Pt is only orientated to name. Breathing room air. Gtube pt. Has multiple skin concerns to bilateral heels, and lateral left foot. Orders obtained from Dr. Flores. Pt is only orientated to name. Required redirection for attempts of removing clothing. [facility] phoned to obtain vaccinations hx. Pt is a poor historian, unable to determine past medical hx. All anticipated needs met. No facial grimace of pain, noted. facility protocol put in place for skin concerns. [employer] Commerce Architect spoke to daughter informed daughter pt is in stable condition and current plan of care.
--- NOTE | 2018-05-23 19:00 | NUR ---
NURSE NOTES: Pt currently sleeping bed is in safe position
[2018-05-23] MEDS ORDERED: Albuterol/Ipratropium 3ml neb HHN PRN (19:30)
[2018-05-23 20:00] VITALS: BP 147/68
--- NOTE | 2018-05-23 20:00 | NUR ---
NURSE NOTES: Received report from AASHISH Solano. Patient A&Ox1 to name. IV intact, patent, and saline locked. On room air, no signs of distress or labored breathing. AV shunt has bruit and thrill present. Side rails x3. Bed in lowest position with call light in reach. Will continue with plan of care.
--- NOTE | 2018-05-23 20:21 | NUR ---
HAND-OFF: Report given to .Hyacinth ZENDEJAS
--- NOTE | 2018-05-23 20:42 | NUR ---
NURSE NOTES: Unable to carry out order for flomax 0.4 per pharmacy medication adheres to gtube. Dr morales . awaiting return call endorsed to oncoming nurse. Will follow in am if necessary
[2018-05-23] MEDS ORDERED: Depakote 125mg Sprinkles GT SCH (20:45)
[2018-05-23] MEDS: Heparin 5000 units/ml inj SUBQ SCH (21:00)
[2018-05-23] MEDS: levETIRAcetam 500mg/5ml Liquid GT SCH (22:15)
[2018-05-23] MEDS: Labetalol 200mg tab GT SCH (22:16)
[2018-05-24] VITALS: BP 149/58
[2018-05-24 04:00] VITALS: BP 148/50
[2018-05-24 06:46] LABS: HEMATOCRIT 36.4 % (42.0-52.0); HEMOGLOBIN 11.3 G/DL (14.2-18.0); MEAN CORPUSCULAR VOLUME 87 FL (80-99); PLATELET COUNT 237 K/UL (150-450); RED CELL DISTRIBUTION WIDTH 18.3 % (11.6-14.8)
[2018-05-24] MEDS: Levothyroxine 125mcg tab GT SCH (06:49)
--- NOTE | 2018-05-24 07:20 | NUR ---
HAND-OFF: Report given to AASHISH Solano.
[2018-05-24 07:21] LABS: ANION GAP 6 mmol/L (5-15); BLOOD UREA NITROGEN 24 mg/dL (7-18); CALCIUM 9.4 MG/DL (8.5-10.1); CARBON DIOXIDE 28 MMOL/L (21-32); CHLORIDE 109 MMOL/L (98-107); CREATININE 2.8 MG/DL (0.55-1.30); POTASSIUM 3.6 MMOL/L (3.5-5.1); SODIUM 143 MMOL/L (136-145)
--- NOTE | 2018-05-24 07:36 | NUR ---
NURSE NOTES: Pt awake talking to self. All anticipated need will require to be met. Bed is in safe position
[2018-05-24 08:00] VITALS: BP 157/56
[2018-05-24] MEDS: Depakote 125mg Sprinkles GT SCH ×3 (08:57→17:16)
[2018-05-24] MEDS: Nephrovite tab (Rena-Vite) GT SCH (08:57)
[2018-05-24] MEDS: Vitamin D 1000 IU Tab GT SCH (08:57)
[2018-05-24] MEDS: Aspirin Baby 81mg GT SCH (08:58)
[2018-05-24] MEDS: Heparin 5000 units/ml inj SUBQ SCH ×2 (09:00→20:30)
[2018-05-24] MEDS: levETIRAcetam 500mg/5ml Liquid GT SCH ×2 (09:01→20:28)
--- NOTE | 2018-05-24 09:04 | NUR ---
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 CKD VS: BP 148/50, P 20, T 97.1, RR 20, SpO2 100 BUN 24, CR 2.8, Glucose 145, Chloride 109, RBC 4.20 IS:DIVALPROEX SODIUM 250mg GT LEVOFLOXACIN 50ml IVPB NORMODYNE 200mg GT ADMITTED TO MED/SURG DC PLAN: RETURN TO [facility].
--- NOTE | 2018-05-24 09:12 | NUR ---
RADIOLOGY DEPT., CHEST X-RAY DONE.-P.DYE
--- NOTE | 2018-05-24 11:27 | NUR ---
RD ASSESSMENT & RECOMMENDATIONS SEE CARE ACTIVITY FOR COMPLETE ASSESSMENT DAILY ESTIMATED NEEDS: Needs based on ESRD ON HD, wound, underweight 62kg 28-33 kcals/kg 0782-0454 total kcals 1.25-1.8 g protein/kg 78-112 g total protein Fluid per MD, on HD NUTRITION DIAGNOSIS: - Increased kcal and protein needs r/t wound healing and renal dysfunction as evidenced by pt w/ ESRD on HD, multiple wounds and advanced appearing L heel wound. - Swallowing difficulty R/T dysphagia, h/o CVA and dementia as evidenced by s/p PEG placement to meet nutritional needs w/ GT feeding. CURRENT TF: NEPRO @ 35ML/HR X 22 HRS ENTERAL NUTRITION RECOMMENDATIONS: Nepro @ 45ml/hr x 22 hrs + Prosource x1 pack daily to provide 990ml, 1782kcal, 80g +11g prot, 720ml free water * Rec to increase goal rate to 45ml/hr- meets 100% est kcal/prot needs * HOLD 1 hour before and after synthroid meds * Add Prosource 1 pack daily to better meet est protein needs * HOB over 30 degrees/ water flush per MD ADDITIONAL RECOMMENDATIONS: 1) Monitor lytes closely w/ TF, replete as needed 2) Wound care: add CLAUDIA BID + Nephrovite daily (f/up w/ WC eval) REC VIT C PER NEPHRO MD 3) F/up w/ H&P 4) Recalibrate bed scale-> pt is 62kg as per HD center (05/23) . .
--- NOTE | 2018-05-24 12:16 | Diagnostic Imaging Report ---
Indication: Cough Technique: One view of the chest Comparison: none Findings: , And pleural spaces are clear. The heart size is normal. The aorta is calcified. Venous stents are seen in the left upper arm Impression: No acute process
--- NOTE | 2018-05-24 14:12 | Consultation ---
History of Present Illness Present Illness HPI 83-year-old male, with hx of dementia with behavioral disturbance and agitation who became short of breath and hypotensive. The pt is confused. His meds were recently readjusted. the pt is less agitated on depakote. the pt is has memory problems and is unable to provided any history. Allergies: Coded Allergies: No Known Allergies (Unverified , 05/30/17) Medication History Scheduled Amlodipine Besylate (Norvasc), 5 MG GT Q12HR Amlodipine Besylate* (Amlodipine Besylate*), 5 MG PO BID, (Reported) Aspirin* (Aspir 81*), 81 MG ORAL DAILY, (Reported) Aspirin* (Aspirin*), 81 MG GT DAILY Cholecalciferol (Vitamin D3)* (Vitamin D*), 1,000 UNIT ORAL DAILY, (Reported) Cholecalciferol (Vitamin D3)* (Vitamin D*), 1,000 INTLU GT DAILY Divalproex Sodium (Divalproex Sodium), 250 MG GT Q8HR Divalproex Sodium* (Depakote Er*), 250 MG ORAL TID, (Reported) Heparin Sod (Porcine) (Heparin Sodium*), 5,000 UNITS SUBQ EVERY 12 HOURS Hydralazine Hcl* (Hydralazine Hcl*), 25 MG PO QID, (Reported) Hydralazine Hcl* (Hydralazine Hcl*), 25 MG GT QID Labetalol HCl (Labetalol HCl), 400 MG GT EVERY 12 HOURS Labetalol Hcl* (Normodyne*), 400 MG PO EVERY 12 HOURS, (Reported) Levetiracetam (Keppra), 500 MG GT Q12HR Levetiracetam* (Levetiracetam*), 500 MG PO BID, (Reported) Levothyroxine Sodium* (Levothyroxine Sodium*), 125 MCG PO DAILY, (Reported) Levothyroxine Sodium* (Levothyroxine Sodium*), 125 MCG GT DAILY@0630 Methoxy Peg-Epoetin Beta (Mircera), 75 MCG IJ Q2WKS ON 3RD HD, (Reported) Minoxidil (Minoxidil), 5 MG GT DAILY Minoxidil* (Loniten*), 5 MG PO DAILY, (Reported) Tamsulosin Hcl (Tamsulosin Hcl*), 0.4 MG PO BEDTIME, (Reported) Terazosin HCl (Terazosin HCl), 1 MG ORAL DAILY Vitamin B Cmplx/Vit C/Folic AC (Nephro-Kecia Tablet), 1 TAB PO BID, (Reported) Vitamin B Cmplx/Vit C/Folic AC (Nephro-Kecia Tablet), 1 TAB GT BID Patient History Limited by: medical condition History Provided By: Medical Record, PMD Healthcare decision maker Resuscitation status Full Code Advanced Directive on File No Past Medical/Surgical History Past Medical/Surgical History: (1) Pneumonia (2) Encounter for generalized patient complaints (3) Constipation (4) Anemia (5) Dementia (6) GERD (gastroesophageal reflux disease) (7) Severe malnutrition (8) PEG (percutaneous endoscopic gastrostomy) adjustment/replacement/removal (9) Dehydration (10) ESRD (end stage renal disease) (11) Arthritis (12) Hypothyroidism (13) Chronic pancreatitis (14) Weakness (15) HTN (hypertension) (16) Colonoscopy planned (17) Dementia with behavioral disturbance Review of Systems Psychiatric: Reports: prior hx, anxiety, depressed feelings, emotional problems Physical Exam General Appearance: WD/WN, alert, confused, agitated Last 24 Hour Vital Signs Date Time Temp Pulse Resp B/P (MAP) Pulse Ox O2 Delivery O2 Flow Rate FiO2 05/24/18 09:55 68 20 05/24/18 09:00 Room Air 05/24/18 08:59 69 151/56 05/24/18 08:00 98.2 67 157/56 (89) 05/24/18 04:00 97.1 65 20 148/50 (82) 100 05/24/18 00:00 97.4 63 20 149/58 (88) 100 05/23/18 22:16 68 147/68 05/23/18 21:00 Room Air 05/23/18 20:00 97.4 68 20 147/68 (94) 100 05/23/18 18:02 Room Air Intake and Output 05/23/18 05/24/18 19:00 07:00 Intake Total 545 ml Balance 545 ml Intake Free Water 180 ml IV Total 50 ml Tube Feeding 315 ml Laboratory Tests Test 05/24/18 06:10 White Blood Count 7.0 K/UL (4.8-10.8) Red Blood Count 4.20 M/UL (4.70-6.10) L Hemoglobin 11.3 G/DL (14.2-18.0) L Hematocrit 36.4 % (42.0-52.0) L Mean Corpuscular Volume 87 FL (80-99) Mean Corpuscular Hemoglobin 26.8 PG (27.0-31.0) L Mean Corpuscular Hemoglobin Concent 30.9 G/DL (32.0-36.0) L Red Cell Distribution Width 18.3 % (11.6-14.8) H Platelet Count 237 K/UL (150-450) Mean Platelet Volume 6.4 FL (6.5-10.1) L Neutrophils (%) (Auto) % (45.0-75.0) Lymphocytes (%) (Auto) % (20.0-45.0) Monocytes (%) (Auto) % (1.0-10.0) Eosinophils (%) (Auto) % (0.0-3.0) Basophils (%) (Auto) % (0.0-2.0) Differential Total Cells Counted 100 Neutrophils % (Manual) 53 % (45-75) Lymphocytes % (Manual) 11 % (20-45) L Monocytes % (Manual) 7 % (1-10) Eosinophils % (Manual) 29 % (0-3) H Basophils % (Manual) 0 % (0-2) Band Neutrophils 0 % (0-8) Platelet Estimate Adequate Platelet Morphology Normal Sodium Level 143 MMOL/L (136-145) Potassium Level 3.6 MMOL/L (3.5-5.1) Chloride Level 109 MMOL/L (98-107) H Carbon Dioxide Level 28 MMOL/L (21-32) Anion Gap 6 mmol/L (5-15) Blood Urea Nitrogen 24 mg/dL (7-18) H Creatinine 2.8 MG/DL (0.55-1.30) H Estimat Glomerular Filtration Rate mL/min (>60) Glucose Level 145 MG/DL (74-106) H Calcium Level 9.4 MG/DL (8.5-10.1) Height (Feet): 5 Height (Inches): 8.00 Weight (Pounds): 134 Medications Current Medications Medications (Trade) Dose Ordered Sig/Yamilka Route PRN Reason Start Time Stop Time Status Last Admin Dose Admin Albuterol/ Ipratropium (Albuterol/ Ipratropium) 3 ml Q6H PRN HHN Shortness of Breath 05/23/18 19:30 05/28/18 19:29 Amlodipine Besylate (Norvasc) 5 mg DAILY GT 05/24/18 09:00 06/23/18 08:59 05/24/18 08:59 Aspirin (ASA) 81 mg DAILY GT 05/24/18 09:00 06/23/18 08:59 05/24/18 08:58 Divalproex Sodium (Depakote Sprinkles) 250 mg TID GT 05/24/18 09:00 06/23/18 08:59 05/24/18 13:25 Heparin Sodium (Porcine) (Heparin 5000 units/ml) 5,000 units EVERY 12 HOURS SUBQ 05/23/18 21:00 06/22/18 20:59 Labetalol HCl (Normodyne) 200 mg Q24HRS GT 05/23/18 21:00 06/22/18 20:59 05/23/18 22:16 Levetiracetam (Keppra) 500 mg Q12HR GT 05/23/18 21:00 06/22/18 20:59 05/24/18 09:01 Levofloxacin 50 ml @ 50 mls/hr Q48H IVPB 05/23/18 21:00 05/30/18 20:59 05/23/18 23:19 Levothyroxine Sodium (Synthroid) 125 mcg DAILY@0630 GT 05/24/18 06:30 06/23/18 06:29 05/24/18 06:49 Vitamin B Complex/ Vit C/Folic Acid (Nephrovite) 1 tab DAILY GT 05/24/18 09:00 06/23/18 08:59 05/24/18 08:57 Vitamin D (Vitamin D) 1,000 intlu DAILY GT 05/24/18 09:00 06/23/18 08:59 05/24/18 08:57 Assessment/Plan Problem List: (1) Dementia with behavioral disturbance ICD Codes: F03.91 - Unspecified dementia with behavioral disturbance SNOMED: 5765088609631 Status: unchanged Assessment/Plan cont depakote the pt lacks capacity to make decisions Pravin Humphries MD May 24, 2018 14:12
[2018-05-24 15:35] VITALS: BP 119/79
--- NOTE | 2018-05-24 15:39 | NUR ---
NURSE NOTES:WOUND CARE NOTES:Pt presented on admission with partially opened DTPI L hip. Base of wound is maroon -indurated with full thickness opening centrally with 50% slough.Dark skin tone without erythema or induration periwound.No odor or exudate noted.(L)5cm x (W)3.4cm. Partially opened DTPI L heel. Medially heel is purple in colour with fluctuance with open wound laterally with small amt Biofilm. Wound in it's entirety medially to to laterally measures (L)3cm x (W)6cm with open wound measuring (L)1cm x (W))2.3cm. No odor noted. Scattered partial thickness wounds with pink granulation noted to lateral and dorsal and lateral aspect of L foot. Full thickness pressure injury R heel with 50% yellow slough;50% pink granulation .(+) maceration along borders.Small amt non-odorous serous exudate .Periwound without fluctuance or induration.(L)5cm x (W)3.4cm. Resolving pressure injury to Sacrum .Base of wound with pink epithelial tissue .No odor or exudate noted. Dark skin tone without induration or fluctuance periwound. Pt noted to have dry scaly plaques to trunk ,and both upper and lower extremities .Pt confirmed Hx of Psoriasis. Staff instructed to moisturize skin with Phytoplex Nourishing Cream Daily. Tx.Plan. Cleanse L heel wound with Saline. Apply Therahoney.Apply Cavilon Skin Barrier periwound. Cover with ABD pad and wrap with Kerlix daily and prn. Cleanse R heel with Saline.Apply Therahoney. Apply Cavilon SKin Barrier Periwound. Cover with ABD pad .Wrap with kerlix Daily and prn. Apply Cavilon SKin Barrier to wounds lateral aspects of R and L foot and dorsal L foot Daily. Cleanse L Hip Wound with Saline. Apply Therahoney .Apply Cavilon Skin Barrier wipe periwound. Cover with Optifoam drsg Daily and prn. Apply Triad Paste to Sacrum .Cover with Optifoam drsg. Cover with Optifoam drsg .Change Q 3 days and prn. APM/BEVERLEY mattress overlay. Reposition at least every 2hours or as tolerated.Minimal positioning on L side. Off-load heels with Pillow.
--- NOTE | 2018-05-24 15:53 | NUR ---
NURSE NOTES: Dr Flores phoned to follow up on Flomax order. Per pharmacy recommendation flomax adheres to gtube tubing, and it is not recommended for gtube administration, Ynia wound care nurse also seen pt made recommendations for wound care. Dr Benz also seen pt. Will follow up when Dr Perez returns call
--- NOTE | 2018-05-24 18:28 | NUR ---
NURSE NOTES: here in facility made aware of flomax order per pharmacy that it adheres to tubing. Dr gave directions not to proceed with orders for flomax. He also reviewed wound care recommendations gave approval for wound care recommendations
--- NOTE | 2018-05-24 19:32 | NUR ---
NURSE NOTES: Pt pulled out iv to rt hand and pulled of bandage to left. Endorse to oncoming nurse
--- NOTE | 2018-05-24 19:45 | NUR ---
NURSE NOTES: Received report from AASHISH Solano. Patient A&Ox1, confused. On room air, no signs of distress or labored breathing. IV D/C'd per patient, will replace. GT intact, patent, and infusing feeding. HOB at least 30 degrees. Bed in lowest position with call light in reach. Will continue with plan of care.
--- NOTE | 2018-05-24 19:46 | NUR ---
HAND-OFF: Report given to Hyacinth ZENDEJAS.
--- NOTE | 2018-05-24 19:52 | NUR ---
NURSE NOTES: Confirmed with Norma from [facility] dialysis that patient will be receiving dialysis tomorrow, 05/25/18.
[2018-05-24 20:00] VITALS: BP 143/50
[2018-05-24] MEDS: Labetalol 200mg tab GT SCH (20:27)
--- NOTE | 2018-05-24 21:30 | History and Physical Report ---
DATE OF ADMISSION: 05/23/2018 CHIEF COMPLAINT: Hypotension and shortness of breath. HISTORY OF PRESENT ILLNESS: This is an 83-year-old male, who on dialysis yesterday became short of breath and hypotensive. The patient was transferred to this hospital with suspicion of pneumonia versus acute bronchitis. 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 PAST MEDICAL HISTORY: 1. End-stage renal failure, on dialysis. 2. Gastroesophageal reflux disease. 3. Status post PEG. 4. Hypothyroidism. 5. Hypertensive cardiovascular disease. 6. Chronic obstructive pulmonary disease. HOME MEDICATIONS: Amlodipine, baby aspirin, vitamin D3, Depakote, subcutaneous heparin, hydralazine, labetalol, Keppra, Synthroid, Mircera, and tamsulosin. ALLERGIES: No known drug allergies. FAMILY HISTORY: Unable to obtain due to mental status. SOCIAL HISTORY: Unable to obtain due to mental status. REVIEW OF SYSTEMS: Unable to obtain due to mental status. PHYSICAL EXAMINATION: GENERAL: This is an elderly male, who is in no acute distress. VITAL SIGNS: Blood pressure 119/79, pulse 84 and regular, respirations 20, and temperature 97.6. HEENT: The head is normocephalic and atraumatic. Pupils are equal, round, and reactive to light and accommodation consensually. NECK: Supple. Trachea midline. There was no lymphadenopathy or thyromegaly. LUNGS: Bilateral wheezes and rhonchi. HEART: Regular rate and rhythm without rubs, murmurs, or gallops. ABDOMEN: Soft. Bowel sounds were active. He has a G-tube. EXTREMITIES: No clubbing, cyanosis, or edema. He has bilateral heel ulcers. NEUROLOGIC: He is confused. There were no gross focal findings. LABORATORY AND ANCILLARY DATA: CBC, hemoglobin 11.3 and WBC 7000. Serum chemistry, BUN 24 post dialysis and creatinine 2.8 post dialysis. Chest x-ray, no acute process. ASSESSMENT: Early pneumonia versus acute bronchitis. PLAN: 1. IV antibiotics. 2. Bronchodilators. 3. Continue fdc medications. Edda Chavez M.D. DR: KESHIA JOB#: [id number] CC: ZULEMA
[2018-05-25] VITALS (7 sets, daily range): BP systolic 99–154; BP diastolic 40–66
[2018-05-25] MEDS: Levothyroxine 125mcg tab GT SCH (06:25)
[2018-05-25 07:18] LABS: HEMATOCRIT 37.6 % (42.0-52.0); HEMOGLOBIN 11.5 G/DL (14.2-18.0); MEAN CORPUSCULAR VOLUME 87 FL (80-99); PLATELET COUNT 263 K/UL (150-450); RED BLOOD COUNT 4.34 M/UL (4.70-6.10); RED CELL DISTRIBUTION WIDTH 18.4 % (11.6-14.8); WHITE BLOOD COUNT 8.7 K/UL (4.8-10.8)
[2018-05-25 07:25] LABS: ANION GAP 8 mmol/L (5-15); BLOOD UREA NITROGEN 36 mg/dL (7-18); CALCIUM 10.1 MG/DL (8.5-10.1); CARBON DIOXIDE 28 MMOL/L (21-32); CHLORIDE 109 MMOL/L (98-107); POTASSIUM 3.6 MMOL/L (3.5-5.1); SODIUM 145 MMOL/L (136-145)
--- NOTE | 2018-05-25 08:00 | NUR ---
NURSE NOTES: Received patient A/A&Ox1, able to follow commands. No IV access, MD aware. On room air, no signs of distress or labored breathing. AV shunt on RFA, bruit and thrill present. Side rails x3. hob elevated for aspiration precaution. gtubed inplaced, patent and intact. Bed in lowest position with call light in reach. Will continue with plan of care.
[2018-05-25] MEDS: Depakote 125mg Sprinkles GT SCH ×3 (09:21→17:28)
[2018-05-25] MEDS: Nephrovite tab (Rena-Vite) GT SCH (09:21)
[2018-05-25] MEDS: Vitamin D 1000 IU Tab GT SCH (09:21)
[2018-05-25] MEDS: Aspirin Baby 81mg GT SCH (09:21)
[2018-05-25] MEDS: levETIRAcetam 500mg/5ml Liquid GT SCH ×2 (09:22→21:14)
[2018-05-25] MEDS: Heparin 5000 units/ml inj SUBQ SCH ×2 (09:24→21:32)
--- NOTE | 2018-05-25 11:48 | Nephrology Progress Note ---
Assessment/Plan Plan Acute Bronchitis - resolving ESRD - HD today Subjective Subjective Confused Objective Objective Last 24 Hour Vital Signs Date Time Temp Pulse Resp B/P (MAP) Pulse Ox O2 Delivery O2 Flow Rate FiO2 05/25/18 09:22 60 138/40 05/25/18 09:00 Room Air 05/25/18 08:46 68 20 Room Air 21 05/25/18 08:00 98.4 60 18 138/40 (72) 98 05/25/18 04:00 97.7 68 18 154/58 (90) 100 05/25/18 00:00 97.9 64 18 143/66 (91) 100 05/24/18 23:40 62 20 Room Air 21 05/24/18 21:00 Room Air 05/24/18 20:27 78 143/50 05/24/18 20:00 97.9 71 18 143/50 (81) 97 05/24/18 15:35 97.6 84 20 119/79 (92) 96 Intake and Output 05/24/18 05/25/18 19:00 07:00 Intake Total 600 ml 340 ml Output Total 400 ml Balance 200 ml 340 ml Intake Free Water 180 ml 130 ml Tube Feeding 420 ml 210 ml Output Urine Total 400 ml # Voids 3 # Bowel Movements 1 Laboratory Tests 05/25/18 06:00: White Blood Count 8.7, Red Blood Count 4.34L, Hemoglobin 11.5L, Hematocrit 37.6L , Mean Corpuscular Volume 87, Mean Corpuscular Hemoglobin 26.6L, Mean Corpuscular Hemoglobin Concent 30.7L, Red Cell Distribution Width 18.4H, Platelet Count 263, Mean Platelet Volume 6.2L, Neutrophils (%) (Auto) , Lymphocytes (%) (Auto) , Monocytes (%) (Auto) , Eosinophils (%) (Auto) , Basophils (%) (Auto) , Differential Total Cells Counted 100, Neutrophils % ( Manual) 60, Lymphocytes % (Manual) 16L, Monocytes % (Manual) 3, Eosinophils % ( Manual) 20H, Basophils % (Manual) 1, Band Neutrophils 0, Platelet Estimate Adequate, Platelet Morphology Normal, Hypochromasia 1+, Anisocytosis 1+, Sodium Level 145, Potassium Level 3.6, Chloride Level 109H, Carbon Dioxide Level 28, Anion Gap 8, Blood Urea Nitrogen 36H, Creatinine 4.0H, Estimat Glomerular Filtration Rate , Glucose Level 99, Calcium Level 10.1 Height (Feet): 5 Height (Inches): 8.00 Weight (Pounds): 134 Objective CV RR Lungs B wheezes Abd SNT. BS +. PEG OK. E B heel decubs. Edda Chavez MD May 25, 2018 11:48
--- NOTE | 2018-05-25 12:31 | NUR ---
*-* DISCHARGE PLANNED *-* PATIENT IS DISCHARGED TO: [facility] ROOM# 124-B SKILLED T:[phone] FOR NURSE TO NURSE REPORT [facility] HAS BEEN ARRANGED FOR 1430 DROP PRESS HAND S/W VERONICA [phone] *-* NOK NOTIFIED OF FATHERS D/C *-*
--- NOTE | 2018-05-25 13:34 | Consultation ---
History of Present Illness General Date patient seen: May 25, 2018 Present Illness HPI 83 year old male with multiple medical comorbidities who is well known to me from prior visits currently admitted for medical care and management was noted to still have multiple wounds requiring care. surgery called to evaluate and assist with care. patient seen, chart reviewed, patient examined. no n/v/f/c. comfortable. see photos. Allergies: Coded Allergies: No Known Allergies (Unverified , 05/30/17) Medication History Scheduled Amlodipine Besylate (Norvasc), 5 MG GT Q12HR Amlodipine Besylate* (Amlodipine Besylate*), 5 MG PO BID, (Reported) Aspirin* (Aspir 81*), 81 MG ORAL DAILY, (Reported) Aspirin* (Aspirin*), 81 MG GT DAILY Cholecalciferol (Vitamin D3)* (Vitamin D*), 1,000 UNIT ORAL DAILY, (Reported) Cholecalciferol (Vitamin D3)* (Vitamin D*), 1,000 INTLU GT DAILY Divalproex Sodium (Divalproex Sodium), 250 MG GT Q8HR Divalproex Sodium* (Depakote Er*), 250 MG ORAL TID, (Reported) Heparin Sod (Porcine) (Heparin Sodium*), 5,000 UNITS SUBQ EVERY 12 HOURS Hydralazine Hcl* (Hydralazine Hcl*), 25 MG PO QID, (Reported) Hydralazine Hcl* (Hydralazine Hcl*), 25 MG GT QID Labetalol HCl (Labetalol HCl), 400 MG GT EVERY 12 HOURS Labetalol Hcl* (Normodyne*), 400 MG PO EVERY 12 HOURS, (Reported) Levetiracetam (Keppra), 500 MG GT Q12HR Levetiracetam* (Levetiracetam*), 500 MG PO BID, (Reported) Levothyroxine Sodium* (Levothyroxine Sodium*), 125 MCG PO DAILY, (Reported) Levothyroxine Sodium* (Levothyroxine Sodium*), 125 MCG GT DAILY@0630 Methoxy Peg-Epoetin Beta (Mircera), 75 MCG IJ Q2WKS ON 3RD HD, (Reported) Minoxidil (Minoxidil), 5 MG GT DAILY Minoxidil* (Loniten*), 5 MG PO DAILY, (Reported) Tamsulosin Hcl (Tamsulosin Hcl*), 0.4 MG PO BEDTIME, (Reported) Terazosin HCl (Terazosin HCl), 1 MG ORAL DAILY Vitamin B Cmplx/Vit C/Folic AC (Nephro-Kecia Tablet), 1 TAB PO BID, (Reported) Vitamin B Cmplx/Vit C/Folic AC (Nephro-Kecia Tablet), 1 TAB GT BID Patient History Healthcare decision maker Resuscitation status Full Code Advanced Directive on File No Review of Systems Review of Symptoms General ROS: no weight loss or fever Psychological ROS: no depression or mood changes, no memory loss Ophthalmic ROS: no visual changes or eye irritation ENT ROS: no nasal congestion, hearing loss, dizziness Allergy and Immunology ROS: no allergic symptoms or urticaria Hematological and Lymphatic ROS: no swollen glands, unusual bleeding or bruising Endocrine ROS: no polyuria, polydipsia, weight changes, temperature intolerance Respiratory ROS: no cough, shortness of breath, or wheezing Cardiovascular ROS: no chest pain or dyspnea on exertion Gastrointestinal ROS: denies abdominal pain, bright red blood in stool. Musculoskeletal ROS: no myalgias or arthralgias Neurological ROS: no TIA or stroke symptoms Dermatological ROS: no new or changing skin lesions, rashes or pruritis Physical Exam Physical Exam General appearance: alert, cooperative, no distress, appears stated age Head: Normocephalic, without obvious abnormality, atraumatic Eyes: conjunctivae/corneas clear. PERRL, EOM's intact. Fundi benign Throat: Lips, mucosa, and tongue normal. Teeth and gums normal Neck: supple, symmetrical, trachea midline, no adenopathy, thyroid: not enlarged, symmetric, no tenderness/mass/nodules, no carotid bruit and no JVD Lungs: clear to auscultation bilaterally Heart: regular rate and rhythm, S1, S2 normal, no murmur, click, rub or gallop Abdomen: soft, non-tender. Bowel sounds normal. No masses, no organomegaly Extremities: see photos please Pulses: 2+ and symmetric Skin: Skin color, texture, turgor normal. No rashes or lesions. see photos Neurologic: Grossly normal Last 24 Hour Vital Signs Date Time Temp Pulse Resp B/P (MAP) Pulse Ox O2 Delivery O2 Flow Rate FiO2 05/25/18 12:00 98.0 65 18 132/46 (74) 98 05/25/18 09:22 60 138/40 05/25/18 09:00 Room Air 05/25/18 08:46 68 20 Room Air 21 05/25/18 08:00 98.4 60 18 138/40 (72) 98 05/25/18 04:00 97.7 68 18 154/58 (90) 100 05/25/18 00:00 97.9 64 18 143/66 (91) 100 05/24/18 23:40 62 20 Room Air 21 05/24/18 21:00 Room Air 05/24/18 20:27 78 143/50 05/24/18 20:00 97.9 71 18 143/50 (81) 97 05/24/18 15:35 97.6 84 20 119/79 (92) 96 Intake and Output 05/24/18 05/25/18 19:00 07:00 Intake Total 600 ml 340 ml Output Total 400 ml Balance 200 ml 340 ml Intake Free Water 180 ml 130 ml Tube Feeding 420 ml 210 ml Output Urine Total 400 ml # Voids 3 # Bowel Movements 1 Laboratory Tests Test 05/25/18 06:00 White Blood Count 8.7 K/UL (4.8-10.8) Red Blood Count 4.34 M/UL (4.70-6.10) L Hemoglobin 11.5 G/DL (14.2-18.0) L Hematocrit 37.6 % (42.0-52.0) L Mean Corpuscular Volume 87 FL (80-99) Mean Corpuscular Hemoglobin 26.6 PG (27.0-31.0) L Mean Corpuscular Hemoglobin Concent 30.7 G/DL (32.0-36.0) L Red Cell Distribution Width 18.4 % (11.6-14.8) H Platelet Count 263 K/UL (150-450) Mean Platelet Volume 6.2 FL (6.5-10.1) L Neutrophils (%) (Auto) % (45.0-75.0) Lymphocytes (%) (Auto) % (20.0-45.0) Monocytes (%) (Auto) % (1.0-10.0) Eosinophils (%) (Auto) % (0.0-3.0) Basophils (%) (Auto) % (0.0-2.0) Differential Total Cells Counted 100 Neutrophils % (Manual) 60 % (45-75) Lymphocytes % (Manual) 16 % (20-45) L Monocytes % (Manual) 3 % (1-10) Eosinophils % (Manual) 20 % (0-3) H Basophils % (Manual) 1 % (0-2) Band Neutrophils 0 % (0-8) Platelet Estimate Adequate Platelet Morphology Normal Hypochromasia 1+ Anisocytosis 1+ Sodium Level 145 MMOL/L (136-145) Potassium Level 3.6 MMOL/L (3.5-5.1) Chloride Level 109 MMOL/L (98-107) H Carbon Dioxide Level 28 MMOL/L (21-32) Anion Gap 8 mmol/L (5-15) Blood Urea Nitrogen 36 mg/dL (7-18) H Creatinine 4.0 MG/DL (0.55-1.30) H Estimat Glomerular Filtration Rate mL/min (>60) Glucose Level 99 MG/DL (74-106) Calcium Level 10.1 MG/DL (8.5-10.1) Height (Feet): 5 Height (Inches): 8.00 Weight (Pounds): 134 Medications Current Medications Medications (Trade) Dose Ordered Sig/Yamilka Route PRN Reason Start Time Stop Time Status Last Admin Dose Admin Albuterol/ Ipratropium (Albuterol/ Ipratropium) 3 ml Q6H PRN HHN Shortness of Breath 05/23/18 19:30 05/28/18 19:29 Amlodipine Besylate (Norvasc) 5 mg DAILY GT 05/24/18 09:00 06/23/18 08:59 05/25/18 09:22 Aspirin (ASA) 81 mg DAILY GT 05/24/18 09:00 06/23/18 08:59 05/25/18 09:21 Divalproex Sodium (Depakote Sprinkles) 250 mg TID GT 05/24/18 09:00 06/23/18 08:59 05/25/18 12:26 Heparin Sodium (Porcine) (Heparin 5000 units/ml) 5,000 units EVERY 12 HOURS SUBQ 05/23/18 21:00 06/22/18 20:59 05/25/18 09:24 Heparin Sodium (Porcine) (Heparin Sod 1000 units/ml 10ml) 2,000 unit ONCE IV 05/25/18 18:30 05/25/18 23:59 Labetalol HCl (Normodyne) 200 mg Q24HRS GT 05/23/18 21:00 06/22/18 20:59 05/24/18 20:27 Levetiracetam (Keppra) 500 mg Q12HR GT 05/23/18 21:00 06/22/18 20:59 05/25/18 09:22 Levofloxacin 50 ml @ 50 mls/hr Q48H IVPB 05/23/18 21:00 05/30/18 20:59 05/23/18 23:19 Levothyroxine Sodium (Synthroid) 125 mcg DAILY@0630 GT 05/24/18 06:30 06/23/18 06:29 05/25/18 06:25 Sodium Chloride 1,000 ml @ 500 mls/hr Q2H PRN IVLG sbp<90 during hd 05/25/18 18:23 05/25/18 23:59 Vitamin B Complex/ Vit C/Folic Acid (Nephrovite) 1 tab DAILY GT 05/24/18 09:00 06/23/18 08:59 05/25/18 09:21 Vitamin D (Vitamin D) 1,000 intlu DAILY GT 05/24/18 09:00 06/23/18 08:59 05/25/18 09:21 Assessment/Plan Problem List: (1) Decubitus ulcer, heel Assessment & Plan: Pt presented on admission with partially opened DTPI L hip. Base of wound is maroon -indurated with full thickness opening centrally with 50 % slough.Dark skin tone without erythema or induration periwound.No odor or exudate noted.(L)5cm x (W)3.4cm. Partially opened DTPI L heel. Medially heel is purple in colour with fluctuance with open wound laterally with small amt Biofilm. Wound in it's entirety medially to to laterally measures (L)3cm x (W)6cm with open wound measuring (L) 1cm x (W))2.3cm. No odor noted. Scattered partial thickness wounds with pink granulation noted to lateral and dorsal and lateral aspect of L foot. Full thickness pressure injury R heel with 50% yellow slough;50% pink granulation .(+) maceration along borders.Small amt non-odorous serous exudate .Periwound without fluctuance or induration.(L)5cm x (W)3.4cm. Resolving pressure injury to Sacrum .Base of wound with pink epithelial tissue .No odor or exudate noted. Dark skin tone without induration or fluctuance periwound. Pt noted to have dry scaly plaques to trunk ,and both upper and lower extremities .Pt confirmed Hx of Psoriasis. Staff instructed to moisturize skin with Phytoplex Nourishing Cream Daily. Tx.Plan. Cleanse L heel wound with Saline. Apply Therahoney.Apply Cavilon Skin Barrier periwound. Cover with ABD pad and wrap with Kerlix daily and prn. Cleanse R heel with Saline.Apply Therahoney. Apply Cavilon SKin Barrier Periwound. Cover with ABD pad .Wrap with kerlix Daily and prn. Apply Cavilon SKin Barrier to wounds lateral aspects of R and L foot and dorsal L foot Daily. Cleanse L Hip Wound with Saline. Apply Therahoney .Apply Cavilon Skin Barrier wipe periwound. Cover with Optifoam drsg Daily and prn. Apply Triad Paste to Sacrum .Cover with Optifoam drsg. Cover with Optifoam drsg .Change Q 3 days and prn. APM/BEVERLEY mattress overlay. Reposition at least every 2hours or as tolerated.Minimal positioning on L side. Off-load heels with Pillow. ICD Codes: L89.609 - Pressure ulcer of unspecified heel, unspecified stage SNOMED: [id number] Demarco Benz May 25, 2018 13:34
--- NOTE | 2018-05-25 14:53 | NUR ---
NURSE NOTES: called [facility] twice today to reconfirm re: HD time today. spoke with gil @ [facility] two hours ago then Lucila right now. awaits for a call back.
--- NOTE | 2018-05-25 16:44 | NUR ---
NURSE NOTES: wound photo taken and uploaded. wound care treatment rendered. gtube drsg changed. awaiting for HD nurse.
[2018-05-25] MEDS ORDERED: Heparin Sod 1000 units/ml 10ml IV SCH (18:30)
--- NOTE | 2018-05-25 19:03 | NUR ---
HAND-OFF: Report given to Bree .
--- NOTE | 2018-05-25 19:30 | NUR ---
NURSE NOTES: RECEIVED PATIENT LYING IN BED, AWAKE, ALERT/ORIENTED TO PERSON ONLY, HEMODIALYSIS ONGOING VIA LEFT UPPER ARM AV SHUNT/IRC DIALYSIS UNIT, NO ILL EFFECTS NOTED, VITALS STABLE, NO SIGNS AND SYMPTOMS OF ACUTE CARDIO RESPIRATORY DISTRESS/SHORTNESS OF BREATH. SIDE RAILS UP X3/BED IN LOWEST POSITION FOR SAFETY, SEIZURE PRECAUTIONS OBSERVED/SIDE RAILS PADDED. DISCHARGE AFTER DIALYSIS.
--- NOTE | 2018-05-25 21:00 | NUR ---
NURSE NOTES: HEMODIALYSIS COMPLETE, 2L REMOVED, DRESSING DRY AND INTACT TO LEFT UPPER ARM AV SHUNT, NO SIGNS OF BLEEDING. VITALS STABLE, AFEBRILE. NAD.
--- NOTE | 2018-05-25 21:10 | NUR ---
NURSE NOTES: TELEPHONE CALL PLACED TO [facility] REGARDING TRANSFERRING PATIENT TO [facility], ETA 45 MINUTES.
[2018-05-25] MEDS: Labetalol 200mg tab GT SCH (21:23)
--- NOTE | 2018-05-25 21:28 | General Progress Note ---
Assessment/Plan Problem List: (1) Dementia with behavioral disturbance ICD Codes: F03.91 - Unspecified dementia with behavioral disturbance SNOMED: [id number] Status: unchanged Assessment/Plan cont depakote the pt lacks capacity to make decisions Subjective Neurologic/Psychiatric: Reports: anxiety, depressed, emotional problems Allergies: Coded Allergies: No Known Allergies (Unverified , 05/30/17) Objective Last 24 Hour Vital Signs Date Time Temp Pulse Resp B/P (MAP) Pulse Ox O2 Delivery O2 Flow Rate FiO2 05/25/18 16:00 98.2 68 18 99/56 (70) 100 05/25/18 12:00 98.0 65 18 132/46 (74) 98 05/25/18 09:22 60 138/40 05/25/18 09:00 Room Air 05/25/18 08:46 68 20 Room Air 21 05/25/18 08:00 98.4 60 18 138/40 (72) 98 05/25/18 04:00 97.7 68 18 154/58 (90) 100 05/25/18 00:00 97.9 64 18 143/66 (91) 100 05/24/18 23:40 62 20 Room Air 21 Intake and Output 05/24/18 05/25/18 18:59 06:59 Intake Total 565 ml 375 ml Output Total 400 ml Balance 165 ml 375 ml Intake Free Water 180 ml 130 ml Tube Feeding 385 ml 245 ml Output Urine Total 400 ml # Voids 3 # Bowel Movements 1 Laboratory Tests 05/25/18 06:00: White Blood Count 8.7, Red Blood Count 4.34L, Hemoglobin 11.5L, Hematocrit 37.6L , Mean Corpuscular Volume 87, Mean Corpuscular Hemoglobin 26.6L, Mean Corpuscular Hemoglobin Concent 30.7L, Red Cell Distribution Width 18.4H, Platelet Count 263, Mean Platelet Volume 6.2L, Neutrophils (%) (Auto) , Lymphocytes (%) (Auto) , Monocytes (%) (Auto) , Eosinophils (%) (Auto) , Basophils (%) (Auto) , Differential Total Cells Counted 100, Neutrophils % ( Manual) 60, Lymphocytes % (Manual) 16L, Monocytes % (Manual) 3, Eosinophils % ( Manual) 20H, Basophils % (Manual) 1, Band Neutrophils 0, Platelet Estimate Adequate, Platelet Morphology Normal, Hypochromasia 1+, Anisocytosis 1+, Sodium Level 145, Potassium Level 3.6, Chloride Level 109H, Carbon Dioxide Level 28, Anion Gap 8, Blood Urea Nitrogen 36H, Creatinine 4.0H, Estimat Glomerular Filtration Rate , Glucose Level 99, Calcium Level 10.1 Height (Feet): 5 Height (Inches): 8.00 Weight (Pounds): 134 General Appearance: alert, confused, agitated Pravin Humphries MD May 25, 2018 21:28
--- NOTE | 2018-05-25 21:40 | NUR ---
NURSE NOTES: REPORT GIVEN TO CHRISTIAN, SAFETY AND HEALTH MANAGER, [facility], PATIENT WILL RETURN TO PREVIOUS ROOM 124 BED B.
[2018-05-25] MEDS ORDERED: Tubing IV Secondary IV ONE (21:49)
[2018-05-25] MEDS ORDERED: NS 500ML ONE (21:49)
[2018-05-25] MEDS ORDERED: Sterile Water For Irrig 2000ml IRRIG ONE (21:49)
--- NOTE | 2018-05-25 21:50 | NUR ---
NURSE NOTES: PATIENT DISCHARGED VIA [facility] IN STABLE CONDITION, ACCOMPANIED BY 2 ATTENDANTS, VITALS STABLE, AFEBRILE, NAD.
--- NOTE | 2018-05-27 20:12 | Discharge Summary ---
Discharge Summary Discharge Summary _ DATE OF ADMISSION: 05/23/2018 DATE OF DISCHARGE: 05/25/2018 DISCHARGED BY: Dr. Chavez REASON FOR ADMISSION: 83 years old male with past medical history of end-stage renal disease, on hemodialysis, dysphagia, status post gastrostomy tube, gastroesophageal reflux disease, hypothyroidism, hypertensive cardiovascular disease, chronic obstructive pulmonary disease, presented to the hospital for shortness of breath and hypotension. Patient became acutely short of breath and hypotensive during dialysis. Patient was admitted with suspicion of pneumonia versus acute bronchitis. CONSULTANTS: surgery Dr. Benz psychiatrist [facility] COURSE: Patient admitted to medical surgical floor. Patient started on empiric antibiotics. Supplemental oxygen titrated to keep pulse oximetry above 92%. Bronchodilator treatment via hand-held nebulizer provided [id number] and as needed. custodial facility medication resumed. Hemodialysis was arranged as per with close monitoring of volumes and renal parameters and electrolytes. Chest x-ray revealed no acute cardiopulmonary pathology. No fever no leukocytosis. Blood pressure stabilized. DVT prophylaxis provided. General surgeon seen patient for multiply wounds present on admission, including deep tissue pressure left hip partially open Deep tissue pressure left heel partially open, full-thickness pressure injury right heel. Wound care provided as per surgeon recommendation. Overlay mattress provided. Patient was repositioned every 2 hours. Heels are offloaded with pillows. Psychiatrist seen and evaluated patient. Depakote was continued. Per psychiatrist patient lacks capacity to make informed decision. Patient clinically stabilized. Pulse oximetry was stable on room air prior to discharge. Patient was discharged to shelter facility for continuation of care FINAL DIAGNOSES: Acute bronchitis- resolving End-stage renal disease, on hemodialysis Dementia with behavioral disturbance Decubitus ulcer right heel, present on admission Decubitus ulcer left heel, present on admission Decubitus ulcer left hip, present on admission DISCHARGE MEDICATIONS: See Medication Reconciliation list. DISCHARGE INSTRUCTIONS: Patient was discharged to the shelter facility. Follow up with medical doctor at the facility. I have been assigned to dictate discharge summary for this account. I was not involved in the patient's management. Mar Yin NP May 27, 2018 20:12
== END 2018-05-25 21:50 | DRG 202 ==
LOC: 4E 15:54
PROC: 5A1D70Z Performance of Urinary Filtration, Intermittent, Less than 6 Hours Per Day (ICD-10-PCS; principal; 2018-05-25)
DX: J20.9 Acute bronchitis, unspecified (principal); N18.6 End stage renal disease; F03.91 Unspecified dementia, unspecified severity, with behavioral disturbance; Z99.2 Dependence on renal dialysis; I95.9 Hypotension, unspecified; L89.220 Pressure ulcer of left hip, unstageable; L89.620 Pressure ulcer of left heel, unstageable; L89.619 Pressure ulcer of right heel, unspecified stage
CPT/HCPCS: 36415; 71045; 80048; 85007; 85025; 87081; 94664